=== PATIENT | male | born 1950 | race Caucasian/White ===

== ENCOUNTER → 2018-02-03 16:06 | Outpatient (CLI) | payer MEDICARE, SELFPAY ==
[2018-02-03 16:31] LABS: Absolute Lymphocyte Count 2.25 X10^3/ul (0.83-4.51); Absolute Neutrophil Count 4.2 X10^3/uL (2.0-7.7); Basophil# 0.03 X10^3/uL; Basophil% 0.4 % (0-1); Eosinophils% 2.8 % (0-5); Hematocrit 43.6 % (40-54); Hemoglobin 15.3 g/dl (13.0-16.5); Lymphocyte # 2.25 X10^3/ul (4.0); Lymphocyte % 31.6 % (19-41); Mean Corp Hgb Conc 35.1 g/gl (32-36); Mean Corpuscular Hgb 31.2 pg (27.0-32.0); Mean Platelet Vol. 9.8 fl (6.2-12.0); Monocyte# 0.41 X10^3/uL; Monocyte% 5.8 % (0-10); Neutrophil % 59.1 % (47-70); Platelet Count 221 K/mm3 (150-450); RBC Distribution Width CV 12.5 % (11.6-14.6); RBC Distribution Width SD 40.7 fl (35.1-43.9); White Blood Count 7.1 K/mm3 (4.4-11.0)
[2018-02-03 16:34] LABS: POSITIVE COUNT NO; POSITIVE DIFFERENTIAL NO; POSITIVE MORPHOLOGY NO
[2018-02-03 17:09] LABS: ALB/GLOB Ratio 1.2 RATIO (0.9-2.4); AST(SGOT) 19 U/L (15-37); Alanine Aminotransfer ALT/SGPT 27 U/L (16-61); Albumin, Serum 3.8 g/dL (3.2-5.0); Alkaline Phosphatase 71 U/L (45-117); Anion Gap 9 (5-15); BUN 15 mg/dL (7-18); Calcium,Total 8.9 mg/dL (8.5-10.1); Chloride 104 mmol/L (98-107); Creatinine, Serum 0.94 mg/dL (0.70-1.30); EST Glomerular Filtration Rate 86 mL/min (>60); Est Glom Filt Rate - Afr Amer 104 mL/min (>60); Globulin 3.2 g/dL (2.2-4.2); Glucose 84 mg/dL (74-106); Potassium 4.2 mmol/L (3.5-5.1); Sodium Level 140 mmol/L (136-145); Thyroid Stim Hormone (TSH) 1.78 uIU/mL (0.358-3.74)
[2018-02-04 08:28] LABS: Vitamin D,25 Hydroxy 22.4 ng/mL (29.95-100.01)
[2018-02-05 08:52] LABS: Hep C Antibodies <0.1 s/co ratio (0.0-0.9)
== END ==
PROVIDERS: Visit Provider Family Medicine Geriatric Medicine
DX: Z00.00 Encounter for general adult medical examination without abnormal findings (principal); Z12.5 Encounter for screening for malignant neoplasm of prostate; Z13.89 Encounter for screening for other disorder
CPT/HCPCS: 36415; 80053; 82306; 84153; 84443; 85025; 86803; G0103

== ENCOUNTER → 2018-03-20 07:30 | Outpatient (CLI) | payer MEDICARE, SELFPAY ==
--- NOTE | 2018-03-20 07:33 | US_ITS ---
STUDY: RENAL ULTRASOUND - COMPLETE REASON FOR EXAM: Male, 68 years old. History of renal mass. TECHNIQUE: Ultrasound evaluation of the kidneys was performed with real-time and static duncan-scale imaging. COMPARISON: None. FINDINGS: RIGHT KIDNEY: Normal location of the right kidney, which is normal in size. The right kidney measures 12.5 cm x 7.0 cm x 6.9 cm. There is a normal cortex of the right kidney. The renal cortex measures 1.3 cm. There is no right renal mass or cyst. There are no right renal calculi. There is a moderate to severe degree of hydronephrosis. DISTAL RIGHT URETER: There is mild hydroureter of the distal right ureter. There is no demonstrated right ureterovesical junction calculus. There is a visualized right ureteral jet. LEFT KIDNEY: Normal location of the left kidney, which is normal in size. The left kidney measures 13.8 cm x 5.7 cm x 7.7 cm. There is a normal cortex of the left kidney. The renal cortex measures 1.3 cm. There is no left renal mass or cyst. There are no left renal calculi. There is moderate hydronephrosis of the left kidney. DISTAL LEFT URETER: There is mild hydroureter of the distal left ureter. There is no demonstrated left ureterovesical junction calculus. There is a visualized left ureteral jet. BLADDER: The distended urinary bladder has a volume of 318 ml. Diffuse bladder wall thickening measuring 5 mm. There is no demonstrated mass within the urinary bladder. There are no demonstrated bladder calculi. US/Kidney and Bladder IMPRESSION: Bilateral hydronephrosis right greater than left. Bladder wall thickening. Electronically Signed: Shon Guerrero MD at 14:09 EDT Tel [phone], Service support ,
== END ==
PROVIDERS: Family Provider Family Medicine Geriatric Medicine; PCP Family Medicine Geriatric Medicine; Visit Provider Nurse Practitioner Adult Health
DX: Z87.448 Personal history of other diseases of urinary system (principal)
CPT/HCPCS: 76770

== ENCOUNTER → 2018-04-09 08:49 | Outpatient (CLI) | payer MEDICARE, SELFPAY ==
--- NOTE | 2018-04-09 | PROSBIL_PTH ---
PATIENT: CAROL REED LOC: [facility] U#:[id number] AGE/SX: 75/M ROOM: RE04/09/[address]: Dr. Michael Poe MD : 1950 BED: DIS: SPEC #: [id number] RECD: 04/10/18 09:15 STATUS: SURI JUDI #: [id number] HANNY: 04/09/18 00:[address]: Michael Poe DEPT: SURGICAL PATHOLOGY RECD BY: Carol Caraballo ENTERED: 04/10/18 09:15 SP TYPE: PROST BX JIMMIE DR: Dr. Jorge Roca MD Tissues: A - PROSTATE RIGHT B - PROSTATE RIGHT C - PROSTATE RIGHT D - PROSTATE LEFT E - PROSTATE LEFT F - PROSTATE LEFT Procedures: PROSTATE BX HEADER OPERATION: Prostate biopsy PRE-OP DIAGNOSIS: Elevated PSA TISSUE SUBMITTED: A - Right apex, B - Right mid, C - Right base, D - Left apex, E - Left mid, F - Left base MICROSCOPIC DIAGNOSIS A. Right prostate, apex, core biopsy: Prostatic adenocarcinoma: Link grade: 3+3=6 Number of cores involved: 2 out of 2 Proportion of tissue involved: ~30% Perineural invasion: Not identified. Greatest tumor length: 0.4 cm B. Right prostate, mid, core biopsy: High-grade prostatic intraepithelial neoplasia (HGPIN). Focal acute and chronic inflammation. C. Right prostate, base, core biopsy: Prostatic adenocarcinoma: Carmi grade: 3+3=6 Number of cores involved: 1 out of 2 Proportion of tissue involved: ~5% Perineural invasion: Not identified. Greatest tumor length: 0.6 cm. See comment. Focal high-grade prostatic intraepithelial neoplasia (HGPIN). Focal chronic inflammation. D. Left prostate, apex, core biopsy: Prostatic adenocarcinoma: Carmi grade: 3+4=7 Number of cores involved: 2 out of 2 Proportion of tissue involved: ~90% Perineural invasion: Not identified. Greatest tumor length: 0.9 cm Chronic inflammation. E. Left prostate, mid, core biopsy: Prostatic adenocarcinoma: Link grade: 3+4=7 Number of cores involved: 2 out of 2 Proportion of tissue involved: 30% Perineural invasion: Not identified. Greatest tumor length: ~0.4 cm Chronic inflammation. See comment. F. Left prostate, base, core biopsy: Prostatic adenocarcinoma: Carmi grade: 3+4=7 Number of cores involved: 3 out of 6 Proportion of tissue involved: ~20% Perineural invasion: Not identified. Greatest tumor length: ~0.3 cm Focal high-grade prostatic intraepithelial neoplasia (HGPIN). Chronic inflammation. SJ:slava 04/13/18 COMMENT C & E. The tumor is present in a discontinuous manner. Immunohistochemistry ([id number]) supports the above diagnosis. Case has been reviewed in consultation with Dr. Claudio who concurs with the above diagnosis. IDC:AM MICROSCOPIC DESCRIPTION Slides are reviewed. GROSS DESCRIPTION A - Received is one container designated prostate, right apex. The specimen consists of two elongated fragments of light orr-white soft tissue each measuring 1.2 cm in length and 0.1 cm in diameter. The specimen is totally submitted in one cassette. B - Received is one container designated prostate, right mid. The specimen consists of two elongated fragments of light orr-white soft tissue each measuring 1 cm in length and 0.1 cm in diameter. The specimen is totally submitted in one cassette. C - Received is one container designated prostate, right base. The specimen consists of two elongated fragments of light orr-white soft tissue measuring 0.7 and 1 cm in length and 0.1 cm in diameter. The specimen is totally submitted in one cassette. D - Received is one container designated prostate, left apex. The specimen consists of two elongated fragments of light orr-white soft tissue each measuring 1 cm in length and 0.1 cm in diameter. The specimen is totally submitted in one cassette. E - Received is one container designated prostate, left mid. The specimen consists of two elongated fragments of light orr-white soft tissue measuring 0.7 and 1 cm in length and 0.1 cm in diameter. The specimen is totally submitted in one cassette. F - Received is one container designated prostate, left base. The specimen consists of six elongated fragments of light orr-white soft tissue measuring 0.3 to 0.5 cm in length and 0.1 cm in diameter. The specimen is totally submitted in one cassette. / SJ:slava 04/10/18 TC:0 CPT: G0146
--- NOTE | 2018-04-09 | IMM_PTH ---
PATIENT: CAROL REED LOC: [facility] U#:[id number] AGE/SX: 75/M ROOM: RE04/09/[address]: Dr. Michael Poe MD : 1950 BED: DIS: SPEC #: [id number] RECD: 04/13/18 13:25 STATUS: SURI RETiff #: [id number] HANNY: 04/09/18 00:[address]: Michael Poe DEPT: IMMUNOHISTOCHEMISTRY RECD BY: Alida Vanessa ENTERED: 04/13/18 13:26 SP TYPE: IMMUNO OTHR DR: Dr. Jorge Roca MD Tissues: C - PROSTATE RIGHT E - PROSTATE LEFT Procedures: 34BE12 (add) P40 (add) 34BE12 (initial) PHYSICIAN & INSTITUTION [place] [id number] SPECIMEN INFORMATION: Tissue Source: C - Right prostate, base, core biopsy, E - Left prostate, mid, core biopsy Clinical Info: Elevated PSA Specimen Number: [id number] C & E CPT code: 26453, 87300 x3 METHODOLOGY: Deparaffinized sections of prefer/formalin-fixed tissue or PAP/DQ stained slides are incubated with monoclonal/polyclonal antibodies/oligonucleotide probes. Localization is made via biotin free immunoperoxidase method. Appropriate controls are performed and reacted as expected. Results on target cell population are indicated in the following table: RESULTS: ANTIBODY / CLONE RESULT Block C P40 (BC28) negative 34BE12 (34BE12) negative Block E P40 (BC28) negative 34BE12 (34BE12) negative These tests were developed and their performance characteristics determined by [facility]. They may not have been cleared or approved by the U.S. Food and Drug Administration. The FDA has determined that such clearance or approval is not necessary. INTERPRETATION: C. Right prostate, base, core biopsy: Adenocarcinoma E. Left prostate, mid, core biopsy: Adenocarcinoma SJ:suleman 04/14/18
== END ==
PROVIDERS: Family Provider Family Medicine Geriatric Medicine; PCP Family Medicine Geriatric Medicine; Visit Provider Urology
DX: R97.20 Elevated prostate specific antigen [PSA] (principal)
CPT/HCPCS: 88305; 88341; 88342; G0416

== ENCOUNTER → 2018-04-13 13:03 | Outpatient (CLI) | payer MEDICARE, SELFPAY ==
--- NOTE | 2018-04-13 13:09 | CT_ITS ---
STUDY: CT ABDOMEN AND PELVIS WITH AND WITHOUT CONTRAST REASON FOR EXAM: Male, 68 years old. Bilateral hydronephrosis. History of left renal cancer RADIATION DOSAGE (If Supplied By Facility): CTDIvol = ( 26.93 ) mGy, DLP = ( 3964.67 ) mGycm TECHNIQUE: Transaxial images were obtained from the dome of the diaphragm to the symphysis pubis without oral contrast. 75mL ml of Isovue 300 contrast was administered. Sagittal and coronal images were reconstructed. Individualized dose optimization techniques were used for this CT. COMPARISON: Ultrasound dated 04/08/2018 FINDINGS: There is atelectasis noted at the lung bases. The visualized portions of the heart and pericardium are within normal limits. There are gallstones noted in the gallbladder. There is a 5 mm density in the distal common bile duct (image 41 series 3) which likely represents choledocholithiasis. The common bile duct is dilated, measuring up to 8 mm. There is mild intrahepatic biliary duct dilatation. There are no focal hepatic lesions. The spleen, pancreas and adrenal glands are within normal limits. There is a 6 mm nonobstructing stone in the collecting system of the right kidney. There are no additional urinary calculi. There is severe bilateral hydroureteronephrosis with no cause identified on this study. Please note that the distal ureters and urinary bladder are not well evaluated due to streak artifact due to the patient's bilateral hip replacements. The urinary bladder wall appears trabeculated. This may be due to bladder outlet obstruction. There is symmetric enhancement and excretion noted in the kidneys following contrast administration. There are no focal renal lesions. There is no bowel obstruction or inflammation. The appendix is normal. The aorta is normal in caliber. There is no abdominal or pelvic free air, free fluid or lymphadenopathy. There are no destructive osseous lesions. CT/CT Abd/Pelvis W/WO Contrast IMPRESSION: Severe bilateral hydroureteronephrosis with no cause identified on this study. However, please note that the distal ureters and urinary bladder are not well evaluated due to streak artifact from the patient's bilateral hip replacements. If indicated, further evaluation with cystoscopy can be performed. Trabeculated appearance of the urinary bladder which may be due to bladder outlet obstruction. 6 mm nonobstructing right renal stone. No additional urinary calculi. No focal renal lesions. Cholelithiasis with probable 5 mm choledocholithiasis in the distal common bile duct. Mild intrahepatic and extrahepatic biliary duct dilatation. If indicated, further evaluation with MRCP can be performed. Electronically Signed: Christopher Richmond, at 17:24 EDT Tel , Service support ,
[2018-04-13 13:30] LABS: CREATININE FINGERSTICK 0.8 mg/dL (0.70-1.30); EGFR FINGERSTICK > 60.0000 mL/min (>60)
== END ==
PROVIDERS: Family Provider Family Medicine Geriatric Medicine; PCP Family Medicine Geriatric Medicine; Visit Provider Nurse Practitioner Adult Health
DX: N13.30 Unspecified hydronephrosis (principal)
CPT/HCPCS: 74178; Q9967

== ENCOUNTER 2018-04-24 12:35 | Day surgery (SDC) | payer MEDICARE, SELFPAY ==
[2018-04-21 08:10] VITALS: BP 111/65; PULSE 70; RESP 16; TEMP 36.4; O2SAT 97; BMI 30.7
--- NOTE | 2018-04-21 08:24 | SDCEKG_ITS ---
Test Reason : Blood Pressure : / mmHG Vent. Rate : 063 BPM Atrial Rate : 064 BPM P-R Int : 000 ms QRS Dur : 100 ms QT Int : 402 ms P-R-T Axes : 000 039 032 degrees QTc Int : 411 ms Normal sinus rhythm Normal ECG Confirmed by SIMÓN MORENO, RIGO ([id number]), rewrite editor CARYN REED ([id number]) on 04/23/2018 2:36:01 PM Referred By: Michael Poe Confirmed By:RIGO GR MD
[2018-04-24] VITALS (9 sets, daily range): BP systolic 136–155; BP diastolic 77–98; PULSE 48–75; RESP 14–16; TEMP 36.4–36.7; O2SAT 98–100; BMI 30.7
[2018-04-24] MEDS: Cefazolin 2 GM in 0.9% Normal Saline 100 ML IV (14:48)
[2018-04-24] MEDS: Lubricating Jelly 60 GM Tube 30 GM TOPICAL (15:00)
--- NOTE | 2018-04-24 15:41 | PCM.OPRPT ---
Report of Operation Date of Procedure: 04/24/18 Pre-Operative Diagnosis: Prostate cancer BPH with obstruction dilated atonic bladder bilateral hydronephrosis Post-Operative Diagnosis: Same Surgery/Procedure Performed:: Transurethral resection of the prostate and placement of 3 gold fiducial markers into the prostate Description of Surgical Findings:: 68-year-old male with an elevated PSA was found to have prostate cancer [place] 7 disease and he had developed urinary retention with bilateral hydronephrosis. Presents today for transurethral resection of the prostate to hopefully restore normal voiding but I spoke extensively with the patient possibility may have the learn self intermittent catheterization. His bladder does appear very distended and atonic and weak with lots trabeculation and saccules and diverticuli he had bilateral hydronephrosis on CAT scan. Plan to do a resection of the prostate today and also will place cold markers in anticipation for radiation therapy. 68-year-old male taken back to the operating room after smooth induction of general anesthesia he was placed supine on the table in the dorsolithotomy position the penis testicles are prepped and draped in usual sterile fashion, I then went into the urethra with a 26 Guyanese continuous flow Olympus resectoscope, found a very high riding bladder neck very short length prostate with obstruction inside the bladder had very dilated bladder with trabeculation saccules and diverticuli throughout left and right ureteral orifice were identified and were fairly patulous. I then switched the resectoscope in and use the loop and resected the bladder neck making sure not to undermine the bladder neck and then resected the right lobe of the prostate resect the left of the prostate and resection of apical tissue the prostate, resection did not take very long to open up a channel between the verumontanum and the bladder neck and then very carefully resected the apical tissue, I elected out all the chips out of the bladder and then placed a 22 Guyanese catheter into the bladder, and then had fairly clear urine with a catheter running continuous bladder irrigation, I then did a prostate exam and a fairly firm prostate bilaterally and using digital guidance I introduced to gold markers in the right side of the prostate and then a green chain marker in the left side of the prostate once the gold markers were placed in the prostate then the patient's anesthetic was worse taken back to the PACU in good condition. Type of Anesthesia:: General Drains: fr [address] - Admit VTE Documentation VTE Present on Admission: No VTE Mechan Device Prophylaxis: SCD's VTE Pharm Prophylaxis ordered?: No Reason prophylaxis not ordered:: Treatment Not Indicated
[2018-04-24] MEDS: Docusate Sodium 100 MG Capsule PO (22:20)
[2018-04-24] MEDS: Pravastatin 40 MG Tablet PO (22:20)
[2018-04-24] MEDS: Ciprofloxacin 500 MG Tablet PO (22:20)
[2018-04-24] MEDS: 0.9% Normal Saline 1,000 ML 75 ML IV (22:24)
[2018-04-25 02:31] VITALS: BP 116/65; PULSE 62; RESP 14; TEMP 36.8; O2SAT 96
[2018-04-25 08:30] VITALS: BP 131/83; PULSE 70; RESP 18; TEMP 36.6; O2SAT 98
[2018-04-25] MEDS: Lisinopril 10 MG Tablet PO (08:46)
[2018-04-25] MEDS: Pantoprazole Sodium 40 MG Tablet PO (08:46)
[2018-04-25] MEDS: Docusate Sodium 100 MG Capsule PO (08:46)
[2018-04-25] MEDS: Ciprofloxacin 500 MG Tablet PO (08:46)
[2018-04-25] MEDS: HYDROCHLOROTHIAZIDE 12.5 MG CAPSULE PO (08:46)
--- NOTE | 2018-04-25 10:11 | PCM.DC.URO ---
Discharge Diet: Light diet - advance as tolerated Discharge Activity: May Shower Call your doctor if your incision/area has: Sudden Increased Bleeding Call your doctor if you observe: Fever of 101 or Higher Instructions: Transurethral Resection of the Prostate (TURP): Home Recovery Allergies/Adverse Reactions: Allergies No Known Allergies Allergy (Verified 04/21/18 08:09) Medications to take at Discharge Lisinopril/Hydrochlorothiazide [Zestoretic 10/12.5 Tablet] 1 tablet PO DAILY 04/21/18 Pravastatin [Pravachol] 40 mg PO QHS 04/21/18 Ciprofloxacin [Cipro] 500 mg PO BID #14 tab 04/25/18 Primary Care Physician: Jorge Roca Chi, MD [Primary Care Provider] - Test Results: Test results from this visit will be discussed in further detail at your follow-up appointment, if applicable. Please Follow Up With: Michael Poe MD When: , please call to make an appointment.
--- NOTE | 2018-04-27 | PROS_PTH ---
PATIENT: CAROL REED [place] [facility] [place][id number] AGE/SX: 68/M ROOM: RE04/24/[address]: Dr. Michael Poe MD : 1950 BED: DIS: 04/25/2018 SPEC #: [id number] RECD: 04/27/18 14:43 STATUS: SURI RETiff #: [id number] HANNY: 04/27/18 00:[address]: Michael Poe DEPT: SURGICAL PATHOLOGY RECD BY: Denton Mehta ENTERED: 04/27/18 14:43 SP TYPE: TURP OTHR DR: Dr. Jorge Roca MD Tissues: Prostate, NOS Procedures: Surgery Specimen Level IV HEADER OPERATION: Cysto, TUR prostate, Olympus PRE-OP DIAGNOSIS: Prostate cancer, BPH with obstruction, chronic bladder obstruction TISSUE SUBMITTED: Prostate chips MICROSCOPIC DIAGNOSIS Prostate chips, TUR: Prostatic adenocarcinoma. See cancer summary below. PROSTATE CANCER (TUR) SUMMARY: Procedure ? transurethral prostatic resection Specimen weight ? 10.4 gm Histologic type ? adenocarcinoma (acinar, not otherwise specified) Histologic grade (Aston Pattern) - Primary (predominant) pattern - 3 Secondary (worst remaining) pattern - 3 Total Link score - 6 Tumor quantification (TUR specimen): Proportion (%) of prostatic tissue involved by tumor - <1% Number of positive chips - 1 Total number of chips - ~100 Periprostatic fat invasion ? not identified Seminal vesicle invasion ? not applicable Lymph-Vascular invasion ? not identified Perineural invasion ? not identified Additional pathologic findings ? benign prostatic hyperplasia, glandular and stromal type. - Mild acute inflammation and moderate chronic inflammation with focal granuloma formation. The above summary is in compliance with [employer] (CAP) Cancer Protocols Checklist and [place] Joint Committee on Cancer (AJCC), Staging Manual, 8th Ed. SJ:slava 04/28/18 COMMENT Please make reference to previous specimen ([id number]) right prostate, apex and base and left prostate, apex, mid and base, core biopsies with diagnosis of prostatic adenocarcinoma. Immunohistochemistry ([id number]) supports the above diagnosis. Case has been reviewed in consultation with Dr. Claudio who concurs with the above diagnosis. IDC:AM MICROSCOPIC DESCRIPTION Slides are reviewed. GROSS DESCRIPTION Received is one container labeled with the patient's name and designated prostate tissue. The specimen consists of multiple irregular fragments of pink-orr, rubbery, soft tissue that in aggregate weigh 10.4 gm and measure in aggregate 4 x 4 x 2 cm. The entire specimen is submitted in ten cassettes. / CHALO:slava 04/27/18 TC:0 CPT: 97020
--- NOTE | 2018-04-27 | IMM_PTH ---
PATIENT: CAROL REED [place] [facility] [place][id number] AGE/SX: 68/M ROOM: RE04/24/[address]: Dr. Michael Poe MD : 1950 BED: DIS: 04/25/2018 SPEC #: [id number] RECD: 04/28/18 13:54 STATUS: SURI REQ #: [id number] HANNY: 04/27/18 00:[address]: Michael Poe DEPT: IMMUNOHISTOCHEMISTRY RECD BY: Alida Vanessa ENTERED: 04/28/18 13:55 SP TYPE: IMMUNO OTHR DR: Dr. Jorge Roca MD Tissues: Prostate, NOS Procedures: P40 (add) 34BE12 (initial) PHYSICIAN & INSTITUTION [place] [address] SPECIMEN INFORMATION: Tissue Source: Prostate chips Clinical Info: Prostate cancer, BPH with obstruction Specimen Number: [id number] #1 CPT code: 74894, 35513 METHODOLOGY: Deparaffinized sections of prefer/formalin-fixed tissue or PAP/DQ stained slides are incubated with monoclonal/polyclonal antibodies/oligonucleotide probes. Localization is made via biotin free immunoperoxidase method. Appropriate controls are performed and reacted as expected. Results on target cell population are indicated in the following table: RESULTS: ANTIBODY / CLONE RESULT Block 1 P40 (BC28) negative 34BE12 (34BE12) negative These tests were developed and their performance characteristics determined by [facility]. They may not have been cleared or approved by the U.S. Food and Drug Administration. The FDA has determined that such clearance or approval is not necessary. INTERPRETATION: Prostate chips, TUR: Adenocarcinoma. CHALO:slava 04/29/18
== END 2018-04-25 13:16 | disposition home or self-care (01) ==
LOC: SDC 12:36 → AC 12:36 → MS3 04-27 10:23
PROVIDERS: Family Provider Family Medicine Geriatric Medicine; PCP Family Medicine Geriatric Medicine; Visit Provider Urology
PROC: (CPT 52601; principal; 2018-04-24 15:40)
DX: C61 Malignant neoplasm of prostate (principal); N40.1 Benign prostatic hyperplasia with lower urinary tract symptoms; N13.8 Other obstructive and reflux uropathy; R33.8 Other retention of urine; R35.1 Nocturia; R39.12 Poor urinary stream; R97.21 Rising PSA following treatment for malignant neoplasm of prostate; N31.2 Flaccid neuropathic bladder, not elsewhere classified; N13.30 Unspecified hydronephrosis; I10 Essential (primary) hypertension; E78.00 Pure hypercholesterolemia, unspecified; G83.9 Paralytic syndrome, unspecified; Z79.899 Other long term (current) drug therapy
CPT/HCPCS: 52601; 55876; 88305; 88341; 88342; 93005; J7030; J7120; J2405

== ENCOUNTER → 2018-05-07 10:52 | Outpatient (CLI) | payer MEDICARE, SELFPAY ==
[2018-05-07 12:12] LABS: Anion Gap 9 (5-15); BUN 15 mg/dL (7-18); BUN/Creat Ratio 16.7 RATIO (10-20); Calcium,Total 9.2 mg/dL (8.5-10.1); Chloride 102 mmol/L (98-107); EST Glomerular Filtration Rate 90 mL/min (>60); Est Glom Filt Rate - Afr Amer 109 mL/min (>60); Glucose 96 mg/dL (74-106); Potassium 4.2 mmol/L (3.5-5.1); Sodium Level 140 mmol/L (136-145)
== END ==
PROVIDERS: Family Provider Family Medicine Geriatric Medicine; PCP Family Medicine Geriatric Medicine; Visit Provider Urology
DX: C61 Malignant neoplasm of prostate (principal); N40.1 Benign prostatic hyperplasia with lower urinary tract symptoms; N13.8 Other obstructive and reflux uropathy
CPT/HCPCS: 36415; 80048

== ENCOUNTER → 2018-05-12 07:40 | Outpatient (CLI) | payer MEDICARE, SELFPAY ==
--- NOTE | 2018-05-12 07:50 | US_ITS ---
STUDY: RENAL ULTRASOUND - COMPLETE REASON FOR EXAM: Male, 68 years old. Follow-up history of bilateral hydronephrosis. History of prostate cancer and prostate surgery. TECHNIQUE: Ultrasound evaluation of the kidneys was performed with real-time and static duncan-scale imaging. COMPARISON: CT abdomen and pelvis 04/13/2018 FINDINGS: RIGHT KIDNEY: 11.9 x 5.4 x 7.0 cm. Cortical thickness 1.3 cm, normal. Cortical echotexture normal. Grade 3 hydronephrosis with ectasia and blunting of the calyces. Similar features seen on recent prior CT imaging. LEFT KIDNEY: 13.5 x 7.1 x 7.0 cm. Normal cortical thickness 1.1 cm. Normal cortical echotexture.. 2 hydronephrosis ectasia of the renal pelvis, ectasia of the calyces, without significant calyceal blunting, appears to be improved compared to prior CT imaging. BLADDER: Thickened bladder wall up to 5 mm, trabeculations, bladder diverticula, concordant with prior CT imaging features. The prostate measures 4.5 x 5.1 x 3.3 cm, enlarged. US/Kidney and Bladder IMPRESSION: Persistent bilateral hydronephrosis, greater on the right, grade 2 on the left. Stable chronic trabeculation, wall thickening and diverticula of the urinary bladder. Electronically Signed: Ruben Baptiste, at 11:26 EDT Tel , Service support ,
== END ==
PROVIDERS: Family Provider Family Medicine Geriatric Medicine; PCP Family Medicine Geriatric Medicine; Visit Provider Urology
DX: C61 Malignant neoplasm of prostate (principal); N40.0 Benign prostatic hyperplasia without lower urinary tract symptoms; N13.39 Other hydronephrosis; N32.89 Other specified disorders of bladder; N32.3 Diverticulum of bladder
CPT/HCPCS: 76770

== ENCOUNTER → 2018-06-16 12:08 | Outpatient (CLI) | payer MEDICARE, SELFPAY ==
[2018-06-16 13:54] LABS: Absolute Neutrophil Count 3.4 X10^3/uL (2.0-7.7); Basophil# 0.03 X10^3/uL; Basophil% 0.5 % (0-1); Eosinophil# 0.26 X10^3/uL; Hematocrit 41.9 % (40-54); Hemoglobin 14.5 g/dl (13.0-16.5); Lymphocyte % 35.7 % (19-41); Mean Corp Hgb Conc 34.6 g/gl (32-36); Mean Corpuscular Hgb 30.9 pg (27.0-32.0); Mean Corpuscular Volume 89.3 fL (80-94); Mean Platelet Vol. 10.1 fl (6.2-12.0); Monocyte# 0.46 X10^3/uL; Monocyte% 7.1 % (0-10); Neutrophil # 3.38 X10^3/uL (2.7-7.7); Neutrophil % 52.5 % (47-70); Platelet Count 212 K/mm3 (150-450); RBC Distribution Width CV 12.7 % (11.6-14.6); RBC Distribution Width SD 40.6 fl (35.1-43.9); Red Blood Count 4.69 M/mm3 (4.6-6.2); White Blood Count 6.4 K/mm3 (4.4-11.0)
[2018-06-16 13:55] LABS: POSITIVE COUNT NO; POSITIVE DIFFERENTIAL NO; POSITIVE MORPHOLOGY NO
[2018-06-16 14:06] LABS: Creatinine, Serum 0.94 mg/dL (0.70-1.30); EST Glomerular Filtration Rate 85 mL/min (>60); Est Glom Filt Rate - Afr Amer 103 mL/min (>60)
== END ==
PROVIDERS: Family Provider Family Medicine Geriatric Medicine; PCP Family Medicine Geriatric Medicine; Visit Provider Radiology Radiation Oncology
DX: C61 Malignant neoplasm of prostate (principal); Z01.818 Encounter for other preprocedural examination
CPT/HCPCS: 36415; 82565; 85025

== ENCOUNTER → 2018-06-17 12:32 | Outpatient (CLI) | payer MEDICARE, SELFPAY | PROVIDERS: Family Provider Family Medicine Geriatric Medicine; PCP Family Medicine Geriatric Medicine; Visit Provider Radiology Radiation Oncology | DX: C61 Malignant neoplasm of prostate (principal) | CPT/HCPCS: 51600; 72193; Q9965; Q9967 ==

== ENCOUNTER → 2018-06-25 06:49 | Outpatient (CLI) | payer MEDICARE, SELFPAY | PROVIDERS: Family Provider Family Medicine Geriatric Medicine; PCP Family Medicine Geriatric Medicine; Visit Provider Radiology Radiation Oncology | DX: C61 Malignant neoplasm of prostate (principal); Z96.643 Presence of artificial hip joint, bilateral | CPT/HCPCS: 72197; A9585 ==

== ENCOUNTER → 2018-07-22 16:04 | Outpatient (CLI) | payer MEDICARE, SELFPAY ==
[2018-07-22 17:17] LABS: Absolute Neutrophil Count 3.6 X10^3/uL (2.0-7.7); Basophil# 0.02 X10^3/uL; Basophil% 0.4 % (0-1); Eosinophil# 0.23 X10^3/uL; Eosinophils% 4.2 % (0-5); Hematocrit 39.8 % (40-54); Hemoglobin 13.9 g/dl (13.0-16.5); Lymphocyte % 23.9 % (19-41); Mean Corp Hgb Conc 34.9 g/gl (32-36); Mean Corpuscular Hgb 30.7 pg (27.0-32.0); Mean Corpuscular Volume 87.9 fL (80-94); Mean Platelet Vol. 9.7 fl (6.2-12.0); Monocyte# 0.28 X10^3/uL; Monocyte% 5.1 % (0-10); Neutrophil # 3.61 X10^3/uL (2.7-7.7); Neutrophil % 66.4 % (47-70); Platelet Count 150 K/mm3 (150-450); RBC Distribution Width CV 12.6 % (11.6-14.6); RBC Distribution Width SD 40.5 fl (35.1-43.9); Red Blood Count 4.53 M/mm3 (4.6-6.2); White Blood Count 5.4 K/mm3 (4.4-11.0)
[2018-07-22 17:25] LABS: POSITIVE COUNT NO; POSITIVE DIFFERENTIAL NO; POSITIVE MORPHOLOGY NO
== END ==
PROVIDERS: Family Provider Family Medicine Geriatric Medicine; PCP Family Medicine Geriatric Medicine; Referring Provider Radiology Radiation Oncology; Visit Provider Radiology Radiation Oncology
DX: C61 Malignant neoplasm of prostate (principal)
CPT/HCPCS: 36415; 85025

== ENCOUNTER → 2018-08-13 12:58 | Outpatient (CLI) | payer MEDICARE, SELFPAY ==
[2018-08-13 13:40] LABS: Absolute Lymphocyte Count 0.96 X10^3/ul (0.83-4.51); Absolute Neutrophil Count 3.8 X10^3/uL (2.0-7.7); Basophil# 0.03 X10^3/uL; Basophil% 0.5 % (0-1); Eosinophil# 0.37 X10^3/uL; Eosinophils% 6.6 % (0-5); Hematocrit 37.8 % (40-54); Hemoglobin 13.1 g/dl (13.0-16.5); Lymphocyte # 0.96 X10^3/ul (4.0); Lymphocyte % 17.1 % (19-41); Mean Corp Hgb Conc 34.7 g/gl (32-36); Mean Corpuscular Hgb 30.5 pg (27.0-32.0); Mean Corpuscular Volume 88.1 fL (80-94); Mean Platelet Vol. 9.1 fl (6.2-12.0); Monocyte# 0.41 X10^3/uL; Monocyte% 7.3 % (0-10); Neutrophil # 3.83 X10^3/uL (2.7-7.7); Neutrophil % 68.3 % (47-70); Platelet Count 173 K/mm3 (150-450); RBC Distribution Width CV 13.3 % (11.6-14.6); Red Blood Count 4.29 M/mm3 (4.6-6.2); White Blood Count 5.6 K/mm3 (4.4-11.0)
[2018-08-13 13:42] LABS: POSITIVE COUNT NO; POSITIVE DIFFERENTIAL NO; POSITIVE MORPHOLOGY NO
== END ==
PROVIDERS: Family Provider Family Medicine Geriatric Medicine; PCP Family Medicine Geriatric Medicine; Referring Provider Radiology Radiation Oncology; Visit Provider Radiology Radiation Oncology
DX: C61 Malignant neoplasm of prostate (principal)
CPT/HCPCS: 36415; 85025

== ENCOUNTER → 2019-02-09 12:08 | Outpatient (CLI) | payer MEDICARE, SELFPAY ==
[2019-02-09 12:43] LABS: Absolute Lymphocyte Count 1.28 X10^3/ul (0.83-4.51); Absolute Neutrophil Count 2.5 X10^3/uL (2.0-7.7); Basophil# 0.02 X10^3/uL; Basophil% 0.5 % (0-1); Eosinophil# 0.19 X10^3/uL; Eosinophils% 4.5 % (0-5); Hematocrit 38.5 % (40-54); Hemoglobin 13.5 g/dl (13.0-16.5); Lymphocyte # 1.28 X10^3/ul (4.0); Mean Corp Hgb Conc 35.1 g/gl (32-36); Mean Corpuscular Hgb 30.7 pg (27.0-32.0); Mean Corpuscular Volume 87.5 fL (80-94); Mean Platelet Vol. 9.6 fl (6.2-12.0); Monocyte# 0.23 X10^3/uL; Monocyte% 5.4 % (0-10); Neutrophil # 2.53 X10^3/uL (2.7-7.7); Neutrophil % 59.4 % (47-70); Platelet Count 188 K/mm3 (150-450); RBC Distribution Width CV 13.1 % (11.6-14.6); RBC Distribution Width SD 41.8 fl (35.1-43.9); White Blood Count 4.3 K/mm3 (4.4-11.0)
[2019-02-09 12:50] LABS: POSITIVE COUNT NO; POSITIVE DIFFERENTIAL NO; POSITIVE MORPHOLOGY NO
[2019-02-09 13:05] LABS: ALB/GLOB Ratio 1.4 RATIO (0.9-2.4); AST(SGOT) 19 U/L (15-37); Alanine Aminotransfer ALT/SGPT 30 U/L (16-61); Albumin, Serum 4.1 g/dL (3.2-5.0); Alkaline Phosphatase 60 U/L (45-117); Anion Gap 4 (5-15); BUN 20 mg/dL (7-18); Calcium,Total 9.5 mg/dL (8.5-10.1); Chloride 104 mmol/L (98-107); Creatinine, Serum 0.95 mg/dL (0.70-1.30); EST Glomerular Filtration Rate 83 mL/min (>60); Est Glom Filt Rate - Afr Amer 101 mL/min (>60); Glucose 119 mg/dL (74-106); Protein, Total 7.1 g/dL (6.4-8.2); Sodium Level 137 mmol/L (136-145); Thyroid Stim Hormone (TSH) 1.48 uIU/mL (0.358-3.74)
== END ==
PROVIDERS: Family Provider Family Medicine Geriatric Medicine; PCP Family Medicine Geriatric Medicine; Visit Provider Family Medicine Geriatric Medicine
DX: E55.9 Vitamin D deficiency, unspecified (principal); R53.83 Other fatigue
CPT/HCPCS: 36415; 80053; 82306; 84443; 85025

== ENCOUNTER → 2019-02-25 09:13 | Outpatient (CLI) | payer MEDICARE, SELFPAY ==
[2019-02-25 10:45] LABS: PSA,Total- Diagnostic < 0.01 ng/mL (0.0-4.0)
== END ==
PROVIDERS: Family Provider Family Medicine Geriatric Medicine; PCP Family Medicine Geriatric Medicine; Referring Provider Urology; Visit Provider Urology
DX: C61 Malignant neoplasm of prostate (principal)
CPT/HCPCS: 36415; 84153

== ENCOUNTER → 2019-08-12 09:55 | Outpatient (CLI) | payer MEDICARE, SELFPAY ==
[2019-08-12 12:53] LABS: Absolute Lymphocyte Count 1.51 X10^3/uL (0.83-4.51); Absolute Neutrophil Count 3.2 X10^3/uL (2.0-7.7); Basophil# 0.04 X10^3/uL; Basophil% 0.7 % (0-1); Eosinophil# 0.23 X10^3/uL; Eosinophils% 4.2 % (0-5); Hematocrit 42.4 % (40-54); Hemoglobin 14.6 g/dL (13.0-16.5); Lymphocyte # 1.51 X10^3/ul (4.0); Lymphocyte % 27.7 % (19-41); Mean Corp Hgb Conc 34.4 g/dL (32-36); Mean Corpuscular Hgb 30.4 pg (27.0-32.0); Mean Corpuscular Volume 88.3 fL (80-94); Mean Platelet Vol. 9.6 fl (6.2-12.0); Monocyte# 0.49 X10^3/uL; NRBC Flagged by Analyzer 0 % (0-5); Neutrophil # 3.18 X10^3/uL (2.7-7.7); Neutrophil % 58.2 % (47-70); Platelet Count 215 K/mm3 (150-450); RBC Distribution Width CV 12.6 % (11.6-14.6); White Blood Count 5.5 K/mm3 (4.4-11.0)
[2019-08-12 13:42] LABS: ALB/GLOB Ratio 1.2 RATIO (0.9-2.4); AST(SGOT) 21 U/L (15-37); Alanine Aminotransfer ALT/SGPT 32 U/L (16-61); Alkaline Phosphatase 58 U/L (45-117); Anion Gap 7 (5-15); BUN 27 mg/dL (7-18); BUN/Creat Ratio 25.2 RATIO (10-20); Calcium,Total 9.8 mg/dL (8.5-10.1); Chloride 101 mmol/L (98-107); Creatinine, Serum 1.07 mg/dL (0.70-1.30); EST Glomerular Filtration Rate 73 mL/min (>60); Est Glom Filt Rate - Afr Amer 88 mL/min (>60); Globulin 3.3 g/dL (2.2-4.2); Glucose 68 mg/dL (74-106); Protein, Total 7.3 g/dL (6.4-8.2); Sodium Level 136 mmol/L (136-145); Thyroid Stim Hormone (TSH) 1.34 uIU/mL (0.358-3.74)
== END ==
PROVIDERS: Family Provider Family Medicine Geriatric Medicine; PCP Family Medicine Geriatric Medicine; Visit Provider Family Medicine Geriatric Medicine
DX: E55.9 Vitamin D deficiency, unspecified (principal); I10 Essential (primary) hypertension
CPT/HCPCS: 36415; 80053; 82306; 84443; 85025

== ENCOUNTER → 2019-08-23 10:55 | Outpatient (CLI) | payer MEDICARE, SELFPAY ==
[2019-08-23 12:35] LABS: PSA,Total- Diagnostic 0.04 ng/mL (0.0-4.0)
== END ==
PROVIDERS: Family Provider Family Medicine Geriatric Medicine; PCP Family Medicine Geriatric Medicine; Referring Provider Urology; Visit Provider Urology
DX: C61 Malignant neoplasm of prostate (principal)
CPT/HCPCS: 36415; 84153

== ENCOUNTER → 2020-02-11 10:10 | Outpatient (CLI) | payer MEDICARE, SELFPAY ==
[2020-02-11 10:33] LABS: Absolute Lymphocyte Count 1.48 X10^3/uL (0.83-4.51); Absolute Neutrophil Count 3.6 X10^3/uL (2.0-7.7); Basophil# 0.03 X10^3/uL; Basophil% 0.5 % (0-1); Eosinophil# 0.21 X10^3/uL; Eosinophils% 3.7 % (0-5); Hematocrit 43.9 % (40-54); Hemoglobin 14.9 g/dL (13.0-16.5); Lymphocyte # 1.48 X10^3/ul (4.0); Mean Corp Hgb Conc 33.9 g/dL (32-36); Mean Corpuscular Hgb 30.3 pg (27.0-32.0); Mean Corpuscular Volume 89.4 fL (80-94); Mean Platelet Vol. 9.6 fl (6.2-12.0); Monocyte# 0.33 X10^3/uL; Monocyte% 5.8 % (0-10); NRBC Flagged by Analyzer 0 % (0-5); Neutrophil # 3.62 X10^3/uL (2.7-7.7); Neutrophil % 63.6 % (47-70); Platelet Count 198 K/mm3 (150-450); RBC Distribution Width CV 12.3 % (11.6-14.6); RBC Distribution Width SD 40.6 fl (35.1-43.9); Red Blood Count 4.91 M/mm3 (4.6-6.2); White Blood Count 5.7 K/mm3 (4.4-11.0)
[2020-02-11 10:58] LABS: Vitamin D,25 Hydroxy 33.9 ng/mL
[2020-02-11 11:03] LABS: ALB/GLOB Ratio 1.2 RATIO (0.9-2.4); AST(SGOT) 15 U/L (15-37); Alanine Aminotransfer ALT/SGPT 30 U/L (16-61); Albumin, Serum 3.9 g/dL (3.2-5.0); Alkaline Phosphatase 61 U/L (45-117); Anion Gap 3 (5-15); BUN 24 mg/dL (7-18); BUN/Creat Ratio 25.7 RATIO (10-20); Calcium,Total 9.3 mg/dL (8.5-10.1); Chloride 105 mmol/L (98-107); Creatinine, Serum 0.93 mg/dL (0.70-1.30); EST Glomerular Filtration Rate 85 mL/min (>60); Est Glom Filt Rate - Afr Amer 103 mL/min (>60); Globulin 3.2 g/dL (2.2-4.2); Glucose 85 mg/dL (74-106); Potassium 4.6 mmol/L (3.5-5.1); Protein, Total 7.1 g/dL (6.4-8.2); Sodium Level 137 mmol/L (136-145); Thyroid Stim Hormone (TSH) 1.21 uIU/mL (0.358-3.74)
== END ==
PROVIDERS: PCP Family Medicine Geriatric Medicine; Referring Provider Family Medicine Geriatric Medicine; Visit Provider Family Medicine Geriatric Medicine
DX: E55.9 Vitamin D deficiency, unspecified (principal); I10 Essential (primary) hypertension
CPT/HCPCS: 36415; 80053; 82306; 84443; 85025

== ENCOUNTER → 2020-03-07 09:03 | Outpatient (CLI) | payer MEDICARE, SELFPAY ==
[2020-03-07 10:03] LABS: PSA,Total- Diagnostic 0.07 ng/mL (0.0-4.0)
== END ==
PROVIDERS: Family Provider Family Medicine Geriatric Medicine; PCP Family Medicine Geriatric Medicine; Referring Provider Urology; Visit Provider Urology
DX: C61 Malignant neoplasm of prostate (principal)
CPT/HCPCS: 36415; 84153

== ENCOUNTER → 2020-06-27 15:28 | Outpatient (CLI) | payer MEDICARE, SELFPAY ==
--- NOTE | 2020-06-27 | TISS_PTH ---
PATIENT: CAROL REED [facility] U#:[id number] AGE/SX: 75/M ROOM: RE06/27/[address]: Dr. Jorge Roca MD : 1950 BED: DIS: SPEC #: [id number] RECD: 06/27/20 16:22 STATUS: SURI JUDI #: [id number] HANNY: 06/27/20 00:[address]: Jorge Roca Chi DEPT: SURGICAL PATHOLOGY RECD BY: Sophia Weber Tissues: Skin of back, NOS Procedures: Surgery Specimen Level IV HEADER OPERATION: Biopsy PRE-OP DIAGNOSIS: Back L98.9 TISSUE SUBMITTED: Back MICROSCOPIC DIAGNOSIS Back lesion, biopsy: Intradermal blue nevus, completely excised in the planes of sections examined. SJ:slava 06/29/20 COMMENT Case has been reviewed in consultation with Dr. Claudio who concurs with the above diagnosis. IDC:AM MICROSCOPIC DESCRIPTION Slides are reviewed. GROSS DESCRIPTION Received in fixative is one container labeled with the patient's name and designated back. The specimen consists of a discoid fragment of light to dark orr shave skin measuring 0.6 x 0.6 x 0.2 cm. The cutaneous surface contains a hyperpigmented lesion measuring 5 mm in greatest dimension. The specimen is inked, sectioned and totally submitted in one cassette. / AM:slava 06/28/20 TC:1 CPT: 28250
== END ==
PROVIDERS: PCP Family Medicine Geriatric Medicine; Visit Provider Family Medicine Geriatric Medicine
DX: L98.9 Disorder of the skin and subcutaneous tissue, unspecified (principal)
CPT/HCPCS: 88305

== ENCOUNTER → 2020-08-15 10:03 | Outpatient (CLI) | payer MEDICARE, SELFPAY ==
--- NOTE | 2020-08-15 11:15 | RAD_ITS ---
STUDY: X-RAY - RIGHT KNEE REASON FOR EXAM: Male, 70 years old. right knee pain, chronic -- no specific injury TECHNIQUE: 4 view(s) of the knee. COMPARISON: None. FINDINGS: Normal visualized distal femur. Normal visualized proximal tibia and fibula. Normal proximal tibiofibular articulation. There is no demonstrated fracture. There is mild degenerative arthrosis of the medial femorotibial compartment. Normal lateral femorotibial compartment. Normal patellofemoral articulation. There is no demonstrated joint effusion. Several small loose bodies are seen in the posterior aspect of the joint space. The soft tissue structures are unremarkable. RAD/Knee 4 or More Views IMPRESSION: Degenerative arthrosis. Electronically Signed: Virgil Oliver MD at 22:31 EDT , Service support ,
[2020-08-15 12:47] LABS: Absolute Lymphocyte Count 1.47 X10^3/uL (0.83-4.51); Absolute Neutrophil Count 3.5 X10^3/uL (2.0-7.7); Basophil# 0.03 X10^3/uL; Basophil% 0.5 % (0-1); Eosinophil# 0.15 X10^3/uL; Eosinophils% 2.7 % (0-5); Hematocrit 45.7 % (40-54); Hemoglobin 15.7 g/dL (13.0-16.5); Lymphocyte # 1.47 X10^3/ul (4.0); Lymphocyte % 26.3 % (19-41); Mean Corp Hgb Conc 34.4 g/dL (32-36); Mean Corpuscular Hgb 30.4 pg (27.0-32.0); Mean Corpuscular Volume 88.6 fL (80-94); Mean Platelet Vol. 10.1 fl (6.2-12.0); Monocyte# 0.39 X10^3/uL; NRBC Flagged by Analyzer 0 % (0-5); Neutrophil # 3.54 X10^3/uL (2.7-7.7); Neutrophil % 63.3 % (47-70); Platelet Count 215 K/mm3 (150-450); RBC Distribution Width CV 12.3 % (11.6-14.6); RBC Distribution Width SD 40.1 fl (35.1-43.9); Red Blood Count 5.16 M/mm3 (4.6-6.2); White Blood Count 5.6 K/mm3 (4.4-11.0)
[2020-08-15 12:56] LABS: Vitamin D,25 Hydroxy 22.9 ng/mL
[2020-08-15 13:34] LABS: ALB/GLOB Ratio 1.2 RATIO (0.9-2.4); AST(SGOT) 17 U/L (15-37); Alanine Aminotransfer ALT/SGPT 30 U/L (16-61); Alkaline Phosphatase 56 U/L (45-117); Anion Gap 7 (5-15); BUN 15 mg/dL (7-18); BUN/Creat Ratio 15.2 RATIO (10-20); Calcium,Total 9.6 mg/dL (8.5-10.1); Chloride 104 mmol/L (98-107); Creatinine, Serum 0.98 mg/dL (0.70-1.30); EST Glomerular Filtration Rate 80 mL/min (>60); Est Glom Filt Rate - Afr Amer 97 mL/min (>60); Globulin 3.4 g/dL (2.2-4.2); Glucose 69 mg/dL (74-106); Protein, Total 7.4 g/dL (6.4-8.2); Sodium Level 137 mmol/L (136-145)
== END ==
PROVIDERS: PCP Family Medicine Geriatric Medicine; Referring Provider Family Medicine Geriatric Medicine; Visit Provider Family Medicine Geriatric Medicine
DX: E55.9 Vitamin D deficiency, unspecified (principal); I10 Essential (primary) hypertension; M25.569 Pain in unspecified knee
CPT/HCPCS: 36415; 73564; 80053; 82306; 84443; 85025

== ENCOUNTER → 2020-08-29 08:21 | Outpatient (CLI) | payer MEDICARE, SELFPAY ==
[2020-08-29 09:43] LABS: PSA,Total- Diagnostic 0.11 ng/mL (0.0-4.0)
== END ==
PROVIDERS: PCP Family Medicine Geriatric Medicine; Referring Provider Urology; Visit Provider Urology
DX: C61 Malignant neoplasm of prostate (principal)
CPT/HCPCS: 36415; 84153

== ENCOUNTER 2020-12-18 12:10 | Outpatient (RCR) | payer MEDICARE, SELFPAY | END 2020-12-18 23:59 | LOC: IMMUN 12:10 | PROVIDERS: PCP Family Medicine Geriatric Medicine; Visit Provider Family Medicine | DX: Z23 Encounter for immunization (principal) | CPT/HCPCS: 0011A; 0012A ==

== ENCOUNTER → 2021-01-01 15:51 | Outpatient (CLI) | payer MEDICARE, SELFPAY ==
--- NOTE | 2021-01-01 15:54 | RAD_ITS ---
STUDY: X-RAY - LUMBAR SPINE REASON FOR EXAM: Male, 70 years old. Low back pain. TECHNIQUE: 3 view(s) of the lumbar spine were obtained. COMPARISON: None FINDINGS: Generalized osteopenia. Normal lumbar lordosis. There is no substantial scoliosis. There is a normal alignment of the vertebrae. Normal vertebral bodies and endplates. Diffuse facet sclerosis. Intervertebral disc space narrowing at multiple levels including T10-T11, T11-T12, L4-L5 and L5-S1 with osteophyte formation most marked at T10-11 and L4-5 and L5-S1. Vascular calcification. RAD/Lumbar Spine 2 or 3 Views IMPRESSION: Osteopenia with moderate thoracolumbar spondylosis most marked in the lower thoracic and lower lumbar regions. Electronically Signed: Elan Seymour MD at 12:27 EDT , Service support ,
== END ==
PROVIDERS: PCP Family Medicine Geriatric Medicine; Referring Provider Family Medicine Geriatric Medicine; Visit Provider Family Medicine Geriatric Medicine
DX: M54.5 Low back pain (principal)
CPT/HCPCS: 72100

== ENCOUNTER → 2021-02-13 10:55 | Outpatient (CLI) | payer MEDICARE, SELFPAY ==
[2021-02-13 12:29] LABS: Absolute Lymphocyte Count 1.65 X10^3/uL (0.83-4.51); Absolute Neutrophil Count 4.3 X10^3/uL (2.0-7.7); Basophil# 0.03 X10^3/uL; Basophil% 0.5 % (0-1); Eosinophil# 0.06 X10^3/uL; Eosinophils% 0.9 % (0-5); Hematocrit 45.6 % (40-54); Hemoglobin 15.4 g/dL (13.0-16.5); Lymphocyte # 1.65 X10^3/ul (0.83-4.51); Lymphocyte % 25.1 % (19-41); Mean Corp Hgb Conc 33.8 g/dL (32-36); Mean Corpuscular Hgb 30.3 pg (27.0-32.0); Mean Corpuscular Volume 89.8 fL (80-94); Mean Platelet Vol. 9.7 fl (6.2-12.0); Monocyte# 0.49 X10^3/uL; Monocyte% 7.5 % (0-10); NRBC Flagged by Analyzer 0 % (0-5); Neutrophil # 4.32 X10^3/uL (2.7-7.7); Neutrophil % 65.7 % (47-70); Platelet Count 233 K/mm3 (150-450); RBC Distribution Width CV 12.7 % (11.6-14.6); RBC Distribution Width SD 41.8 fl (35.1-43.9); Red Blood Count 5.08 M/mm3 (4.6-6.2); White Blood Count 6.6 K/mm3 (4.4-11.0)
[2021-02-13 12:51] LABS: ALB/GLOB Ratio 1.2 RATIO (0.9-2.4); AST(SGOT) 17 U/L (15-37); Alanine Aminotransfer ALT/SGPT 29 U/L (16-61); Albumin, Serum 3.9 g/dL (3.2-5.0); Alkaline Phosphatase 66 U/L (45-117); Anion Gap 4 (5-15); BUN 21 mg/dL (7-18); BUN/Creat Ratio 24.9 RATIO (10-20); Calcium,Total 9.5 mg/dL (8.5-10.1); Chloride 101 mmol/L (98-107); Creatinine, Serum 0.84 mg/dL (0.70-1.30); EST Glomerular Filtration Rate 95 mL/min (>60); Est Glom Filt Rate - Afr Amer 115 mL/min (>60); Globulin 3.2 g/dL (2.2-4.2); Glucose 93 mg/dL (74-106); Potassium 4.4 mmol/L (3.5-5.1); Protein, Total 7.1 g/dL (6.4-8.2); Sodium Level 136 mmol/L (136-145); Thyroid Stim Hormone (TSH) 1.47 uIU/mL (0.358-3.74)
== END ==
PROVIDERS: PCP Family Medicine Geriatric Medicine; Visit Provider Family Medicine Geriatric Medicine
DX: E55.9 Vitamin D deficiency, unspecified (principal); I10 Essential (primary) hypertension
CPT/HCPCS: 36415; 80053; 82306; 84403; 84443; 85025

== ENCOUNTER → 2021-02-27 10:31 | Outpatient (CLI) | payer MEDICARE, SELFPAY ==
[2021-02-27 11:35] LABS: PSA,Total- Diagnostic 0.14 ng/mL (0.0-4.0)
== END ==
PROVIDERS: PCP Family Medicine Geriatric Medicine; Referring Provider Urology; Visit Provider Urology
DX: C61 Malignant neoplasm of prostate (principal)
CPT/HCPCS: 36415; 84153

== ENCOUNTER → 2021-07-02 16:39 | Outpatient (CLI) | payer MEDICARE, SELFPAY ==
--- NOTE | 2021-07-02 16:56 | RAD_ITS ---
STUDY: X-RAY - PELVIS AND LEFT HIP REASON FOR EXAM: Male, 71 years old. HIP PAIN TECHNIQUE: 4 views of the pelvis and hip. COMPARISON: None. FINDINGS: There is a non-specific bowel gas pattern. Normal visualized soft tissue structures. There is diffuse demineralization of the osseous structures. There is narrowing with cortical sclerosis and osteophyte formation of the sacroiliac joint consistent with degenerative osteoarthritic changes. Normal bilateral superior and inferior pubic rami. Normal pubic symphysis. Normal bilateral ischial tuberosities. Replaced left hip joint demonstrates anatomic alignment, no plain film evidence of hardware complication. Replaced right hip joint also demonstrates anatomic alignment and is free of complication RAD/HIP, UNI W/ Pelvis 2-3 Views IMPRESSION: Degenerative changes, no acute findings Bilateral hip replacements demonstrate anatomic alignment. Electronically Signed: Sergio Stern MD at 12:51 EDT , Service support ,
== END ==
PROVIDERS: PCP Family Medicine Geriatric Medicine; Referring Provider Family Medicine Geriatric Medicine; Visit Provider Family Medicine Geriatric Medicine
DX: M25.559 Pain in unspecified hip (principal)
CPT/HCPCS: 73502

== ENCOUNTER → 2021-08-14 10:33 | Outpatient (CLI) | payer MEDICARE, SELFPAY ==
[2021-08-14 12:40] LABS: Absolute Lymphocyte Count 1.56 X10^3/uL (0.83-4.51); Absolute Neutrophil Count 4.2 X10^3/uL (2.0-7.7); Basophil# 0.03 X10^3/uL; Basophil% 0.5 % (0-1); Eosinophil# 0.11 X10^3/uL; Eosinophils% 1.8 % (0-5); Hematocrit 43.2 % (40-54); Lymphocyte # 1.56 X10^3/ul (0.83-4.51); Lymphocyte % 24.9 % (19-41); Mean Corp Hgb Conc 34.7 g/dL (32-36); Mean Corpuscular Hgb 30.6 pg (27.0-32.0); Mean Corpuscular Volume 88.2 fL (80-94); Mean Platelet Vol. 9.8 fl (6.2-12.0); Monocyte% 6.4 % (0-10); NRBC Flagged by Analyzer 0 % (0-5); Neutrophil # 4.15 X10^3/uL (2.7-7.7); Neutrophil % 66.1 % (47-70); Platelet Count 219 K/mm3 (150-450); RBC Distribution Width CV 12.8 % (11.6-14.6); RBC Distribution Width SD 41.5 fl (35.1-43.9); White Blood Count 6.3 K/mm3 (4.4-11.0)
[2021-08-14 12:52] LABS: Vitamin D,25 Hydroxy 23.1 ng/mL
[2021-08-14 13:07] LABS: AST(SGOT) 18 U/L (15-37); Alanine Aminotransfer ALT/SGPT 23 U/L (16-61); Albumin, Serum 3.6 g/dL (3.2-5.0); Alkaline Phosphatase 62 U/L (45-117); Anion Gap 9 (5-15); BUN 11 mg/dL (7-18); BUN/Creat Ratio 11.7 RATIO (10-20); Calcium,Total 9.2 mg/dL (8.5-10.1); Chloride 101 mmol/L (98-107); Creatinine, Serum 0.94 mg/dL (0.70-1.30); EST Glomerular Filtration Rate 84 mL/min (>60); Est Glom Filt Rate - Afr Amer 102 mL/min (>60); Globulin 3.5 g/dL (2.2-4.2); Glucose 94 mg/dL (74-106); Potassium 4.1 mmol/L (3.5-5.1); Protein, Total 7.1 g/dL (6.4-8.2); Sodium Level 136 mmol/L (136-145); Thyroid Stim Hormone (TSH) 1.29 uIU/mL (0.358-3.74)
== END ==
PROVIDERS: PCP Family Medicine Geriatric Medicine; Visit Provider Family Medicine Geriatric Medicine
DX: E55.9 Vitamin D deficiency, unspecified (principal); F52.8 Other sexual dysfunction not due to a substance or known physiological condition; I10 Essential (primary) hypertension
CPT/HCPCS: 36415; 80053; 82306; 84403; 84443; 85025

== ENCOUNTER 2021-12-28 12:41 | Outpatient (CLI) | payer MEDICARE, SELFPAY ==
--- NOTE | 2021-12-28 12:52 | RAD_ITS ---
STUDY: X-RAY - LUMBAR SPINE REASON FOR EXAM: Male, 71 years old SCIATIC NERVE PAIN ON/OFF PAST YEAR, RIGHT LEG PAIN LOW BACK PAIN TECHNIQUE: XR Spine Lumbar 2 or 3 Views COMPARISON: 3.15 FINDINGS: Normal lumbar lordosis. There is no substantial scoliosis. There is a Grade 1 anterolisthesis of L5 on S1. Distance measures 15 mm. Vacuum disc phenomenon at L4-5. There is multilevel endplate spondylosis of the lumbar vertebrae. There is multi-level degenerative disc disease with multi-level disc space narrowing. There are atherosclerotic vascular calcifications. The soft tissue structures are unremarkable. RAD/Lumbar Spine 2 or 3 Views IMPRESSION: Degenerative changes of the spine, as detailed above. Patient''s description of pain suggests a recommendation of MRI of the lumbar spine to better evaluate the cause of pain. Electronically Signed: Arian Castro MD at 16:35 EST ,
== END 2021-12-28 23:59 | disposition home or self-care (01) ==
LOC: RAD 12:42
PROVIDERS: PCP Family Medicine Geriatric Medicine; Referring Provider Family Medicine Geriatric Medicine; Visit Provider Family Medicine Geriatric Medicine
DX: M54.50 Low back pain, unspecified (principal)
CPT/HCPCS: 72100

== ENCOUNTER 2022-01-22 10:00 | Outpatient (RCR) | payer MEDICARE, SELFPAY ==
--- NOTE | 2022-01-08 13:47 | HP.PTEVAL ---
Patient's Visit Information CAROL REED is a 71 year old M referred to Physical Therapy by Dr. Jorge Roca MD with a diagnosis of Sciatica. Date of Evaluation: 01/08/22 Physical Therapist: Arian Acharya, PT, ATC - Visit Plan Frequency: 2x /Week Duration: 2 Weeks Plan: REIL, postural education, core strengthening, and HEP - Subjective Pt reports he has had a chronic Hx of LBP for several years. Pt reports he has had xrays which revealed moderate OA. Pt reports he gets R LE tingling and numbness on occasion that extends down the anterior thigh to his knee region. Pt reports he has been doing stretches he was issued in the past, but they don't seem to help any more with the exception of L side glides. Pt reports Occasional sleep difficulty at this time secondary to pain. Pt reports his pain is intermittent in nature, but notes there is not one trigger that specifically causes him pain. Pt notes he has had injections and pain meds before which were all temporary fixes. 4/10 pain at rest, 8/10 pain at its worst. - Pain LBP Pain Intensity (Out of 10): 4 Pain Intensity Range: 8 - Objective Neuro: B LE sensation is WNL to light touch. b patellar reflex= 2/3. MMT: B LE's are grossly rated at 4/5 throughout. ROM: Pt is moderately limited with L/S extension. all other motions are WFL. Repeated movements: RFIL 10x peripheralized sx's into R LE. REIL 10x2 elimanated sx's into R LE - Balance/Special Test Scores Lower Extremity Functional Score: 62 - Goals Goal 1:: I with HEP Goal Time Frame: 2-4 Weeks Goal 2:: Decrease LBP x 50% to aid with sleep Goal Time Frame: 2-4 Weeks Goal 3:: Decrease the frequency and intensity of R LE radiculopathy x 50% to aid with ambulation Goal Time Frame: 2-4 Weeks - Rehabilitation Potential Physical Therapy Diagnosis: Pt has R LE radiculopathy, LE stregnth, and decreased L/SROM secondary to L/S disc derrangement Rehabilitation Potential: Good - Anticipated Interventions Patient/Client Instruction: Educate patient on: Condition, Plan of Care For the Purpose of:: To improve self management Therapeutic Exercise to Include: Strength training, Postural training, Flexibilty training, Active ROM, Dynamic Lumbar Stabilization For the Purpose of:: To decrease pain, To increase ROM, To improve muscle performance and motor function Thermo therapy (hot pack): Yes For the Purpose of:: To decrease pain Thank you for the opportunity to evaluate your patient. For Medicare and Medicare HMO plans, please review the plan of care and approve it. It will need to be FAXED BACK to us at [phone] for Medicare purposes. For Medicare only, by signing this I certify the plan of care. Please let me know if there are questions or concerns regarding this plan of care. Physician Signature: Date:
--- NOTE | 2022-04-03 12:57 | HP.PT.NRP ---
CAROL REED was seen in my office for initial evaluation on 01/08/22. The following Plan of Care was established for this patient: Initial Frequency: 2x /Week Initial Duration: 2 Weeks Patient/Client Instruction: Educate patient on: Condition, Plan of Care For the Purpose of:: To improve self management Therapeutic Exercise to Include: Strength training, Postural training, Flexibilty training, Active ROM, Dynamic Lumbar Stabilization For the Purpose of:: To decrease pain, To increase ROM, To improve muscle performance and motor function Thermo therapy (hot pack): Yes For the Purpose of:: To decrease pain This patient was last seen in our office . Pertinent comments regarding their Physical therapy will appear below: Pt was treated for 5 PT visits for low back pain through the date of 01/22/22. Pt has not returned through this date and is discontinued at this time. At this point I will be discontinuing this patient from physical therapy. I would be happy to see this patient again in the future if found appropriate by the physician. Thank you! Arian Acharya, PT, ATC Balance/Gait/Functional tests - Balance/Special Test Scores Lower Extremity Functional Score: 62
== END 2022-01-22 19:00 | disposition home or self-care (01) ==
LOC: PT 10:00
PROVIDERS: PCP Family Medicine Geriatric Medicine; Referring Provider Family Medicine Geriatric Medicine; Visit Provider Family Medicine Geriatric Medicine
DX: M54.31 Sciatica, right side (principal)
CPT/HCPCS: 97110; 97161

== ENCOUNTER → 2022-02-08 | Outpatient (CLI) | payer MEDICARE, SELFPAY ==
--- NOTE | 2022-02-08 14:35 | NEURO ---
NCS and/or EMG Patient Report Ordering Doctor: Jorge Roca Chi DATE OF SERVICE: 02/08/22 Indication: Intermittent right lower extremity radicular pain. Discomfort starts in the low right back and radiates to the buttock and thigh. No fixed weakness or sensory disturbance in the affected limb. History of prior spinal cord injury as well as bilateral hip replacements. Evaluate for lumbar radiculopathy. Findings: Nerve conduction studies were performed in the right and left lower extremities. The right peroneal motor study recording the extensor digitorum brevis showed a normal amplitude, normal distal latency and normal conduction velocity. No conduction block or focal slowing was present across the fibular neck. The right tibial motor study recording the abductor hallucis brevis showed a normal amplitude, normal distal latency and normal conduction velocity. Right sural sensory response was absent. Right superficial peroneal sensory response showed a normal amplitude and conduction velocity. Right medial plantar sensory response showed a normal amplitude and conduction velocity. The left peroneal motor study recording the extensor digitorum brevis showed a normal amplitude, normal distal latency and normal conduction velocity. Focal slowing was present across the fibular neck. The left tibial motor study recording the abductor hallucis brevis showed a normal amplitude, normal distal latency and normal conduction velocity. Left sural sensory response showed a normal amplitude and mildly slowed conduction velocity. Left superficial peroneal sensory response showed a normal amplitude and mildly slowed conduction velocity. Left medial plantar sensory response showed a normal amplitude and conduction velocity. Needle EMG of the right lower extremity and lumbar paraspinal muscles was performed. No denervation was present in any muscle. All motor unit morphology, activation and recruitment patterns were normal. Needle EMG of the left lower extremity was not performed given the paucity of findings in the symptomatic limb. Impression: There is no electrophysiologic evidence of lumbosacral radiculopathy in the right lower extremity. Please note: the electrodiagnosis of radiculopathy is made on the basis of excluding peripheral nerve lesions on nerve conduction studies and the needle EMG demonstrating denervation and/or reinnervation in the distribution of one or more nerve roots (i.e., acute and/or chronic axonal loss). Thus, electrodiagnostic studies are insensitive in detecting radiculopathy in the absence of axonal loss (e.g., in the setting of compression resulting in intermittent ischemia or mechanical deformation; or demyelination without axonal loss). Thus, clinical and/or radiographic correlation is required in the interpretation of this negative electrodiagnostic study for radiculopathy. Several incidental findings were noted during the examination. There is mild focal slowing of the left peroneal nerve across the fibular neck. The absent right sural sensory response was likely technical in nature as there is no subjective sensory loss on examination. Rodolfo Reinoso D.O. Multi Select Codes Neurology Neurology Interp Codes: 07375-96 Musc test done w/n test comp (interp) and 08725-81 Nr cndj test 9-10 studies (interp)
== END | disposition home or self-care (01) ==
PROVIDERS: PCP Family Medicine Geriatric Medicine; Referring Provider Family Medicine Geriatric Medicine; Visit Provider Family Medicine Geriatric Medicine
DX: M54.30 Sciatica, unspecified side (principal); R20.0 Anesthesia of skin
CPT/HCPCS: 95886; 95911

== ENCOUNTER → 2022-02-19 | Outpatient (CLI) | payer MEDICARE, SELFPAY ==
[2022-02-19 12:24] LABS: Absolute Lymphocyte Count 1.56 X10^3/uL (0.83-4.51); Absolute Neutrophil Count 3.2 X10^3/uL (2.0-7.7); Basophil# 0.03 X10^3/uL; Basophil% 0.6 % (0-1); Eosinophil# 0.18 X10^3/uL; Eosinophils% 3.4 % (0-5); Hematocrit 43.5 % (40-54); Hemoglobin 15.1 g/dL (13.0-16.5); Lymphocyte # 1.56 X10^3/ul (0.83-4.51); Lymphocyte % 29.3 % (19-41); Mean Corp Hgb Conc 34.7 g/dL (32-36); Mean Corpuscular Hgb 30.8 pg (27.0-32.0); Mean Corpuscular Volume 88.8 fL (80-94); Mean Platelet Vol. 10.1 fl (6.2-12.0); Monocyte# 0.31 X10^3/uL; Monocyte% 5.8 % (0-10); NRBC Flagged by Analyzer 0 % (0-5); Neutrophil # 3.24 X10^3/uL (2.7-7.7); Neutrophil % 60.7 % (47-70); Platelet Count 208 K/mm3 (150-450); RBC Distribution Width CV 12.5 % (11.6-14.6); RBC Distribution Width SD 40.8 fl (35.1-43.9); White Blood Count 5.3 K/mm3 (4.4-11.0)
[2022-02-19 12:48] LABS: Vitamin D,25 Hydroxy 19.2 ng/mL
[2022-02-19 12:49] LABS: ALB/GLOB Ratio 1.2 RATIO (0.9-2.4); AST(SGOT) 17 U/L (15-37); Alanine Aminotransfer ALT/SGPT 31 U/L (16-61); Albumin, Serum 3.8 g/dL (3.2-5.0); Alkaline Phosphatase 57 U/L (45-117); Anion Gap 6 (5-15); BUN 14 mg/dL (7-18); BUN/Creat Ratio 16.1 RATIO (10-20); Calcium,Total 9.3 mg/dL (8.5-10.1); Chloride 102 mmol/L (98-107); Creatinine, Serum 0.87 mg/dL (0.70-1.30); EST Glomerular Filtration Rate 92 mL/min (>60); Est Glom Filt Rate - Afr Amer 112 mL/min (>60); Globulin 3.3 g/dL (2.2-4.2); Glucose 96 mg/dL (74-106); PSA,Total - Annual Screen 0.12 ng/mL (0.00-4.00); Potassium 4.1 mmol/L (3.5-5.1); Protein, Total 7.1 g/dL (6.4-8.2); Sodium Level 137 mmol/L (136-145)
== END | disposition home or self-care (01) ==
LOC: POLAB3 11:25
PROVIDERS: PCP Family Medicine Geriatric Medicine; Visit Provider Family Medicine Geriatric Medicine
DX: E55.9 Vitamin D deficiency, unspecified (principal); F52.8 Other sexual dysfunction not due to a substance or known physiological condition; I10 Essential (primary) hypertension; Z12.5 Encounter for screening for malignant neoplasm of prostate
CPT/HCPCS: 36415; 80053; 82306; 84153; 84403; 84443; 85025; G0103

== ENCOUNTER 2022-08-22 09:45 | Outpatient (CLI) | payer MEDICARE, SELFPAY ==
[2022-08-22 12:33] LABS: Absolute Lymphocyte Count 1.69 X10^3/uL (0.83-4.51); Absolute Neutrophil Count 3.4 X10^3/uL (2.0-7.7); Basophil# 0.03 X10^3/uL; Basophil% 0.5 % (0-1); Eosinophil# 0.15 X10^3/uL; Eosinophils% 2.7 % (0-5); Hematocrit 46.3 % (40-54); Hemoglobin 16.5 g/dL (13.0-16.5); Lymphocyte # 1.69 X10^3/ul (0.83-4.51); Lymphocyte % 30.4 % (19-41); Mean Corp Hgb Conc 35.6 g/dL (32-36); Mean Corpuscular Hgb 31.9 pg (27.0-32.0); Mean Corpuscular Volume 89.6 fL (80-94); Mean Platelet Vol. 9.8 fl (6.2-12.0); Monocyte# 0.29 X10^3/uL; Monocyte% 5.2 % (0-10); NRBC Flagged by Analyzer 0 % (0-5); Neutrophil # 3.39 X10^3/uL (2.7-7.7); Platelet Count 214 K/mm3 (150-450); RBC Distribution Width CV 12.6 % (11.6-14.6); RBC Distribution Width SD 41.2 fl (35.1-43.9); Red Blood Count 5.17 M/mm3 (4.6-6.2); White Blood Count 5.6 K/mm3 (4.4-11.0)
[2022-08-22 12:56] LABS: ALB/GLOB Ratio 1.2 RATIO (0.9-2.4); AST(SGOT) 18 U/L (15-37); Alanine Aminotransfer ALT/SGPT 35 U/L (16-61); Albumin, Serum 4.2 g/dL (3.2-5.0); Alkaline Phosphatase 62 U/L (45-117); Anion Gap 8 (5-15); BUN 13 mg/dL (7-18); BUN/Creat Ratio 13.5 RATIO (10-20); Calcium,Total 9.8 mg/dL (8.5-10.1); Chloride 102 mmol/L (98-107); Creatinine, Serum 0.96 mg/dL (0.70-1.30); EST Glomerular Filtration Rate 82 mL/min (>60); Est Glom Filt Rate - Afr Amer 99 mL/min (>60); Globulin 3.4 g/dL (2.2-4.2); Glucose 127 mg/dL (74-106); Potassium 4.1 mmol/L (3.5-5.1); Protein, Total 7.6 g/dL (6.4-8.2); Sodium Level 138 mmol/L (136-145); Thyroid Stim Hormone (TSH) 1.49 uIU/mL (0.358-3.74)
== END 2022-08-22 23:59 | disposition home or self-care (01) ==
LOC: POLAB3 09:45
PROVIDERS: PCP Family Medicine Geriatric Medicine; Visit Provider Family Medicine Geriatric Medicine
DX: I10 Essential (primary) hypertension (principal); E55.9 Vitamin D deficiency, unspecified; F52.8 Other sexual dysfunction not due to a substance or known physiological condition
CPT/HCPCS: 36415; 80053; 82306; 84403; 84443; 85025

== ENCOUNTER → 2022-09-18 | Outpatient (CLI) | payer MEDICARE, SELFPAY | END | disposition home or self-care (01) | LOC: PSN 11:55 | PROVIDERS: PCP Family Medicine Geriatric Medicine; Visit Provider Family Medicine Geriatric Medicine | DX: R68.83 Chills (without fever) (principal) | CPT/HCPCS: 87635; 87804; 87807; C9803; U0003; U0005 ==

== ENCOUNTER → 2022-12-02 | Outpatient (CLI) | payer MEDICARE, SELFPAY ==
--- NOTE | 2022-12-02 16:36 | RAD_ITS ---
STUDY: X-RAY - LUMBAR SPINE REASON FOR EXAM: Male, 72 years old. SACROILITIS TECHNIQUE: XR Spine Lumbar 2 or 3 Views COMPARISON: None FINDINGS: Normal lumbar lordosis. There is no substantial scoliosis. There is a normal alignment of the vertebrae. There is multilevel endplate spondylosis of the lumbar vertebrae. There is multi-level degenerative disc disease with multi-level disc space narrowing. There are atherosclerotic vascular calcifications. The soft tissue structures are unremarkable. RAD/Lumbar Spine 2 or 3 Views IMPRESSION: Degenerative changes of the spine, as detailed above. Electronically Signed: Arian Castro MD at 20:24 EST ,
--- NOTE | 2022-12-02 16:36 | RAD_ITS ---
EXAM: XR SACRUM AND COCCYX, 2 OR MORE VIEWS CLINICAL INDICATION: SACROLITIS TECHNIQUE: Frontal and lateral views of the sacrum and coccyx. This report was created using [employer] report generation technology. COMPARISON: None. FINDINGS: SACRUM/COCCYX: Unremarkable. No displaced fracture. No destructive or sclerotic lesions. Note that overlapping bowel shadows may however obscure fine detail in the frontal view. Sacroiliac joints are unremarkable. SOFT TISSUES: Unremarkable. No soft tissue swelling or gas. OTHER FINDINGS: Total bilateral hip arthroplasty. RAD/Sacrum-Coccyx min 2 Views IMPRESSION: No acute findings in the sacrum or coccyx. Electronically Signed: Arian Castro MD at 20:29 EST ,
--- NOTE | 2022-12-02 16:40 | RAD_ITS ---
STUDY: XR Pelvis 1 or 2 Views 12/02/2022 4:48 PM REASON FOR EXAM: Male, 72 years old. SACROILITIS Pain TECHNIQUE: XR Pelvis 1 or 2 Views COMPARISON: None FINDINGS: There is a non-specific bowel gas pattern. There are atherosclerotic vascular calcifications of the pelvic arteries.There are degenerative changes of the lumbar spine. Normal bilateral iliac wings, sacroiliac joints and visualized sacrum. Normal visualized bilateral superior and inferior pubic rami. Normal pubic symphysis. Normal ischial tuberosities. Total right and left hip arthroplasty. Normal right acetabulum. Normal right hip joint. Normal left acetabulum. Normal left hip joint. RAD/Pelvis 1 or 2 Views IMPRESSION: No acute findings. Electronically Signed: Arian Castro MD at 18:31 EST ,
== END | disposition home or self-care (01) ==
LOC: RAD 16:33
PROVIDERS: PCP Family Medicine Geriatric Medicine; Referring Provider Anesthesiology Pain Medicine; Visit Provider Anesthesiology Pain Medicine
DX: M51.36 Other intervertebral disc degeneration, lumbar region (principal); M46.1 Sacroiliitis, not elsewhere classified
CPT/HCPCS: 72100; 72170; 72220

== ENCOUNTER → 2023-02-06 | Outpatient (CLI) | payer MEDICARE, SELFPAY ==
--- NOTE | 2023-02-06 16:08 | MRI_ITS ---
INDICATION: RADICULOPATHY, lbp , rt hip pain EXAMINATION: MRI - MR Spine Lumbar W/O Contrast TECHNIQUE: Multiplanar and multisequence MR images of the lumbar spine. IV Contrast Dosage and Agent: None. COMPARISON: 12/02/2022 x-rays. No prior MRI or CT for comparison. FINDINGS: Spondylosis, degenerative disc disease and facet arthrosis, worse at L4-L5 and L5-S1. No acute abnormal bone marrow or soft tissue signal. No fracture or subluxation. L1-L2: Unremarkable. L2-L3: Unremarkable. L3-L4: Circumferential disc bulge, most prominent posteriorly centrally and on the left. Moderate central canal stenosis secondary to the disc protrusion and facet arthrosis with ligamentum flavum hypertrophy. Mild right and moderate left neural foraminal narrowing. L4-L5: Circumferential disc bulge. Mild central canal stenosis. Moderate to severe right and [id number] left neural foraminal narrowing. L5-S1: Circumferential disc bulge. No significant central canal stenosis. Severe right and moderate left neural foraminal narrowing. CONUS MEDULLARIS/CAUDA EQUINA: Unremarkable. SOFT TISSUES: Unremarkable. MRI/Spine Lumbar (Routine) IMPRESSION: Degenerative changes with varying degrees of central canal stenosis and significant neural foraminal narrowing as detailed above. Electronically Signed: Carlos Wallace DO at 3:50 EDT ,
== END | disposition home or self-care (01) ==
LOC: MRI 15:57
PROVIDERS: PCP Family Medicine Geriatric Medicine; Referring Provider Anesthesiology Pain Medicine; Visit Provider Anesthesiology Pain Medicine
DX: M54.16 Radiculopathy, lumbar region (principal)
CPT/HCPCS: 72148

== ENCOUNTER → 2023-02-20 | Outpatient (CLI) | payer MEDICARE, SELFPAY ==
[2023-02-20 11:23] LABS: Absolute Lymphocyte Count 1.77 X10^3/uL (0.83-4.51); Absolute Neutrophil Count 3.6 X10^3/uL (2.0-7.7); Basophil# 0.03 X10^3/uL; Basophil% 0.5 % (0-1); Eosinophil# 0.13 X10^3/uL; Eosinophils% 2.2 % (0-5); Hematocrit 47.4 % (40-54); Hemoglobin 16.3 g/dL (13.0-16.5); Lymphocyte # 1.77 X10^3/ul (0.83-4.51); Lymphocyte % 30.4 % (19-41); Mean Corp Hgb Conc 34.4 g/dL (32-36); Mean Corpuscular Hgb 31.3 pg (27.0-32.0); Mean Corpuscular Volume 91.2 fL (80-94); Mean Platelet Vol. 10.7 fl (6.2-12.0); Monocyte% 5.2 % (0-10); NRBC Flagged by Analyzer 0 % (0-5); Neutrophil # 3.58 X10^3/uL (2.7-7.7); Neutrophil % 61.5 % (47-70); Platelet Count 196 K/mm3 (150-450); RBC Distribution Width CV 12.8 % (11.6-14.6); RBC Distribution Width SD 42.7 fl (35.1-43.9); White Blood Count 5.8 K/mm3 (4.4-11.0)
[2023-02-20 11:40] LABS: Vitamin D,25 Hydroxy 31.9 ng/mL
[2023-02-20 11:47] LABS: ALB/GLOB Ratio 1.3 RATIO (0.9-2.4); AST(SGOT) 21 U/L (15-37); Alanine Aminotransfer ALT/SGPT 32 U/L (16-61); Albumin, Serum 4.2 g/dL (3.2-5.0); Alkaline Phosphatase 60 U/L (45-117); Anion Gap 9 (5-15); BUN 12 mg/dL (7-18); Calcium,Total 9.6 mg/dL (8.5-10.1); Chloride 103 mmol/L (98-107); Creatinine, Serum 0.86 mg/dL (0.70-1.30); EST Glomerular Filtration Rate 93 mL/min (>60); Est Glom Filt Rate - Afr Amer 113 mL/min (>60); Globulin 3.2 g/dL (2.2-4.2); Glucose 90 mg/dL (74-106); PSA,Total - Annual Screen 0.15 ng/mL (0.00-4.00); Potassium 4.2 mmol/L (3.5-5.1); Protein, Total 7.4 g/dL (6.4-8.2); Sodium Level 140 mmol/L (136-145); Thyroid Stim Hormone (TSH) 1.51 uIU/mL (0.358-3.74)
== END | disposition home or self-care (01) ==
LOC: LAB 10:17
PROVIDERS: PCP Family Medicine Geriatric Medicine; Referring Provider Family Medicine Geriatric Medicine; Visit Provider Family Medicine Geriatric Medicine
DX: I10 Essential (primary) hypertension (principal); E55.9 Vitamin D deficiency, unspecified; Z12.5 Encounter for screening for malignant neoplasm of prostate
CPT/HCPCS: 36415; 80053; 82306; 84153; 84443; 85025; G0103

== ENCOUNTER → 2023-08-19 | Outpatient (CLI) | payer MEDICARE, SELFPAY ==
[2023-08-19 11:18] LABS: Absolute Neutrophil Count 2.8 X10^3/uL (2.0-7.7); Basophil# 0.03 X10^3/uL; Basophil% 0.6 % (0-1); Eosinophil# 0.14 X10^3/uL; Eosinophils% 2.7 % (0-5); Hematocrit 44.7 % (40-54); Hemoglobin 15.6 g/dL (13.0-16.5); Mean Corp Hgb Conc 34.9 g/dL (32-36); Mean Corpuscular Hgb 31.3 pg (27.0-32.0); Mean Corpuscular Volume 89.6 fL (80-94); Mean Platelet Vol. 9.6 fl (6.2-12.0); Monocyte# 0.33 X10^3/uL; Monocyte% 6.4 % (0-10); NRBC Flagged by Analyzer 0 % (0-5); Neutrophil # 2.83 X10^3/uL (2.7-7.7); Neutrophil % 55.1 % (47-70); Platelet Count 191 K/mm3 (150-450); RBC Distribution Width CV 12.9 % (11.6-14.6); RBC Distribution Width SD 42.2 fl (35.1-43.9); Red Blood Count 4.99 M/mm3 (4.6-6.2); White Blood Count 5.1 K/mm3 (4.4-11.0)
--- NOTE | 2023-08-19 12:25 | RAD_ITS ---
STUDY: X-RAY - LEFT SHOULDER REASON FOR EXAM: Male, 73 years old. Pain. TECHNIQUE: 4 view(s) of the shoulder. COMPARISON: None. FINDINGS: Osteopenia. Severe arthrosis of the glenohumeral joint with marked osteophyte formation. Mild arthrosis of the AC joint. Normal acromion. Sclerosis and cystic changes of the humeral head. Normal soft tissues. Normal visualized pulmonary apex. RAD/Shoulder min 2 Views IMPRESSION: Osteopenia with severe arthrosis of the glenohumeral joint and mild arthrosis of the AC joint. No acute abnormality or erosive changes. Electronically Signed: Elan Seymour MD at 12:39 EDT ,
[2023-08-19 12:57] LABS: Vitamin D,25 Hydroxy 28.8 ng/mL
[2023-08-19 13:05] LABS: ALB/GLOB Ratio 1.2 RATIO (0.9-2.4); AST(SGOT) 17 U/L (15-37); Alanine Aminotransfer ALT/SGPT 27 U/L (16-61); Albumin, Serum 3.7 g/dL (3.2-5.0); Alkaline Phosphatase 62 U/L (45-117); Anion Gap 3 (5-15); BUN 15 mg/dL (7-18); Calcium,Total 9.1 mg/dL (8.5-10.1); Chloride 106 mmol/L (98-107); Creatinine, Serum 0.83 mg/dL (0.70-1.30); EST Glomerular Filtration Rate 96 mL/min (>60); Est Glom Filt Rate - Afr Amer 117 mL/min (>60); Globulin 3.2 g/dL (2.2-4.2); Glucose 80 mg/dL (74-106); Potassium 3.8 mmol/L (3.5-5.1); Protein, Total 6.9 g/dL (6.4-8.2); Sodium Level 137 mmol/L (136-145); Thyroid Stim Hormone (TSH) 1.15 uIU/mL (0.358-3.74)
== END | disposition home or self-care (01) ==
PROVIDERS: PCP Family Medicine Geriatric Medicine; Visit Provider Family Medicine Geriatric Medicine
DX: I10 Essential (primary) hypertension (principal); E55.9 Vitamin D deficiency, unspecified
CPT/HCPCS: 36415; 73030; 80053; 82306; 84443; 85025

== ENCOUNTER → 2024-02-06 | Outpatient (CLI) | payer MEDICARE, SELFPAY ==
--- NOTE | 2024-02-06 | MASS_PTH ---
PATIENT: CAROL REED [facility] U[facility][id number] AGE/SX: 73/M ROOM: RE02/06/[address]: Dr. Clint Thomas MD : 1950 BED: DIS: 02/06/2024 SPEC #: [id number] RECD: 02/06/24 13:24 STATUS: SURI CORTEZTiff #: [id number] HANNY: 02/06/24 00:[address]: Clint Thomas DEPT: SURGICAL PATHOLOGY RECD BY: Denton Mehta ENTERED: 02/06/24 13:24 SP TYPE: Mass OTHR DR: Dr. Jorge Roca MD Tissues: Back, NOS Procedures: Surgery Specimen Level IV HEADER OPERATION: Excision of back mass PRE-OP DIAGNOSIS: Sebaceous cyst TISSUE SUBMITTED: Back mass MICROSCOPIC DIAGNOSIS Back mass, excision: Chronic inflammation and foreign body giant cell reaction. See comment. SJ/ 02/09/2024 COMMENT Findings may represent ruptured and inflamed epidermal inclusion cyst. Clinical correlation and appropriate follow up are necessary. MICROSCOPIC DESCRIPTION Slides are reviewed. GROSS DESCRIPTION Received in fixative is one container labeled with the patient's name and designated Back mass. The specimen consists of two pieces of yellow congested adipose tissue measuring in aggregate 1.5 x 1.2 x 0.5cm. The both pieces are bisected. The entire specimen is submitted in one cassette. CHALO/ 02/06/24 TC:5 CPT:19331
== END | disposition home or self-care (01) ==
LOC: LABSPEC 12:43
PROVIDERS: PCP Family Medicine Geriatric Medicine; Referring Provider Surgery; Visit Provider Surgery
DX: L72.3 Sebaceous cyst (principal)
CPT/HCPCS: 88305

== ENCOUNTER → 2024-02-18 | Outpatient (CLI) | payer MEDICARE, SELFPAY ==
--- NOTE | 2024-02-18 14:00 | RAD_ITS ---
STUDY: X-RAY - CERVICAL SPINE REASON FOR EXAM: Male, 73 years old. Cervical radiculopathy. TECHNIQUE: 3 view(s) of the cervical spine were obtained on 4 images. COMPARISON: None FINDINGS: Osteopenia. Normal anterior atlantoaxial articulation. Normal odontoid process. Normal cervical lordosis. Diffuse moderate uncovertebral and facet sclerosis. Normal vertebral alignment. Intervertebral disc space narrowing from C3-4 to C7-T1 with osteophytes. Normal soft tissues. RAD/Cerv Spine 2 or 3 Views IMPRESSION: Osteopenia with moderate diffuse cervical spondylosis as described. Electronically Signed: Elan Seymour MD at 15:01 EDT ,
== END | disposition home or self-care (01) ==
LOC: RAD 13:58
PROVIDERS: PCP Family Medicine Geriatric Medicine; Referring Provider Anesthesiology Pain Medicine; Visit Provider Anesthesiology Pain Medicine
DX: M54.12 Radiculopathy, cervical region (principal)
CPT/HCPCS: 72040

== ENCOUNTER → 2024-02-26 | Outpatient (CLI) | payer MEDICARE, SELFPAY ==
[2024-02-26 10:56] LABS: Absolute Lymphocyte Count 2.53 X10^3/uL (0.83-4.51); Absolute Neutrophil Count 4.2 X10^3/uL (2.0-7.7); Basophil# 0.04 X10^3/uL; Basophil% 0.5 % (0-1); Eosinophil# 0.15 X10^3/uL; Hematocrit 48.6 % (40-54); Hemoglobin 16.7 g/dL (13.0-16.5); Lymphocyte # 2.53 X10^3/ul (0.83-4.51); Lymphocyte % 34.1 % (19-41); Mean Corp Hgb Conc 34.4 g/dL (32-36); Mean Corpuscular Hgb 30.9 pg (27.0-32.0); Mean Corpuscular Volume 89.8 fL (80-94); Mean Platelet Vol. 9.5 fl (6.2-12.0); Monocyte% 6.7 % (0-10); NRBC Flagged by Analyzer 0 % (0-5); Neutrophil # 4.16 X10^3/uL (2.7-7.7); Neutrophil % 56.3 % (47-70); Platelet Count 217 K/mm3 (150-450); RBC Distribution Width CV 12.4 % (11.6-14.6); RBC Distribution Width SD 40.7 fl (35.1-43.9); Red Blood Count 5.41 M/mm3 (4.6-6.2); White Blood Count 7.4 K/mm3 (4.4-11.0)
[2024-02-26 11:29] LABS: Vitamin D,25 Hydroxy 28.1 ng/mL
[2024-02-26 11:42] LABS: ALB/GLOB Ratio 1.3 RATIO (0.9-2.4); AST(SGOT) 17 U/L (15-37); Alanine Aminotransfer ALT/SGPT 29 U/L (16-61); Albumin, Serum 4.1 g/dL (3.2-5.0); Alkaline Phosphatase 61 U/L (45-117); Anion Gap 3 (5-15); BUN 18 mg/dL (7-18); BUN/Creat Ratio 20.8 RATIO (10-20); Chloride 101 mmol/L (98-107); Cholesterol 277 mg/dL (200); Creatinine, Serum 0.87 mg/dL (0.70-1.30); EST Glomerular Filtration Rate 92 mL/min (>60); Est Glom Filt Rate - Afr Amer 111 mL/min (>60); Globulin 3.1 g/dL (2.2-4.2); Glucose 97 mg/dL (74-106); High Density Lipoprotein 65 mg/dL; Potassium 4.4 mmol/L (3.5-5.1); Protein, Total 7.2 g/dL (6.4-8.2); Sodium Level 135 mmol/L (136-145); Thyroid Stim Hormone (TSH) 1.72 uIU/mL (0.358-3.74); Triglycerides 211 mg/dL; Very Low Density Lipoprotein 42 mg/dL (5-40)
== END | disposition home or self-care (01) ==
PROVIDERS: PCP Family Medicine Geriatric Medicine; Referring Provider Family Medicine Geriatric Medicine; Visit Provider Family Medicine Geriatric Medicine
DX: I10 Essential (primary) hypertension (principal); E78.5 Hyperlipidemia, unspecified; E55.9 Vitamin D deficiency, unspecified
CPT/HCPCS: 36415; 80053; 80061; 82306; 84443; 85025

== ENCOUNTER → 2024-05-06 | Outpatient (CLI) | payer MEDICARE, SELFPAY ==
--- NOTE | 2024-05-06 15:27 | RAD_ITS ---
STUDY: X-RAY - LUMBAR SPINE REASON FOR EXAM: Male, 74 years old. LOW BACK PAIN TECHNIQUE: 5 view(s) of the lumbar spine were obtained. COMPARISON: 12/02/2022 FINDINGS: Normal lumbar lordosis. Mild dextroscoliosis centered at L2. There is a normal alignment of the vertebrae. There is multilevel endplate spondylosis of the lumbar vertebrae. There is multi-level degenerative disc disease with multi-level disc space narrowing. There is multilevel facet hypertrophy. The soft tissue structures are unremarkable. RAD/L/S Spine Min 4 Views IMPRESSION: Mild dextroscoliosis with diffuse degenerative disc disease. MRI may be useful. Electronically Signed: Ruben Echols MD at 9:18 EDT ,
--- NOTE | 2024-05-06 15:27 | RAD_ITS ---
STUDY: X-RAY - LEFT HAND REASON FOR EXAM: Male, 74 years old. BILATERAL HAND PAIN TECHNIQUE: 3 view(s) of the hand. COMPARISON: None. FINDINGS: There is joint space narrowing of the radiocarpal articulation consistent with degenerative arthrosis. There is a negative ulnar variant of the distal radioulnar articulation. Normal visualized carpal bones. Normal carpal articulations Normal carpometacarpal articulation of the thumb. Normal second through fifth carpometacarpal joints. Normal metacarpi. Normal metacarpophalangeal joint of the thumb. Normal interphalangeal joint of the thumb. Normal proximal and distal phalanges of the thumb. Normal metacarpophalangeal joints of the second through fifth fingers. There is diffuse articular joint space narrowing of the proximal and distal interphalangeal joints of the second through fifth fingers, but without erosive changes or periarticular soft tissue swelling. Normal phalanges of the second through fifth fingers. The soft tissue structures are unremarkable. RAD/Hand Min 3 Views IMPRESSION: Degenerative joint disease of the hand and wrist, as described above. Electronically Signed: Ruben Echols MD at 9:24 EDT ,
--- NOTE | 2024-05-06 15:35 | RAD_ITS ---
STUDY: X-RAY - RIGHT SHOULDER REASON FOR EXAM: Male, 74 years old. RIGHT SHOULDER PAIN TECHNIQUE: 4 view(s) of the shoulder. COMPARISON: None. FINDINGS: There is moderate degenerative arthrosis of the glenohumeral articulation. There is degenerative arthrosis of the acromioclavicular joint without inferior osseous spur formation. Normal acromion. Normal humeral head and visualized proximal humerus. There is periarticular soft tissue calcification consistent with a calcific tendinitis. Normal visualized pulmonary apex. RAD/Shoulder min 2 Views IMPRESSION: 1. Moderate glenohumeral joint arthrosis. 2. Mild acromioclavicular joint arthrosis. 3. Hydroxyapatite deposition disease (calcific tendinitis). Electronically Signed: Ruben Echols MD at 9:25 EDT ,
--- NOTE | 2024-05-06 15:57 | RAD_ITS ---
STUDY: X-RAY - RIGHT HAND REASON FOR EXAM: Male, 74 years old. PAIN TECHNIQUE: 3 view(s) of the hand. COMPARISON: None. FINDINGS: There is joint space narrowing of the radiocarpal articulation consistent with degenerative arthrosis. Normal distal radioulnar joint. Normal visualized carpal bones. Widening of the scapholunate interval possibly consistent with scapholunate ligament tear. There is degenerative arthrosis of the carpometacarpal (CMC) articulation of the thumb. Normal second through fifth carpometacarpal joints. Normal metacarpi. Normal metacarpophalangeal joint of the thumb. Normal interphalangeal joint of the thumb. Normal proximal and distal phalanges of the thumb. Normal metacarpophalangeal joints of the second through fifth fingers. There is diffuse articular joint space narrowing of the proximal and distal interphalangeal joints of the second through fifth fingers, particularly the fifth distal interphalangeal joint., but without erosive changes or periarticular soft tissue swelling. Normal phalanges of the second through fifth fingers. The soft tissue structures are unremarkable. RAD/Hand Min 3 Views IMPRESSION: Degenerative joint disease of the hand and wrist, as described above. Electronically Signed: Ruben Echols MD at 9:20 EDT ,
== END | disposition home or self-care (01) ==
LOC: RAD 15:22
PROVIDERS: PCP Family Medicine Geriatric Medicine; Referring Provider Family Medicine Geriatric Medicine; Visit Provider Family Medicine Geriatric Medicine
DX: M79.641 Pain in right hand (principal); M25.511 Pain in right shoulder; M54.50 Low back pain, unspecified
CPT/HCPCS: 72110; 73030; 73130

== ENCOUNTER → 2024-08-17 | Outpatient (CLI) | payer MEDICARE, SELFPAY ==
[2024-08-17 10:49] LABS: Absolute Lymphocyte Count 2.53 X10^3/uL (0.83-4.51); Absolute Neutrophil Count 3.5 X10^3/uL (2.0-7.7); Basophil# 0.04 X10^3/uL; Basophil% 0.6 % (0-1); Eosinophil# 0.15 X10^3/uL; Eosinophils% 2.3 % (0-5); Hematocrit 45.5 % (40-54); Hemoglobin 15.3 g/dL (13.0-16.5); Lymphocyte # 2.53 X10^3/ul (0.83-4.51); Lymphocyte % 38.1 % (19-41); Mean Corp Hgb Conc 33.6 g/dL (32-36); Mean Corpuscular Hgb 30.3 pg (27.0-32.0); Mean Corpuscular Volume 90.1 fL (80-94); Mean Platelet Vol. 9.6 fl (6.2-12.0); Monocyte# 0.39 X10^3/uL; Monocyte% 5.9 % (0-10); NRBC Flagged by Analyzer 0 % (0-5); Neutrophil % 52.6 % (47-70); Platelet Count 197 K/mm3 (150-450); RBC Distribution Width CV 12.7 % (11.6-14.6); RBC Distribution Width SD 42.1 fl (35.1-43.9); Red Blood Count 5.05 M/mm3 (4.6-6.2); White Blood Count 6.6 K/mm3 (4.4-11.0)
[2024-08-17 11:14] LABS: Vitamin D,25 Hydroxy 11.8 ng/mL
[2024-08-17 11:23] LABS: ALB/GLOB Ratio 1.4 RATIO (0.9-2.4); AST(SGOT) 19 U/L (15-37); Alanine Aminotransfer ALT/SGPT 25 U/L (16-61); Albumin, Serum 3.9 g/dL (3.2-5.0); Alkaline Phosphatase 61 U/L (45-117); Anion Gap 5 (5-15); BUN 12 mg/dL (7-18); BUN/Creat Ratio 14.8 RATIO (10-20); Calcium,Total 9.2 mg/dL (8.5-10.1); Chloride 105 mmol/L (98-107); Cholesterol 263 mg/dL (200); Creatinine, Serum 0.81 mg/dL (0.70-1.30); EST Glomerular Filtration Rate 99 mL/min (>60); Est Glom Filt Rate - Afr Amer 120 mL/min (>60); Globulin 2.7 g/dL (2.2-4.2); Glucose 99 mg/dL (74-106); High Density Lipoprotein 63 mg/dL; Potassium 4.1 mmol/L (3.5-5.1); Protein, Total 6.6 g/dL (6.4-8.2); Sodium Level 139 mmol/L (136-145); Triglycerides 233 mg/dL; Very Low Density Lipoprotein 47 mg/dL (5-40)
--- OUTSIDE RECORDS SUMMARY | 2024-08-17 11:41 | XMS RPT_ITS | CCD ---
Author Organization [facility] Care Team Providers Care Manager Competitive Intelligence Name Role Phone IKER CHERYLE Unavailable Unavailable MAMTA, LULI-CHI Unavailable Unavailable MAMTA LULI-CHI Referring Unavailable HOWARD HUNTER Attending Unavailable Ascencion Roca MD Primary Care Provider Howard Hunter MD Unavailable Medications Current Medications Medication Drug Class(es) Dates Sig (Normalized) Sig (Original) alprostadil 0.02 mg injection (2 sources) Prostaglandin Analog, Prostaglandin E1 Agonist Start: 05-03-2024 Alprostadil, Vasodilator, 20 MCG reconstituted solution Indications: Erectile Dysfunction Intracavernosal injection of Trimix as directed for erectile dysfunction. Inject 0.05mL or 5 units. Okay to increase by 0.02 or 2 units as needed for desired response up to 0.5 mL or 50 units. 1 each 5 05/03/2024 Active gabapentin 300 mg oral capsule (2 sources) Anti-epileptic Agent gabapentin (Neurontin) 300 MG capsule Take 300 mg by mouth in the morning and 300 mg at noon and 300 mg before bedtime. Active Problems Problem Classification Problem Date Documented Da te Episodic/Chronic Hyperplasia of prostate (4 sources) Benign prostatic hyperplasia with lower urinary tract symptoms; Translations: [Benign prostatic hypertrophy with outflow obstruction] Onset: 09-06-2022 Chronic Other diseases of kidney and ureters (2 sources) Other obstructive and reflux uropathy; Translations: [Other obstructive and reflux uropathy] Onset: 09-06-2022 Episodic Other male genital disorders (2 sources) Erectile dysfunction due to arterial insufficiency; Translations: [Erectile dysfunction due to arterial insufficiency] Onset: 09-06-2022 Chronic Other male genital disorders (4 sources) Erectile dysfunction co-occurrent and due to arterial insufficiency; Translations: [Erectile dysfunction due to arterial insufficiency] Onset: 09-06-2022 05-03-2024 Chronic Results Test Name Value Interpretation Reference Range Facility 3605-04-2024 36 Spoke with patient. Made patient aware refill was sent to pharmacy. [address] 05-03-2024 36 Medication sent [place] [address] Name of caller: Elier lin Contact phone number: [phone] Relationship to Patient: patient Provider: Dr. Hunter Practice: Urology Chief Complaint/Reason for Call: Patient Ruben calling in and wanted to know if Dr. Hunter could call in Trimix for the patient. Patients last office visit was 08/2022. Please advise Best time of day caller can be reached: Any Patient advised that office/PCP has 24-48 business hours to return their call: N/A [address] 09-26-2022 36 Returned call to [facility]. Per pharmacy they got the papaverine back in stock and RX was filled as ordered. States patient picked it up yesterday. [facility] 36 Ok to use bimix [address] 09-25-2022 36 Received call from fabrice grady regarding pt's Trimix order. The pharmacy is out of Papaverine. They would like to know if they can change the order to use a supplement. Please advise, thank you [place] [address]on 09-24-2022 36 Pharmacy called to h saimae trimix order faxed. Faxed at this time. [address] 09-20-2022 36 Trimix prescription created and will place at the front [facility] Closing encounter [place] [address] Received VM from pt stating medication script has not been received from pharmacy. Noted prescription not found in media. [place] [address] 09-10-2022 36 Patient called in. Sydnie chan had a Trimix teaching on 09/06/[address] Hunter was to sent script for trimix to [facility]. Patient has not received rx. No script in media at this time. Please write script and fax to [facility]. Let patient know we will update him once rx is sent. [facility] Procedure Noteon [facility] Procedure Note Normal [facility] ([place]) Final Surgical Pathology Rep chilango 03-31-2018 Final Surgical Pathology Report . Pathology ReportsAccession: Collected Date/Time: Received Date/Time: Pathologist:[id number] 03/27/2018 10:45 EDT 03/30/2018 07:34 EDT DO CHRISTIAN DAVIS Final Surgical Pathology ReportDIAGNOSIS:A) TUBULAR ADENOMA, TRANSVERSE COLON.B) TUBULAR ADENOMA, CECUM.C) HYPERPLASTIC POLYPS, DISTAL SIGMOID COLON.CLINICAL INFORMATION:Procedure: COLONOSCOPY WITH HOT SNARE POLYPECTOMY AND POLYP BIOPSYPreoperative diagnosis: SCREENING COLONOSCOPYPostoperative diagnosis: SCREENING COLONOSCOPYSPECIMEN:A POLYP, COLORECT - TRANSVERSE COLONB POLYP, COLORECT - CECUMC POLYP, COLORECT - POLYP DISTAL SIGMOIDGROSS DESCRIPTION:A. Received in formalin labeled transverse colon polyp is a 0.5 cm orr glistening soft tissue. TS -1B. Received in formalin labeled cecal polyp are 2 orr glistening soft tissues averaging 0.3 cm. TS -1C. Received in formalin labeled distal sigmoid polyp is a 0.4 cm orr glistening soft tissue. TS -1Dictated by TIBURCIO PRASAD ([facility])MICROSCOPIC DESCRIPTION:A,B&C) Slides reviewed.Electronically Signed byPathology Report verified by [facility]ron[facility] signed by CHRISTIAN DAVIS DOSign out Date: 03/31/2018 12:04Performing Lab: [facility], [address] [place] [address] Normal [facility] ([place]) Comment on above: Performed By: #### SPFR ####[facility] [id number] [place] [address] ENDO Procedure Recordon 03-27-2018 [facility] ENDO Procedure Record Normal [facility] ([place]) Depart Summaryon 03-27-2018 Depart Summary Normal Counts include 234 beds at the [facility] ([place]) History and Physicalon 03-27 History and Physical Normal [facility] ([place]) [facility] Patient Summaryon 03-27-2018 [facility] Patient Summary Normal [facility] ([place]) Encounters Encounter Date Encounter Type Care Provider Facility Start: 05-03-2024 End: 05-03-2024 Telephone encounter Howard Hunter MD Work Phone: [facility] Urology Comment on above: Med Refill Start: 09-06-2022 End: 09-06-2022 ambulatory LULI-CHI MAMTA [facility] Start: 03-27-2018 End: 03-27-2018 Ambulatory CHERYLE DONG Facility:B Plan of Treatment Date Care Activity Detail Author Start: 06-14-2025 DTaP/Tdap/Td Vaccine s (2 - Td or Tdap) DTaP/Tdap/Td Vaccines (2 - Td or Tdap) [facility] Start: 06-20-2024 Influenza vaccination Influenza Vacc ine (#1) [facility] Start: 10-20-2023 Medicare Advantage A nnual Wellness Visit Medicare Advantage Annual Wellness Visit [facility] Start: 06-20-2023 COVID-19 Vaccine ( season) COVID-19 Vaccine ( season) [facility] Start: 04-07-2020 Zoster Vaccines (2 of 2) Zoster Vacc dayana (2 of 2) [facility] Start: 02-10-2020 Pneumococcal Vaccine : 65+ Years (2 of 2 - PCV) Pneumococcal Vaccine: 65+ Years (2 of 2 - PCV) [facility] Start: 2011 RSV Immunization age d 60 or older (1 - 1-dose 60+ series) RSV Immunization aged 60 or older (1 - 1-dose 60+ series) [facility] Start: 1969 Diabetes mellitus screening Diabetes Screening [facility] Start: 1969 Hepatitis C screening Hepatitis C Sc reening [facility] Start: 1963 Depression Screening Depression Scre ening [facility] Start: 1950 Lipid panel Lipid Panel [facility] Start: 1950 Screening for malign ant neoplasm of colon [facility] Immunizations Immunization Date Immunization Notes Care Provider Fa cility 07-02-2021 influenza virus vacc ine, unspecified formulation Howard Hunter MD Work Phone: [facility] Payers Date Payer Category Payer Medicare [employer] [id number] 2021-Present [address] [place] [id number] Medicare HMO [id number] 2018 Medicare [id number] Social History Date Type Detail Facility Start: 09-06-2022 Tobacco smoking status NHIS Never sm oked tobacco [facility] Start: 09-06-2022 Tobacco use and exposure Smokeless t obacco non-user [facility] Start: 09-06-2022 Alcoholic beverage intake Curr ent drinker of alcohol (finding) [facility] Start: 09-06-2022 History of Social function [facility] Start: 09-06-2022 Tobacco use panel [facility] Start: 1950 Sex assigned at Not on file [facility] Telephone encounter Note 05-04-2024 Telephone Encounter - Suzy Hammond RN - 05/04/2024 11:38 AM EDT Note Date & Type Note Facility 05-04-2024 Telephone encounter Note Form atting of this note might be different from the original. Spoke with patient. Made patient aware refill was sent to pharmacy. [facility] Note 05-04-2024 Telephone Encounter - Suzy Hammond RN - 05/04/2024 11:38 AM EDTAddendum Note - ANNETTE Jenkins CNP - 05/03/2024 2:20 PM EDT Note Date & Type Note Facility 05-04-2024 Miscellaneous Notes Formattin g of this note might be different from the original. Spoke with patient. Made patient aware refill was sent to pharmacy. Addended by: EFRAIN MONAE on: 05/03/2024 02:20 PM Modules accepted: Orders Medication sent Name of caller: Ruben Contact phone number: [phone] Relationship to Patient: patient Provider: Dr. Hunter Practice: Urology Chief Complaint/Reason for Call: Patient Ruben calling in and wanted to know if Dr. Hunter could call in Trimix for the patient. Patients last office visit was 08/2022. Please advise Best time of day caller can be reached: Any Patient advised that office/PCP has 24-48 business hours to return their call: N/A documented in this encounter [facility] Note 05-03-2024 Addendum Note - ANNETTE Jenkins CNP - 05/03/2024 2:20 PM EDT Note Date & Type Note Facility 05-03-2024 Note Addended by: Briana MONAE on: 05/03/2024 02:20 PM Modules accepted: Orders [facility] Clinical Note 05-03-2024 Addendum Note - ANNETTE Jenkins CNP - 05/03/2024 2:20 PM EDT Note Date & Type Note Facility 05-03-2024 Note Addended by: Briana MONAE on: 05/03/2024 02:20 PM Modules accepted: Orders [facility] Progress note 05-03-2024 Note Date & Type Note Facility 05-03-2024 Note Addended by: Briana MONAE on: 05/03/2024 02:20 PM Modules accepted: Orders [facility] Telephone encounter Note 05-03-2024 Telephone Encounter - ANNETTE Jenkins CNP - 05/03/2024 2:20 PM EDT Note Date & Type Note Facility 05-03-2024 Telephone encounter Note Form atting of this note might be different from the original. Medication sent [facility] Note 05-03-2024 Addendum Note - ANNETTE Jenkins CNP - 05/03/2024 2:20 PM EDTTelephone Encounter - ANNETTE Jenkins CNP - 05/03/2024 2:20 PM EDT Note Date & Type Note Facility 05-03-2024 Miscellaneous Notes Addended by: EFRAIN MONAE on: 05/03/2024 02:20 PM Modules accepted: Orders Medication sent Name of caller: Ruben Contact phone number: [phone] Relationship to Patient: patient Provider: Dr. Hunter Practice: Urology Chief Complaint/Reason for Call: Patient Ruben calling in and wanted to know if Dr. Hunter could call in Trimix for the patient. Patients last office visit was 08/2022. Please advise Best time of day caller can be reached: Any Patient advised that office/PCP has 24-48 business hours to return their call: N/A documented in this encounter [facility] Telephone encounter Note 05-03-2024 Telephone Encounter - Nabil Akers - 05/03/2024 12:46 PM EDT Note Date & Type Note Facility 05-03-2024 Telephone encounter Note Form atting of this note might be different from the original. Name of caller: Ruben Contact phone number: [phone] Relationship to Patient: patient Provider: Dr. Hunter Practice: Urology Chief Complaint/Reason for Call: Patient Ruben calling in and wanted to know if Dr. Hunter could call in Trimix for the patient. Patients last office visit was 08/2022. Please advise Best time of day caller can be reached: Any Patient advised that office/PCP has 24-48 business hours to return their call: N/A [facility] Evaluation note Note Date & Type Note Facility Evaluation note Diagnosis Erectile dysfunction due to arterial insufficiency- Primary documented in this encounter [facility] Evaluation note Note Date & Type Note Facility Evaluation note Diagnosis Erectile dysfunction due to arterial insufficiency- Primary documented in this encounter [facility] Summary Purpose Family History No Family History Records FoundNo Family History Records FoundNo Family History Records Found Advance Directives No Advanced Directives Records FoundNo Advanced Directives Records FoundNo Advanced Directives Records Found Additional Source Comments (unrecognized sect ion and content) No Status Records FoundNo Status Records FoundNo Status Records Found INFORMATION SOURCE (unrecogn ized section and content) DATE CREATED AUTHOR 04/07/[address] [facility] ([place]) DATE CREATED AUTHOR AUTHOR'S ORGANIZ ATION 09/27/2022 [facility] DATE CREATED AUTHOR AUTHOR'S ORGANIZ ATION 05/07/2024 [facility] Reason for Visit (unrecogniz ed section and content) Reason Onset Date Comments Med Refill 05/03/2024 Care Teams (unrecognized sec tion and content) Manager Competitive Intelligence Relationship Specialty Start Date End Date Ascencion Roca MD [address] [place] [address] PCP - General 05/09/22 Howard Hunter MD [address] [place] [address] Surgeon Urology 09/06/22 Manager Competitive Intelligence Relationship Specialty Start Date End Date Ascencion Roca MD [address] [place] [address] PCP - General 05/09/22 Howard Hunter MD [address] [place] [address] Surgeon Urology 09/06/22 FOR RECORDS PERTAINING TO PATIENTS WHO ARE OR HAVE BEEN ENROLLED IN A CHEMICAL DEPENDENCY/SUBSTANCEABUSE PROGRAM, SOME INFORMATION MAY BE OMITTED. This clinical summary was aggregated from multiple sources. Caution should be exercised in using it in the provision of clinical care. This summary normalizes information from multiple sources, and as a consequence, information in this document may materially change the coding, format and clinical context of patient data. In addition, data may be omitted in some cases. CLINICAL DECISIONS SHOULD BE BASED ON THE PRIMARY CLINICAL RECORDS. [facility]. provides no warranty or guarantee of the accuracy or completeness of information in this document.
== END | disposition home or self-care (01) ==
PROVIDERS: PCP Family Medicine Geriatric Medicine; Referring Provider Family Medicine Geriatric Medicine; Visit Provider Family Medicine Geriatric Medicine
DX: I10 Essential (primary) hypertension (principal); E55.9 Vitamin D deficiency, unspecified; E78.5 Hyperlipidemia, unspecified
CPT/HCPCS: 36415; 80053; 80061; 82306; 84443; 85025

== ENCOUNTER → 2024-12-03 | Outpatient (CLI) | payer MEDICARE, SELFPAY ==
[2024-12-03 12:51] LABS: Absolute Lymphocyte Count 2.38 X10^3/uL (0.83-4.51); Absolute Neutrophil Count 3.5 X10^3/uL (2.0-7.7); Basophil# 0.03 X10^3/uL; Basophil% 0.5 % (0-1); Eosinophil# 0.18 X10^3/uL; Eosinophils% 2.8 % (0-5); Hematocrit 45.6 % (40-54); Hemoglobin 15.6 g/dL (13.0-16.5); Lymphocyte # 2.38 X10^3/ul (0.83-4.51); Lymphocyte % 36.7 % (19-41); Mean Corp Hgb Conc 34.2 g/dL (32-36); Mean Corpuscular Volume 87.7 fL (80-94); Mean Platelet Vol. 9.8 fl (6.2-12.0); Monocyte# 0.43 X10^3/uL; Monocyte% 6.6 % (0-10); NRBC Flagged by Analyzer 0 % (0-5); Neutrophil # 3.45 X10^3/uL (2.7-7.7); Neutrophil % 53.1 % (47-70); Platelet Count 212 K/mm3 (150-450); RBC Distribution Width CV 12.5 % (11.6-14.6); RBC Distribution Width SD 40.2 fl (35.1-43.9); White Blood Count 6.5 K/mm3 (4.4-11.0)
[2024-12-03 13:16] LABS: ALB/GLOB Ratio 1.1 RATIO (0.9-2.4); AST(SGOT) 27 U/L (15-37); Alanine Aminotransfer ALT/SGPT 31 U/L (16-61); Albumin, Serum 3.6 g/dL (3.2-5.0); Alkaline Phosphatase 68 U/L (45-117); Anion Gap 7 (5-15); BUN 11 mg/dL (7-18); BUN/Creat Ratio 12.4 RATIO (10-20); Calcium,Total 9.3 mg/dL (8.5-10.1); Chloride 105 mmol/L (98-107); Creatinine, Serum 0.88 mg/dL (0.70-1.30); EST Glomerular Filtration Rate 90 mL/min (>60); Est Glom Filt Rate - Afr Amer 108 mL/min (>60); Globulin 3.4 g/dL (2.2-4.2); Glucose 129 mg/dL (74-106); Sodium Level 137 mmol/L (136-145)
== END | disposition home or self-care (01) ==
LOC: LAB 11:38
PROVIDERS: PCP Family Medicine Geriatric Medicine; Referring Provider Family Medicine Geriatric Medicine; Visit Provider Family Medicine Geriatric Medicine
DX: I10 Essential (primary) hypertension (principal)
CPT/HCPCS: 36415; 80053; 85025

== ENCOUNTER → 2025-02-24 | Outpatient (CLI) | payer MEDICARE, SELFPAY ==
[2025-02-24 14:57] LABS: Absolute Lymphocyte Count 2.23 X10^3/uL (0.83-4.51); Absolute Neutrophil Count 3.4 X10^3/uL (2.0-7.7); Basophil# 0.03 X10^3/uL; Basophil% 0.5 % (0-1); Eosinophil# 0.19 X10^3/uL; Hematocrit 43.3 % (40-54); Hemoglobin 15.3 g/dL (13.0-16.5); Lymphocyte # 2.23 X10^3/ul (0.83-4.51); Lymphocyte % 35.3 % (19-41); Mean Corp Hgb Conc 35.3 g/dL (32-36); Mean Corpuscular Hgb 30.9 pg (27.0-32.0); Mean Corpuscular Volume 87.5 fL (80-94); Mean Platelet Vol. 9.8 fl (6.2-12.0); Monocyte# 0.47 X10^3/uL; Monocyte% 7.4 % (0-10); NRBC Flagged by Analyzer 0 % (0-5); Neutrophil # 3.38 X10^3/uL (2.7-7.7); Neutrophil % 53.5 % (47-70); Platelet Count 197 K/mm3 (150-450); RBC Distribution Width CV 12.8 % (11.6-14.6); RBC Distribution Width SD 40.7 fl (35.1-43.9); Red Blood Count 4.95 M/mm3 (4.6-6.2); White Blood Count 6.3 K/mm3 (4.4-11.0)
[2025-02-24 15:46] LABS: Cholesterol 275 mg/dL (<=200); High Density Lipoprotein 57 mg/dL; Low Density Lipoprotein Calc. 167 mg/dL; Triglycerides 255 mg/dL; Very Low Density Lipoprotein 51 mg/dL (5-40); Vitamin D,25 Hydroxy 15.8 ng/mL (30-100); cholesterol:hdl ratio screen 4.79
[2025-02-24 15:57] LABS: ALB/GLOB Ratio 1.9 RATIO (0.9-2.4); AST(SGOT) 23 U/L (<=37); Alanine Aminotransfer ALT/SGPT 22 U/L (<=46); Albumin, Serum 4.2 g/dL (3.4-4.8); Alkaline Phosphatase 65 U/L (40-129); Anion Gap 12 (5-15); BUN 12 mg/dL (4-19); BUN/Creat Ratio 13.9 RATIO (10-20); Calcium,Total 9.5 mg/dL (7.6-11.0); Chloride 102 mmol/L (98-108); Creatinine, Serum 0.88 mg/dL (0.70-1.20); EST Glomerular Filtration Rate 91 (>60); Globulin 2.2 g/dL (2.2-4.2); Glucose 97 mg/dL (70-99); Potassium 4.3 mmol/L (3.3-5.1); Protein, Total 6.4 g/dL (5.9-8.4); Sodium Level 138 mmol/L (133-145); Total Bilirubin 0.54 mg/dL (0.00-1.30)
== END | disposition home or self-care (01) ==
LOC: LAB 13:40
PROVIDERS: PCP Family Medicine Geriatric Medicine; Referring Provider Family Medicine Geriatric Medicine; Visit Provider Family Medicine Geriatric Medicine
DX: I10 Essential (primary) hypertension (principal); E55.9 Vitamin D deficiency, unspecified; E78.5 Hyperlipidemia, unspecified
CPT/HCPCS: 36415; 80053; 80061; 82306; 84443; 85025

== ENCOUNTER → 2025-04-11 | Outpatient (CLI) | payer MEDICARE, SELFPAY ==
[2025-04-11 16:12] LABS: Cholesterol 229 mg/dL (<=200); High Density Lipoprotein 60 mg/dL; Low Density Lipoprotein Calc. 122 mg/dL; Triglycerides 233 mg/dL; Very Low Density Lipoprotein 47 mg/dL (5-40)
== END | disposition home or self-care (01) ==
LOC: LAB 14:56
PROVIDERS: PCP Family Medicine Geriatric Medicine; Referring Provider Family Medicine Geriatric Medicine; Visit Provider Family Medicine Geriatric Medicine
DX: E78.5 Hyperlipidemia, unspecified (principal)
CPT/HCPCS: 36415; 80061

== ENCOUNTER → 2025-05-23 | Outpatient (CLI) | payer MEDICARE, SELFPAY ==
--- NOTE | 2025-05-23 16:24 | CT_ITS ---
PROCEDURE: ABDOMEN/PELVIS WITHOUT CONT 05/23/2025 REASON FOR EXAM: CALCULUS OF KIDNEY TECHNIQUE: ABDOMEN/PELVIS WITHOUT CONT Noncontrast technique limits evaluation of the abdominal and pelvic viscera. Coronal and Sagittal reconstruction series were provided. One or more dose reduction techniques were used (e.g., Automated exposure control, adjustment of the mA and/or kV according to patient size, use of iterative reconstruction technique). RADIATION DOSE SUMMARY: CTDlvol: 16.04 mGy DLP: 822.07 mGycm COMPARISON: None. FINDINGS: Lung bases: Clear. Atherosclerotic calcifications of the coronary arteries. Liver: Unremarkable. Gallbladder: Cholelithiasis with no evidence of acute cholecystitis. Spleen: Unremarkable. Pancreas: Unremarkable. Adrenals: Unremarkable. Kidneys: A 1 cm stone at the lower pole of the right kidney. An 8 mm stone at the right ureteral-bladder junction causing moderate right hydroureteronephrosis. Limited evaluation due to streak artifact from bilateral hip replacement. Left extrarenal pelvis versus narrowing of the left ureteropelvic junction.. Bladder: Lobulated contour of the bladder indicating chronic outlet obstruction. Reproductive Organs: Unremarkable. Bowel: No bowel wall thickening. No bowel obstruction. Appendix: Unremarkable. Lymph nodes: No lymphadenopathy. Vasculature: Atherosclerotic calcifications of the aorta and iliac arteries. No aneurysm. Peritoneum / Retroperitoneum: No free air or free fluid. Bones: No acute bony abnormalities. Multilevel degenerate changes of the lumbar spine. Status post total bilateral hip replacement. CT/Abdomen/Pelvis without Cont IMPRESSION: A 1 cm stone at the lower pole of the right kidney. An 8 mm stone at the right ureteral-bladder junction causing moderate right hyd roureteronephrosis. Limited evaluation due to streak artifact from bilateral hip replacement. Left extrarenal pelvis versus narrowing of the left ureteropelvic junction. Lobulated contour of the bladder indicating chronic outlet obstruction. Reading Location: [id number]
[2025-05-23 16:51] LABS: Hematocrit 43.2 % (40-54); Hemoglobin 14.9 g/dL (13.0-16.5); Immature Granulocytes Count 0.010 X10^3/uL (0.0-0.0); Mean Corp Hgb Conc 34.5 g/dL (32-36); Mean Corpuscular Volume 88.3 fL (80-94); Mean Platelet Vol. 9.8 fl (6.2-12.0); NRBC Flagged by Analyzer 0 % (0-5); Platelet Count 200 K/mm3 (150-450); RBC Distribution Width CV 12.7 % (11.6-14.6); RBC Distribution Width SD 41.1 fl (35.1-43.9); Red Blood Count 4.89 M/mm3 (4.6-6.2); White Blood Count 5.9 K/mm3 (4.4-11.0)
[2025-05-23 17:59] LABS: PSA,Total- Diagnostic 0.09 ng/mL (0.00-4.00)
[2025-05-23 18:04] LABS: Anion Gap 14 (5-15); BUN 16 mg/dL (4-19); BUN/Creat Ratio 20.3 RATIO (10-20); Calcium,Total 9.7 mg/dL (7.6-11.0); Carbon Dioxide 21.1 mmol/L (21.0-32.0); Chloride 102 mmol/L (98-108); Glucose 97 mg/dL (70-99); Potassium 4.4 mmol/L (3.3-5.1)
[2025-05-24 00:14] LABS: Xtra Tube Kwok EXTRA TUBE
== END | disposition home or self-care (01) ==
PROVIDERS: PCP Family Medicine Geriatric Medicine; Referring Provider Family Medicine Geriatric Medicine; Visit Provider Family Medicine Geriatric Medicine
DX: N20.0 Calculus of kidney (principal); I10 Essential (primary) hypertension; N40.0 Benign prostatic hyperplasia without lower urinary tract symptoms; N39.0 Urinary tract infection, site not specified
CPT/HCPCS: 36415; 74176; 80048; 84153; 85025; 87086

== ENCOUNTER 2025-06-03 09:02 | Day surgery (SDC) | payer MEDICARE, SELFPAY ==
[2025-06-03] VITALS (9 sets, daily range): BP systolic 127–141; BP diastolic 63–72; PULSE 54–64; RESP 12–16; TEMP 36.2–36.8; O2SAT 97–100; BMI 28.8
--- NOTE | 2025-06-03 09:30 | RAD_ITS ---
PROCEDURE: ABDOMEN SINGLE VIEW 06/03/2025 REASON FOR EXAM: KIDNEY STONE TECHNIQUE: ABDOMEN SINGLE VIEW COMPARISON: Prior CT scan of the abdomen dated May 23, 2025. FINDINGS: Bowel gas: Fecal material is seen throughout the colon. Calcifications: 7 mm calcification overlying the lower pole calyx of the right kidney. Bones: There are degenerative changes of the spine. Status post bilateral hip replacement. Other: RAD/Abdomen Single View IMPRESSION: 7 mm calcification overlying the lower pole calyx of the right kidney. Reading Location: [place] [address]
[2025-06-03] MEDS: Lactated Ringers 1,000 ML 15 ML IV ×2 (10:00→13:50)
--- NOTE | 2025-06-03 10:05 | PCM.PRE.AN2 ---
ASA Classification* ASA Classification ASA Classification: 2 Assessment & Plan Anesthesia* Anesthesia Assessment Anesthesia Assessment: Discussed sedation and/or anesthesia options, risks, benefits, and alternatives with patient/parents/legal guardian/POA. Questions invited. The patient/parents/legal guardian/POA seems to understand and agrees to proceed with anesthesia plan. Reviewed the physical assessment, medical history, allergy history and patient home medications list prior to surgery/procedure/anesthetic and documented any changes. Performed airway and anesthesia risk assessments. Anesthesia Type Anesthesia Type: General History Source History Obtained from:: Patient and Chart Anesthesia Focused Assessment* Temperature: 98.3 F Pulse Rate: 64 Blood Pressure: 127/68 Respiratory Rate: 16 Pulse Ox: 98 Oxygen Delivery Method: Room Air Airway Assessment Mouth opens: >3 cm Mallampati Score: II Teeth Condition: Intact Neck Range of motion (ROM): Full ROM Labs Anesthesia Preop lab: CBC WBC 5.9 K/mm3 (4.4-11.0) 05/23/25 16:14 05/23/25 RBC 4.89 M/mm3 (4.6-6.2) 05/23/25 16:14 05/23/25 Hgb 14.9 g/dL (13.0-16.5) 05/23/25 16:14 05/23/25 Hct 43.2 % (40-54) 05/23/25 16:14 05/23/25 Plt Count 200 K/mm3 (150-450) 05/23/25 16:14 05/23/25 CHEMISTRY Potassium 4.4 mmol/L (3.3-5.1) 05/23/25 16:14 05/23/25 Sodium 137 mmol/L (133-145) 05/23/25 16:14 05/23/25 BUN 16 mg/dL (4-19) 05/23/25 16:14 05/23/25 Creatinine 0.80 mg/dL (0.70-1.20) 05/23/25 16:14 05/23/25 Glucose 97 mg/dL (70-99) 05/23/25 16:14 05/23/25 TSH 2.310 uIU/mL (0.300-4.200) 02/24/25 13:50 02/24/25 COAG Pre-Assessment Diagnosis/Proposed Procedure Planned Operative Procedure(s): (R) ESWL,Cystocopy Insertion Stent Anesthesia History 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 When Was Last Pacemaker Check QUESTION #4 FULL TEXT: You/Your Family Experience fever (hyperthermia) with Anesthesia Last Oral Intake Last Oral intake: Last Oral Intake NPO since 18:30 06/03/25 09:54 Meds taken in AM with sips of No 06/03/25 09:54 water? Meds patient instructed to take am of surgery PONV PONV - cut out machine operator: PONV - cut out machine operator Female No 05/27/25 12:51 HX of Motion Sickness No 05/27/25 12:51 HX of N/V After Surgery No 05/27/25 12:51 Non-Smoker Yes 05/27/25 12:51 Duration of Surgery greater No 05/27/25 12:51 than 60 minutes Number of Risk Factors 1 05/27/25 12:51 PONV Score Low Risk 05/27/25 12:51 Height & Weight Height & Weight: Anesthesia: Height & Weight Height 5 ft 8 in 06/03/25 09:54 Weight: 86.2 kg 06/03/25 09:54 Body Mass Index (BMI) 28.8 06/03/25 09:54 Respiratory Assessment Respiratory Assessment - cut out machine operator: Respiratory Tract Infection Hx - cut out machine operator Hx Respiratory Tract Infection No 05/27/25 12:51 STOP Sleep Apnea STOP Sleep Apnea - cut out machine operator: STOP Sleep Apnea - cut out machine operator Hx Hypertension Yes 05/27/25 12:51 Hx Sleep Apnea No 05/27/25 12:51 CPAP BIPAP Do you snore loudly (louder No 05/27/25 12:51 than talking or can be heard Do you often feel tired/ No 05/27/25 12:51 fatigued/ sleepy during daytime? Has anyone observed you stop No 05/27/25 12:51 breathing during sleep? STOP Results Negative 05/27/25 12:51 QUESTION #5 FULL TEXT : Do you snore loudly (louder than talking or can be heard through closed doors)? 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 Specify any problems Hx of Preganancy in last 3 No 05/27/25 12:51 Months Nurse Filling Out Transfusion JZOLLINGE 05/27/25 12:51 & Questions: Date: 05/27/25 05/27/25 12:51 Time: 12:51 05/27/25 12:51 Patient unable to answer at this time (ie. confused, unrespo /Reproduction History /Reproductive History - cut out machine operator: /Reproductive Hx- cut out machine operator Hx Now No 05/27/25 12:51 Gestational Age (in weeks): EDC: Hx Hx Para Hx Section SAB No 05/27/25 12:51 Active Medications Active Medications: Current Medications Generic Name Dose Route Start Last Admin Trade Name Freq PRN Reason Stop Dose Admin Cefazolin Sodium 2 gm/ Sodium 110 mls @ 200 mls/hr 06/03/25 11:25 Chloride IV 06/03/25 11:57 INTRAOP ONE Lactated Ringer's 1,000 mls @ 15 mls/hr 06/03/25 09:30 06/03/25 10:00 IV 15 mls/hr .Q48H KOBE Administration PFSH Medical History (Updated 05/27/25 @ 12:50 by Jahaira Roa) Wears glasses Cancer Bladder disease Injury of back Non-smoker Hypertension Home Medications ?Medication ?Instructions ?Recorded ?Last Taken ?Type tamsulosin 0.4 mg capsule 0.4 mg PO DAILY 04/04/23 Unknown History losartan 50 mg tablet 50 mg PO DAILY 05/27/25 Unknown History pravastatin 10 mg tablet 10 mg PO QHS 05/27/25 Unknown History Allergy/AdvReac Type Severity Reaction Status Date / Time No Known Allergies Allergy Verified 06/03/25 09:53 Family History (Updated 01/20/24 @ 08:44 by Isha Martinez) Brother Diabetes Mother Thyroid disorder Sister Heart disease Surgical History (Updated 05/27/25 @ 12:50 by Jahaira Roa) Hx of colonoscopy History of back surgery History of left hip replacement History of right hip replacement Social History (Updated 01/20/24 @ 08:44 by Isha Martinez) Smoking Status: Never smoker alcohol intake: current alcohol intake frequency: a few times a month Review of Systems (Anesthesia) ROS Narrative System reviewed and no additional complaints, except as documented.
[2025-06-03] MEDS: Midazolam 2 MG/2 ML Syringe IV (12:04)
[2025-06-03] MEDS: Lidocaine 1% (5 ml sdv) 5 ML Vial IV (12:10)
[2025-06-03] MEDS: Cefazolin 1 GM/5 ML Vial 2 GM IV (12:12)
[2025-06-03] MEDS: fentaNYL 100 MCG/2 ML Ampul IV (12:15)
--- NOTE | 2025-06-03 12:27 | OP.PCM_ITS ---
Operative Report (Standard) Operative Information Date of Procedure: 06/03/25 Pre-Operative Diagnosis: Right kidney stone Post-Operative Diagnosis: The same Surgery/Procedure Performed: Cystoscopy right stent placement and right extracorporeal shockwave lithotripsy assistant commissioner: No Type of Anesthesia: General RN Documented Start/Stop Times: Operation Date: 06/03/25 11:25 Case Time Into Pre-Op 06/03/25 09:17 Out of Pre-Op 06/03/25 11:59 Anesthesia Start 06/03/25 12:02 Into Room 06/03/25 12:02 Procedure Start 06/03/25 12:20 Procedure Start Time: 12:02 Procedure Stop Time: 13:01 Select all DRAINS/GRAFTS/IMPLANTS that apply: Drains Drain details: 6 x 26 cm stent right Estimated Blood Loss: 0 Specimen collected: No Description of surgery: Patient presents to the hospital for treatment of a kidney stone with shockwave lithotripsy. In the preoperative area and x-ray was done to confirm the location of the stone. The x-ray was reviewed and the stone location was reviewed. In the preoperative setting I spoke with the patient regarding the treatment of the stone how the treatment would be conducted and the expectations after surgery. The patient understands there is a risk of bleeding and infection. Also discussed the very rare risk of hematoma or damage to the kidney. We also discussed the risk that the shockwave machine will fail to break the stone adequately and that the patient may need other surgical procedures. I also discussed the possibility that the patient may need a stent after the procedure. After reviewing the procedure with the patient, the patient is signed the consent form all the patient's questions were addressed and was taken back to the operating room for treatment of a kidney stone. Patient was taken back to the operating room, the patient was identified by the nursing staff, I identified the side of the treatment and the patient side of treatment had been marked by my initials. The patient underwent general anesthetic and was placed supine on the lithotripter table. I then used fluoroscopy to identify the stone on the right side. The urethra and genitals were prepped and draped in usual sterile fashion. Using a 21 Gabonese rigid cystourethroscope the entire length of the urethra was normal then went into the bladder. Identified the trigone the left and right ureteral orifice. I then cannulated the right ureteral orifice and advanced a wire up into the kidney. I then backloaded a 5 Gabonese open ended catheter over the wire and injected contrast to delineate the anatomy. After the retrograde was performed I then used fluoroscopic images and guidance to advanced a wire up into the kidney and over the 0.038 glidewire I advanced a 6 Gabonese by 26 cm double pigtail stent. I then pulled the 0.038 Glidewire off and the stent coiled in the kidney bladder good position. The bladder was then drained. We confirmed the position of the stent by fluoroscopy. I then positioned the patient under the lithotripter and I used triangulation technique to identify the location of the stone and then I made sure that the stone was engaged in the F2 focal point of F2 Donier lithoprior machine. Once the patient was positioned appropriately and the stone was identified and placed in the F2 focal point of the lithotripter machine I then proceeded with shockwave lithotripsy. In the beginning the shockwave was delivered at a rate of 90 shocks per minute, anesthesia monitored the EKG for any ectopy. The power was slowly increased to 5 kV and subsequently at the 7 kV . I then proceeded with the treatment with shock wave therapy and around during the treatment to make sure the stone stayed in the F2 focal point during the entire treatment and after 3000 shockwaves were delivered to the stone under fluoroscopic guidance the treatment was completed. The patient was given instructions to call the office to make an a follow-up appointment with an x-ray to evaluate the success of the treatment, patient understands that its possible the stones may need another procedure. At this point the patient's anesthetic was reversed patient was extubated and taken back to the PACU in stable condition. Surgical Findings: No stone in distal ureter right stent in place and right kidney stone treated with shockwave lithotripsy Complications Complications: No Admit VTE Documentation VTE Present on Admission: No VTE Mechan Device Prophylaxis: SCD's VTE Pharm Prophylaxis ordered?: No
--- NOTE | 2025-06-03 12:27 | PCM.DC ---
Discharge Instructions DC O2, CPAP, BIPAP needs Home O2 Discharge instructions: No Dressing / Incision Discharge Activity: Return to Normal Activity and May Not Drive (while taking narcotic pain medications.) Dressing / Incision Call your doctor if you observe: Fever of 101 or Higher Follow Up Care Please Follow Up With: Michael Poe MD When: Call [phone] for an appointment Test Results: Test results from this visit will be discussed in further detail at your follow-up appointment, if applicable. Discharge Plan Admission Primary Reason for Your Visit: right kidney stone Attending Provider: Michael Poe Primary Care Provider: Jorge Roca Chi Instructions Print Language: Hungarian Discharge Orders/Prescriptions Prescriptions: New oxycodone 5 mg tablet 5 mg PO Q6H PRN (Reason: pain) 3 Days Qty: 14 0RF No Action tamsulosin 0.4 mg capsule 0.4 mg PO DAILY losartan 50 mg tablet 50 mg PO DAILY pravastatin 10 mg tablet 10 mg PO QHS Referrals / Follow Up: Jorge Roca Chi, MD [Primary Care Provider] - Disposition Disposition (needs filled in before D/C Order can be placed): Home, Self Care
--- NOTE | 2025-06-03 13:11 | PCM.POST.ANE ---
Anesthesia: Postop Eval I Current Vital Signs Temperature: 97.1 F Pulse Rate: 56 Blood Pressure: 141/70 Respiratory Rate: 12 Pulse Ox: 98 Assessment Airway patent: Yes Spontaneous unlabored respirations: Yes nausea: No Vomiting: No Anesthesia Complication: No Fluid Hydration Crystalloid volume administer (ml): 800 Total IV fluid infused: 800 Progress Note Anesthesia document: Postop Eval 1 completed: Yes
--- NOTE | 2025-06-03 13:43 | POSTOPAN2_ITS ---
Anesthesia Postop Eval I Sum Postop Eval Completion status Anesthesia document: Postop Eval 1 completed: Yes Anesthesia Postop Eval I Summary Anesthesia Postop Eval I Summary: Anesthesia Postop Eval I: Assessment Summary Airway patent Yes 06/03/25 13:11 TAPER AND FLOATER.KCRO Spontaneous unlabored Yes 06/03/25 13:11 TAPER AND FLOATER.KCRO respirations Mental status nausea No 06/03/25 13:11 TAPER AND FLOATER.KCRO Vomiting No 06/03/25 13:11 TAPER AND FLOATER.KCRO Anesthesia Postop Eval I: Fluid Summary Crystalloid volume administer 800 06/03/25 13:11 TAPER AND FLOATER.KCRO (ml) Colloids volume administered ( ml) Blood Product volume administered (ml) Total IV fluid infused 800 06/03/25 13:11 TAPER AND FLOATER.KCRO Anesthesia Postop Eval I: Summary Notes Anesthesia Complication No 06/03/25 13:11 TAPER AND FLOATER.KCRO Anesthesia Complication Comment: Post-operative progress note Anesthesia: Postop Eval II Evaluation Mental status: Awake and Calm Pain Level: 1 nausea: No Vomiting: No Complications Anesthesia Complication: No
--- NOTE | 2025-06-03 13:43 | PCM.POSTANE2 ---
Anesthesia Postop Eval I Sum Postop Eval Completion status Anesthesia document: Postop Eval 1 completed: Yes Anesthesia Postop Eval I Summary Anesthesia Postop Eval I Summary: Anesthesia Postop Eval I: Assessment Summary Airway patent Yes 06/03/25 13:11 FLEET OPERATIONS MANAGER.KCRO Spontaneous unlabored Yes 06/03/25 13:11 FLEET OPERATIONS MANAGER.KCRO respirations Mental status nausea No 06/03/25 13:11 FLEET OPERATIONS MANAGER.KCRO Vomiting No 06/03/25 13:11 FLEET OPERATIONS MANAGER.KCRO Anesthesia Postop Eval I: Fluid Summary Crystalloid volume administer 800 06/03/25 13:11 FLEET OPERATIONS MANAGER.KCRO (ml) Colloids volume administered ( ml) Blood Product volume administered (ml) Total IV fluid infused 800 06/03/25 13:11 FLEET OPERATIONS MANAGER.KCRO Anesthesia Postop Eval I: Summary Notes Anesthesia Complication No 06/03/25 13:11 FLEET OPERATIONS MANAGER.KCRO Anesthesia Complication Comment: Post-operative progress note Anesthesia: Postop Eval II Evaluation Mental status: Awake and Calm Pain Level: 1 nausea: No Vomiting: No Complications Anesthesia Complication: No
== END 2025-06-03 14:19 | disposition home or self-care (01) ==
LOC: SDC 09:04 → AC 09:07
PROVIDERS: PCP Family Medicine Geriatric Medicine; Referring Provider Urology; Visit Provider Urology
PROC: (CPT 50590; principal; 2025-06-03 11:15)
DX: N20.0 Calculus of kidney (principal); N40.1 Benign prostatic hyperplasia with lower urinary tract symptoms; R33.8 Other retention of urine; I10 Essential (primary) hypertension; Z85.46 Personal history of malignant neoplasm of prostate; Z92.3 Personal history of irradiation; Z79.899 Other long term (current) drug therapy
CPT/HCPCS: 52332; 74018; C1769; C2617; J2405

== ENCOUNTER → 2025-06-08 | Outpatient (CLI) | payer MEDICARE, SELFPAY ==
--- NOTE | 2025-06-08 14:20 | RAD_ITS ---
PROCEDURE: ABDOMEN SINGLE VIEW 06/08/2025 REASON FOR EXAM: CALCULUS OF KIDNEY TECHNIQUE: ABDOMEN SINGLE VIEW COMPARISON: June 03, 2025 FINDINGS: There is a double-J stent on the right. Surgical clips are noted in the pelvis, unchanged. Hardware is partly visible in the right and left hip, unchanged. There is a 1 cm calcification in the right upper quadrant consistent with gallstone. There is a 0.6 cm calcification overlying the right renal shadow. There is a nonobstructive bowel gas pattern. There is no acute bony abnormality. RAD/Abdomen Single View IMPRESSION: Double-J stent in position on the right. Cholelithiasis. Right nephrolithiasis Reading Location: [facility]
--- OUTSIDE RECORDS SUMMARY | 2025-06-08 19:53 | XMS RPT_ITS | CCD ---
Author Organization [facility]ini[facility] Care Team Providers Care Electronics Specialist Name Role Phone TODD DONGLEE Unavailable Unavailable MAMTA, LULI-CHI Unavailable Unavailable Mamta, Dr. Luli Chavarria Primary Care Provider Mamta, Dr. Luli Chavarria Referring Provider Dr. Luli Roca Chi Other Provider Dr. Elijah Reinoso Attending Provider MAMTA, ZABRINACHI Referring Unavailable HOWARD ABDALLA Attending Unavailable Mamta, Dr. Luli Chavarria Primary Care Provider Mamta, Dr. Luli Chavarria Referring Provider Dr. Clint Thomas Attending Provider Mamta MORENO, [employer] Primary Care Provider Howard Abdalla MD Unavailable Mamta MORENO, Dr. Luli Chavarria Primary Care Provider [phone] Mamta MORENO, Dr. Luli Chavarria Attending Provider [phone] Mamta MORENO, Dr. Luli Chavarria Referring Provider [phone] Mamta MORENO, Dr. Luli Chavarria Primary Care Provider [phone] Mamta MORENO, Dr. Luli Chavarria Attending Provider [phone] Mamta MORENO, Dr. Luli Chavarria Referring Provider Lui MORENO, Dr. Michael Caceres Attending Provider Lui MORENO, Dr. Michael Caceres Referring Provider Mamta, Luli Chi Primary Care Unavailable Mamta, Luli Chi Attending Unavailable Mamta, Luli Chi Referring Unavailable Mamta, Luli Chi Attending Unavailable Mamta, Luli Chi Referring Unavailable Mamat, Luli Chi Primary Care Unavailable Mamta, Luli Chi Attending Unavailable Mamta, Luli Chi Referring Unavailable Mamta, Luli Chi Primary Care Unavailable Mamta, Luli Chi Attending Unavailable Mamta, Luli Chi Referring Unavailable Mamta, Luli Chi Primary Care Unavailable Mamta, Luli Chi Primary Care Unavailable Gabe Cowart Attending Unavailable Michael Poe Attending Unavailable Michael Poe Referring Unavailable Mamta, Luli Chi Primary Care Unavailable Mamta, Luli Chi Attending Unavailable Mamta, Luli Chi Referring Unavailable Mamta, Luli Chi Primary Care Unavailable Michael Poe Attending Unavailable LuiMichael mcfarlane Referring Unavailable Mamta, Luli Chi Primary Care Unavailable Medications Current Medications Medication Drug Class(es) [...] noon and 300 mg before bedtime. Active losartan potassium 50 mg oral tablet (1 source) Angiotensin 2 Receptor Gema Start: 05-27-2025 take 1 tablet by mouth once daily Losartan 50 mg tablet Active 50 mg PO DAILY May 27, 2025 12:00am oxyCODONE hydrochloride 5 mg oral tablet (1 source) Opioid Agonist Start: 06-03-2025 take 1 tablet by mouth every six hours as needed for pain Oxycodone 5 mg tablet Active 5 mg PO EVERY 6 HOURS as needed for pain 14 3 0 June 03, 2025 Calculus of kidney Calculus of kidney pravastatin sodium 10 mg oral tablet (15 sources) HMG-CoA Reductase Inhibitor Start: 05-27-2025 take 1 tablet by mouth at bedtime Pravastatin 10 mg tablet Active 10 mg PO AT BEDTIME May 27, 2025 12:00am Start: 04-21-2018 End: 04-04-2023 take 1 tablet by mouth at bedtime Pravastatin 40 MG tablet Discontinued 40 mg PO AT BEDTIME April 21, 2018 12:00am April 04, 2023 10:47am tamsulosin hydrochloride 0.4 mg oral capsule (7 sources) alpha-Adrenergic Gema Start: 04-04-2023 take 1 capsule by mouth once daily Tamsulosin 0.4 mg capsule Active 0.4 mg PO DAILY April 04, 2023 12:00am Completed/Discontinued Medications Medication Drug Class(es) Dates Sig (Normalized) Sig (Original) aspirin 325 mg oral tablet (6 sources) Platelet Aggregation Inhibitor, Nonsteroidal Anti-inflammatory Drug Start: 01-20-2024 End: 05-27-2025 take 1 tablet by mouth every six hours Aspirin 325 mg tablet Discontinued 325 mg PO EVERY 6 HOURS January 20, 2024 12:00am May 27, 2025 12:43pm cephalexin 500 mg oral capsule (6 sources) Cephalosporin Antibacterial Start: 01-20-2024 End: 01-27-2024 take 1 capsule by mouth every hour Cephalexin 500 mg capsule Discontinued 500 mg PO Q12H 14 7 0 January 20, 2024 12:00am January 26, 2024 12:00am January 27, 2024 12:05am Take one capsule by mouth every twelve hours ciprofloxacin 500 mg oral tablet (14 sources) Quinolone Antimicrobial Start: 04-25-2018 End: 04-04-2023 take 1 tablet by mouth twice daily Ciprofloxacin Hcl 500 MG tablet Discontinued 500 mg PO TWICE A DAY 14 0 April 25, 2018 12:00am April 04, 2023 10:47am hydroCHLOROthiazide 12.5 mg / lisinopril 10 mg oral tablet (14 sources) Thiazide Diuretic, Angiotensin Converting Enzyme Inhibitor Start: 04-21-2018 End: 04-04-2023 take 1 tablet by mouth once daily Lisinopril-Hydroc hlorothiazide (Zestoretic 10/12.5 Tablet) 1 TABLET tablet Discontinued 1 {tbl} PO DAILY April 21, 2018 12:00am April 04, 2023 10:47am pregabalin 75 mg oral capsule (6 sources) Start: 01-20-2024 End: 05-27-2025 take 1 capsule by mouth once daily Pregabalin 75 mg capsule Discontinued 75 mg PO DAILY January 20, 2024 12:00am May 27, 2025 12:43pm Problems Problem Classification Problem Date Documented Da te Episodic/Chronic Calculus of urinary tract (3 sources) Kidney stone; Translations: [Calculus of kidney] Onset: 06-03-2025 06-03-2025 Episodic Disorders of lipid metabolism (1 source) Hyperlipidemia, unspecified; Translations: [Hyperlipidemia, unspecified] Onset: 04-14-2025 Chronic Essential hypertension (1 source) Essential (primary) hypertension; Translations: [Essential (primary) hypertension] Onset: 03-01-2025 Chronic Hyperplasia of prostate (4 sources) Benign prostatic hyperplasia with lower urinary tract symptoms; Translations: [Benign prostatic hypertrophy with outflow obstruction] Onset: 09-06-2022 Chronic Osteoarthritis (1 source) Primary osteoarthritis, left shoulder; Translations: [Primary osteoarthritis, left shoulder] Onset: 06-08-2024 Chronic Other aftercare (1 source) Encounter for follow-up examination after completed treatment for conditions other than malignant neoplasm; Translations: [Follow-up examination, following other surgery] 02-19-2024 Episodic Other diseases of kidney and ureters (2 [...] to arterial insufficiency] Onset: 09-06-2022 05-03-2024 Chronic Other skin disorders (6 sources) Sebaceous cyst of skin; Translations: [Sebaceous cyst] 02-09-2024 Episodic Comment on above: Patient is a 73-year -old male with likely sebaceous cyst of the lower thoracic/upper lumbar spine region in the midline. He has had recurrent issues with inflammation/infection and wishes to have it excised. His PCP, Dr. Roca prescribed antibiotics which has resulted in significant improvement of the discomfort but he wishes to have it removed so that he can avoid issues in the future. Today patient underwent excision of the area in question with immediate linear repair. There was some mild bleeding during the case but otherwise it proceeded uneventfully. The area of excision included all soft tissue down to the muscular fascia directly deep to the area of patient's concern in an effort to try to fully extirpate any evidence of patient's epidermal inclusion cyst. Patient was advised to limit his activity over the next couple of days and will return for a wound check visit. Other skin disorders (4 sources) Sebaceous cyst; Translations: [Sebaceous cyst] 01-20-2024 Episodic Spondylosis; intervertebral disc disorders; other back problems (7 sources) Spinal stenosis of lumbar region; Translations: [Spinal stenosis, lumbar region without neurogenic claudication] 04-04-2023 Episodic Unclassified (6 sources) Cyst ; Translations: [Cyst] 01-20-2024 Results Test Name Value Interpretation Reference Range Facility Abdomen Single Viewon 2024 Abdomen Single View [facility] Imaging Services [address] [place] [address] Abdomen Single View MR#: [id number] Acct: [id number] Name: RUBEN REED Rep #: [id number] : 1950 M 75 From: Shon santana MD PCP: Dr. Luli Roca MD Status: [facility] Study: Abdomen Single View Date of Exam: 06/03/25 Exam# [id number] Ordering Dr: Michael Poe MD PROCEDURE: ABDOMEN SINGLE VIEW 06/03/2025 REASON FOR EXAM: KIDNEY STONE TECHNIQUE: ABDOMEN SINGLE VIEW COMPARISON: Prior CT scan of the abdomen dated May 23, 2025. FINDINGS: Bowel gas: Fecal material is seen throughout the colon. Calcifications: 7 mm calcification overlying the lower pole calyx of the right kidney. Bones: There are degenerative changes of the spine. Status post bilateral hip replacement. Other: RAD/Abdomen Single View IMPRESSION: 7 mm calcification overlying the lower pole calyx of the right kidney. Reading Location: [place] [address] CC: Dr. Michael Poe MD; Dr. Luli Roca MD Movie Extra: Signed Normal [facility] Discharge Instructionon 05-20 Discharge Instruction [facility] Medical Records Department [address] [place] [address] Instructions for Home/Discharge Instructions 06/03/25 1227 MR#: [id number] Acct: [id number] Name: RUBEN REED Rep #: [id number] : 1950 75 From: Michael Poe MD PCP: Dr. Luli Roca MD Status:REG SDC Discharge Instructions DC O2, CPAP, BIPAP needs Home O2 Discharge instructions: No Dressing / Incision Discharge Activity: Return to Normal Activity and May Not Drive (while taking narcotic pain medications.) Dressing / Incision Call your doctor if you observe: Fever of 101 or Higher Follow Up Care Please Follow Up With: Michael Poe MD When: Call [phone] for an appointment Test Results: Test results from this visit will be discussed in further detail at your follow-up appointment, if applicable. Discharge Plan Admission Primary Reason for Your Visit: right kidney stone Attending Provider: Michael Poe Primary Care Provider: Luli Roca Chi Instructions Print Language: [place] Discharge Orders/Prescriptions Prescriptions: New oxycodone 5 mg tablet 5 mg PO Q6H PRN (Reason: pain) 3 Days Qty: 14 0RF No Action tamsulosin 0.4 mg capsule 0.4 mg PO DAILY losartan 50 mg tablet 50 mg PO DAILY pravastatin 10 mg tablet 10 mg PO QHS Referrals / Follow Up: Luli Roca Chi, MD [Primary Care Provider] - Disposition Disposition (needs filled in before D/C Order can be placed): Home, Self Care 06/03/25 1227 Michael Poe MD CC: Dr. Luli Roca MD Signed [facility] MR/POSTOP.[facility] 06-03-2025 MR/POSTOP.[facility] Medical Records Department [address] [place] [address] Anesthesia Postop Eval I 06/03/25 1311 MR#: [id number] Acct: [id number] Name: RUBEN REED Rep #: [id number] : 1950 75 From: Latrice Gunn CRNA PCP: Dr. Luli Roca MD Status:REG SDC Y Race: C Location: [place] [address] Anesthesia: Postop Eval I Current Vital Signs Temperature: 97.1 F Pulse Rate: 56 Blood Pressure: 141/70 Respiratory Rate: 12 Pulse Ox: 98 Assessment Airway patent: Yes Spontaneous unlabored respirations: Yes nausea: No Vomiting: No Anesthesia Complication: No Fluid Hydration Crystalloid volume administer (ml): 800 Total IV fluid infused: 800 Progress Note Anesthesia document: Postop Eval 1 completed: Yes 06/03/25 1311 Date Latrice Gunn OUTPATIENT SCHEDULER Cosigner Signature: Date CC: Signed Normal [facility] MR/[id number] 06-03-2025 MR/POSTOPAN2 [facility] Medical Records Department [address] [place] [address] Anesthesia Postop Eval II 06/03/25 1343 MR#: [id number] Acct: [id number] Name: RUBEN REED Rep #: [id number] : 1950 75 From: Max Zelaya MD PCP: Dr. Luli Roca MD Status:REG [facility] Y Race: C Location: [place] [address] Anesthesia Postop Eval I Sum Postop Eval Completion status Anesthesia document: Postop Eval 1 completed: Yes Anesthesia Postop Eval I Summary Anesthesia Postop Eval I Summary: Anesthesia Postop Eval I: Assessment Summary Airway patent Yes 06/03/25 13:11 OUTPATIENT SCHEDULER.KCRO Spontaneous unlabored Yes 06/03/25 13:11 OUTPATIENT SCHEDULER.KCRO respirations Mental status nausea No 06/03/25 13:11 OUTPATIENT SCHEDULER.KCRO Vomiting No 06/03/25 13:11 OUTPATIENT SCHEDULER.KCRO Anesthesia Postop Eval I: Fluid Summary Crystalloid volume administer 800 06/03/25 13:11 OUTPATIENT SCHEDULER.KCRO (ml) Colloids volume administered ( ml) Blood Product volume administered (ml) Total IV fluid infused 800 06/03/25 13:11 OUTPATIENT SCHEDULER.KCRO Anesthesia Postop Eval I: Summary Notes Anesthesia Complication No 06/03/25 13:11 OUTPATIENT SCHEDULER.KCRO Anesthesia Complication Comment: Post-operative progress note Anesthesia: Postop Eval II Evaluation Mental status: Awake and Calm Pain Level: 1 nausea: No Vomiting: No Complications Anesthesia Complication: No 06/03/25 1343 Date Max Mason Signature: Date CC: Signed Normal [facility] Operative Reporton 5 Operative Report [facility] Medical Records Department [address] [place] [address] Operative Report 06/03/25 1227 MR#: [id number] Acct: [id number] Name: RUBEN REED Rep #: [id number] : 1950 75 From: Michael Poe MD PCP: Dr. Luli Roca MD Status:[facility] Location: [place] [address] Operative Report (Standard) Operative Information Date of Procedure: 06/03/25 Pre-Operative Diagnosis: Right kidney stone Post-Operative Diagnosis: The same Surgery/Procedure Performed: Cystoscopy right stent placement and right extracorporeal shockwave lithotripsy plastics supervisor: No Type of Anesthesia: General RN Documented Start/Stop Times: Operation Date: 06/03/25 11:25 Case Time Into Pre-Op 06/03/25 09:17 Out of Pre-Op 06/03/25 11:59 Anesthesia Start 06/03/25 12:02 Into Room 06/03/25 12:02 Procedure Start 06/03/25 12:20 Procedure Start Time: 12:02 Procedure Stop Time: 13:01 Select all DRAINS/GRAFTS/IMPLANTS that apply: Drains Drain details: 6 x 26 cm stent right Estimated Blood Loss: 0 Specimen collected: No Description of surgery: Patient presents to the hospital for treatment of a kidney stone with shockwave lithotripsy. In the preoperative area and x-ray was done to confirm the location of the stone. The x-ray was reviewed and the stone location was reviewed. In the preoperative setting I spoke with the patient regarding the treatment of the stone how the treatment would be conducted and the expectations after surgery. The patient understands there is a risk of bleeding and infection. Also discussed the very rare risk of hematoma or damage to the kidney. We also discussed the risk that the shockwave machine will fail to break the stone adequately and that the patient may need other surgical procedures. I also discussed the possibility that the patient may need a stent after the procedure. After reviewing the procedure with the patient, the patient is signed the consent form all the patient's questions were addressed and was taken back to the operating room for treatment of a kidney stone. Patient was taken back to the operating room, the patient was identified by the nursing staff, I identified the side of the treatment and the patient side of treatment had been marked by my initials. The patient underwent general anesthetic and was placed supine on the lithotripter table. I then used fluoroscopy to identify the stone on the right side. The urethra and genitals were prepped and draped in usual sterile fashion. Using a 21 [place]alan rigid cystourethroscope the entire length of the urethra was normal then went into the bladder. Identified the trigone the left and right ureteral orifice. I then cannulated the right ureteral orifice and advanced a wire up into the kidney. I then backloaded a 5 [place]alan open ended catheter over the wire and injected contrast to delineate the anatomy. After the retrograde was performed I then used fluoroscopic images and guidance to advanced a wire up into the kidney and over the 0.038 glidewire I advanced a 6 Guatemalan by 26 cm double pigtail stent. I then pulled the 0.038 Glidewire off and the stent coiled in the kidney bladder good position. The bladder was then drained. We confirmed the position of the stent by fluoroscopy. I then positioned the patient under the lithotripter and I used triangulation technique to identify the location of the stone and then I made sure that the stone was engaged in the F2 focal point of F2 Donier lithoprior machine. Once the patient was positioned appropriately and the stone was identified and placed in the F2 focal point of the lithotripter machine I then proceeded with shockwave lithotripsy. In the beginning the shockwave was delivered at a rate of 90 shocks per minute, anesthesia monitored the EKG for any ectopy. The power was slowly increased to 5 kV and subsequently at the 7 kV. I then proceeded with the treatment with shock wave therapy and around during the treatment to make sure the stone stayed in the F2 focal point during the entire treatment and after 3000 shockwaves were delivered to the stone under fluoroscopic guidance the treatment was completed. The patient was given instructions to call the office to make an a follow- up appointment with an x-ray to evaluate the success of the treatment, patient understands that its possible the stones may need another procedure. At this point the patient's anesthetic was reversed patient was extubated and taken back to the PACU in stable condition. Surgical Findings: No stone in distal ureter right stent in place and right kidney stone treated with shockwave lithotripsy Complications Complications: No Admit VTE Documentation VTE Present on Admission: No VTE Mechan Device Prophylaxis: SCD's VTE Pharm Prophylaxis ordered?: No 06/03/25 1301 Cosigner Signature (if applicabl (more content not included)... Normal [facility] Urine Cultureon 05-24-2025 URC Culture exhibits no growth. Normal [facility] Comment on above: Performed By: #### M 100.2200, L100.0100, L501.9940, L500.2500 ####[facility] [address] [facility] [place], [address] Abdomen/Pelvis without Conto n 05-23-2025 Abdomen/Pelvis without Cont [facility] Imaging Services [address] [place] [address] Abdomen/Pelvis without Cont MR#: [id number] Acct: [id number] Name: RUBEN REED Rep #: [id number] : 1950 M 75 From: Jacqueline Sanders MD PCP: Dr. Luli Roca MD Status: REG CLI Study: Abdomen/Pelvis without Cont Date of Exam: 02/11 Exam# [id number] Ordering Dr: Luli Roca MD PROCEDURE: ABDOMEN/PELVIS WITHOUT CONT 05/23/2025 REASON FOR EXAM: CALCULUS OF KIDNEY TECHNIQUE: ABDOMEN/PELVIS WITHOUT CONT Noncontrast technique limits evaluation of the abdominal and pelvic viscera. Coronal and Sagittal reconstruction series were provided. One or more dose reduction techniques were used (e.g., Automated exposure control, adjustment of the mA and/or kV according to patient size, use of iterative reconstruction technique). RADIATION DOSE SUMMARY: CTDlvol: 16.04 mGy DLP: 822.07 mGycm COMPARISON: None. FINDINGS: Lung bases: Clear. Atherosclerotic calcifications of the coronary arteries. Liver: Unremarkable. Gallbladder: Cholelithiasis with no evidence of acute cholecystitis. Spleen: Unremarkable. Pancreas: Unremarkable. Adrenals: Unremarkable. Kidneys: A 1 cm stone at the lower pole of the right kidney. An 8 mm stone at the right ureteral- bladder junction causing moderate right hydroureteronephrosis. Limited evaluation due to streak artifact from bilateral hip replacement. Left extrarenal pelvis versus narrowing of the left ureteropelvic junction.. Bladder: Lobulated contour of the bladder indicating chronic outlet obstruction. Reproductive Organs: Unremarkable. Bowel: No bowel wall thickening. No bowel obstruction. Appendix: Unremarkable. Lymph nodes: No lymphadenopathy. Vasculature: Atherosclerotic calcifications of the aorta and iliac arteries. No aneurysm. Peritoneum / Retroperitoneum: No free air or free fluid. Bones: No acute bony abnormalities. Multilevel degenerate changes of the lumbar spine. Status post total bilateral hip replacement. CT/Abdomen/Pelvis without Cont IMPRESSION: A 1 cm stone at the lower pole of the right kidney. An 8 mm stone at the right ureteral-bladder junction causing moderate right hydroureteronephrosis. Limited evaluation due to streak artifact from bilateral hip replacement. Left extrarenal pelvis versus narrowing of the left ureteropelvic junction. Lobulated contour of the bladder indicating chronic outlet obstruction. Reading Location: [facility] CC: Dr. Luli Roca MD Movie Extra: Signed Normal [facility] Absolute lymphocyte countOrd ered By: Luli Roca on 05-23-2025 Lymphocytes Auto (Unsp spec) [#/Vol] 1.96 10*3/uL 0.83-4.51 [facility] Absolute neutrophil countOrd ered By: Luli Roca on 05-23-2025 Neutrophils (Bld) [#/Vol] 3.2 10*3/uL 2.0-7.7 [facility] Anion gap in Serum or Plasma Ordered By: Luli Roca on 05-23-2025 Anion gap [Moles/Vol] 14 mmol/L 5-15 [facility] Automated lymphocyte count a s percentage of total leukocytesOrdered By: Luli oRca on 05-23-2025 Lymphocytes/100 WBC Auto (Unsp spec) 33.4 % 19-41 [facility] BUN/creatinine ratioOrdered By: Luli Roca on 05-23-2025 Urea nitrogen/Creatinine [Mass ratio] 20.3 mg/mg High 10-20 [facility] Basic Metabolic Profile (BMP )on 05-23-2025 BUN/CRE 20.3 RATIO High - [facility] Comment on above: Performed By: #### M 100.2200, L100.0100, L501.9940, L500.2500 ####[facility] [address] [place], [address] Calcium [Mass/Vol] 9.7 mg/dL Normal 7.6-11.0 [facility] Comment on above: Performed By: #### M 100.2200, L100.0100, L501.9940, L500.2500 ####[facility] [address] [place], [address] Chloride [Moles/Vol] 102 mmol/L Normal 98-108 [facility] Comment on above: Performed By: #### M 100.2200, L100.0100, L501.9940, L500.2500 ####[facility] [address] [place], [address] CO2 [Moles/Vol] 21.1 mmol/L Normal 21.0-32.0 [facility] Comment on above: Performed By: #### M 100.2200, L100.0100, L501.9940, L500.2500 ####[facility] [address] [place], [address] Creatinine [Mass/Vol] 0.80 mg/dL Normal 0.70-1.20 [facility] Comment on above: Performed By: #### M 100.2200, L100.0100, L501.9940, L500.2500 ####[facility] [address] [place], [address] GAP 14 Normal 5-15 [facility] Comment on above: Performed By: #### M 100.2200, L100.0100, L501.9940, L500.2500 ####[facility] [address] [place], [address] GFR/1.73 sq M.predicted among non-blacks MDRD (S/P/Bld) [Vol rate/Area] 93 mL/min/{1.73_m2} Normal >60 [facility] Comment on above: Result Comment: mL/m in/1.73m2 CKD-EPI Creatinine Equation (2020) Performed By: #### M 100.2200, L100.0100, L501.9940, L500.2500 ####[facility] [address] [place], [address] Glucose [Mass/Vol] 97 mg/dL Normal 70-99 [facility] Comment on above: Performed By: #### M 100.2200, L100.0100, L501.9940, L500.2500 ####[facility] [address] [place], [address] Potassium [Moles/Vol] 4.4 mmol/L Normal 3.3-5.1 [facility] Comment on above: Result Comment: Hemo lysis present, Results??could be affected. ?? Performed By: #### M 100.2200, L100.0100, L501.9940, L500.2500 ####[facility] [address] [place], [address] Sodium [Moles/Vol] 137 mmol/L Normal 133-145 [facility] Comment on above: Performed By: #### M 100.2200, L100.0100, L501.9940, L500.2500 ####[facility] [address] [place], [address] Urea nitrogen [Mass/Vol] 16 mg/dL Normal 4-19 [facility] Comment on above: Performed By: #### M 100.2200, L100.0100, L501.9940, L500.2500 ####[facility] [address] [place], [address] Basophil percentageOrdered B y: Luli Roca on 05-23-2024 Basophils/100 WBC (Bld) 0.7 % 0-1 [facility] CBC W/Diff, Automatedon Absolute Lymph 1.96 X10 3/uL Normal 0.83-4.51 [facility] Comment on above: Performed By: #### M 100.2200, L100.0100, L501.9940, L500.2500 ####[facility] [address] [place], [address] Absolute Neut 3.2 X10 3/uL Normal 2.0-7.7 [facility] Comment on above: Performed By: #### M 100.2200, L100.0100, L501.9940, L500.2500 ####[facility] [address] [place], [address] Basophils/100 WBC (Bld) 0.7 % Normal 0-1 [facility] Comment on above: Performed By: #### M 100.2200, L100.0100, L501.9940, L500.2500 ####[facility] [facility] [address] [place], [address] Eosinophils/100 WBC (Bld) 2.7 % Normal 0-5 [facility] Comment on above: Performed By: #### M 100.2200, L100.0100, L501.9940, L500.2500 ####[facility] [address] [place], [address] Erythrocyte distribution width (RBC) [Ratio] 12.7 % Normal 11.6-14.6 [facility] Comment on above: Performed By: #### M 100.2200, L100.0100, L501.9940, L500.2500 ####[facility] [address] [place], [address] Hematocrit (Bld) [Volume fraction] 43.2 % Normal 40-54 [facility] Comment on above: Performed By: #### M 100.2200, L100.0100, L501.9940, L500.2500 ####[facility] [address] [place], [address] Hemoglobin (Bld) [Mass/Vol] 14.9 g/dL Normal 13.0-16.5 [facility] Comment on above: Performed By: #### M 100.2200, L100.0100, L501.9940, L500.2500 ####[facility] [address] [place], [address] IG% 0.200 Normal 0.0-0.9 [facility] Comment on above: Result Comment: IG% - Immature Granulocytes (promyelocytes, myelocytes and metamyelocytes) > 1% indicates that a LEFT SHIFT is Present. Performed By: #### M 100.2200, L100.0100, L501.9940, L500.2500 ####[facility] [address] [place], [address] Lymphocytes/100 WBC (Bld) 33.4 % Normal 19-41 [facility] Comment on above: Performed By: #### M 100.2200, L100.0100, L501.9940, L500.2500 ####[facility] [address] [place], [address] MCH (RBC) [Entitic mass] 30.5 pg Normal 27.0-32.0 [facility] Comment on above: Performed By: #### M 100.2200, L100.0100, L501.9940, L500.2500 ####[facility] [address] [place], [address] MCHC (RBC) [Mass/Vol] 34.5 g/dL Normal 32-36 [facility] Comment on above: Performed By: #### M 100.2200, L100.0100, L501.9940, L500.2500 ####[facility] [address] [place], [address] MCV (RBC) [Entitic vol] 88.3 fL Normal 80-94 [facility] Comment on above: Performed By: #### M 100.2200, L100.0100, L501.9940, L500.2500 ####[facility] [address] [place], [address] Monocytes/100 WBC (Bld) 7.8 % Normal 0-10 [facility] Comment on above: Performed By: #### M 100.2200, L100.0100, L501.9940, L500.2500 ####[facility] [address] [place], [address] Neutrophils/100 WBC (Bld) 55.2 % Normal 47-70 [facility] Comment on above: Performed By: #### M 100.2200, L100.0100, L501.9940, L500.2500 ####[facility] [address] [place], [address] Nucleated RBC (Bld) [#/Vol] 0 10*3/uL Normal 0-5 [facility] Comment on above: Performed By: #### M 100.2200, L100.0100, L501.9940, L500.2500 ####[facility] [address] [place], [address] Platelet mean volume (Bld) [Entitic vol] 9.8 fL Normal 6.2-12.0 [facility] Comment on above: Performed By: #### M 100.2200, L100.0100, L501.9940, L500.2500 ####[facility] [address] [place], [address] Platelets (Bld) [#/Vol] 200 10*3/uL Normal 150-450 [facility] Comment on above: Performed By: #### M 100.2200, L100.0100, L501.9940, L500.2500 ####[facility] [address] [place], [address] RBC (Bld) [#/Vol] 4.89 10*6/uL Normal 4.6-6.2 [facility] Comment on above: Performed By: #### M 100.2200, L100.0100, L501.9940, L500.2500 ####[facility] [address] [place], [address] RDW SD 41.1 fl Normal 35.1-43.9 [facility] Comment on above: Performed By: #### M 100.2200, L100.0100, L501.9940, L500.2500 ####[facility] [address] [place], [address] WBC (Bld) [#/Vol] 5.9 10*3/uL Normal 4.4-11.0 [facility] Comment on above: Performed By: #### M 100.2200, L100.0100, L501.9940, L500.2500 ####[facility] [address] [place], [address] Carbon dioxide, total [Moles /volume] in Central venous bloodOrdered By: Luli Roca on 05-23-2025 CO2 [Moles/Vol] 21.1 mmol/L 21.0-32.0 [facility] Chloride assayOrdered By: Jake Roca on 05-23-2025 Chloride [Moles/Vol] 102 mmol/L 98-108 [facility] Eosinophil percentageOrdered By: Luli Roca 05-23-2025 Eosinophils/100 WBC (Bld) 2.7 % 0-5 [facility] Erythrocyte distribution wid th ratioOrdered By: Luli Roca 05-23-2025 Erythrocyte distribution width (RBC) [Ratio] 12.7 % 11.6-14.6 [facility] Erythrocyte distribution wid th standard deviationOrdered By: Luli Roca 05-23-2025 Erythrocyte distribution width (RBC) [Ratio] 41.1 fl 35.1-43.9 [facility] Glomerular filtration rate ( GFR) estimation/1.73 sq m using serum, plasma, or whole bOrdered By: Luli Roca 05-23-2025 GFR/1.73 sq M.predicted among non-blacks MDRD (S/P/Bld) [Vol rate/Area] 93 mL/min/{1.73_m2} >60 [facility] Comment on above: mL/min/1.73m2 CKD-EP I Creatinine Equation (2020) Hematocrit Auto (Bld) [Volum e fraction]Ordered By: Luli Roca 05-23-2025 Hematocrit (Bld) [Volume fraction] 43.2 % 40-54 [facility] Hemoglobin measurementOrdere d By: Luli Roca 05-23-2025 Hemoglobin (Bld) [Mass/Vol] 14.9 g/dL 13.0-16.5 [facility] Immature granulocytes/100 WB C Auto (Bld)Ordered By: Luli Roca 05-23-2025 Immature granulocytes/100 WBC (Bld) 0.200 % 0.0-0.9 [facility] Comment on above: IG% - Immature Granu locytes (promyelocytes, myelocytes and metamyelocytes) > 1% indicates that a LEFT SHIFT is Present. MCV (mean corpuscular volume ) determinationOrdered By: Luli Roca 05-23-2025 MCV (RBC) [Entitic vol] 88.3 fL 80-94 [facility] Mean corpuscular hemoglobin (MCH) determinationOrdered By: Luli Roca on 05-23-2025 MCH (RBC) [Entitic mass] 30.5 pg 27.0-32.0 [facility] Mean corpuscular hemoglobin concentration (MCHC) determinationOrdered By: Luli Roca on 05-23-2025 MCHC (RBC) [Mass/Vol] 34.5 g/dL 32-36 [facility] Mean platelet volume determi nationOrdered By: Luli Roca on 05-23-2025 Platelet mean volume (Bld) [Entitic vol] 9.8 fL 6.2-12.0 [facility] Monocyte percentageOrdered B y: Luli Roca on 05-23-2025 Monocytes/100 WBC (Bld) 7.8 % 0-10 [facility] Neutrophil percentageOrdered By: Luli Roca on 05-23-2025 Neutrophils/100 WBC (Bld) 55.2 % 47-70 [facility] Nucleated red blood cell per centageOrdered By: Luli Roca on 05-23-2025 Nucleated RBC/100 WBC (Bld) [Ratio] 0 % 0-5 [facility] PSA,Total- Diagnosticon 08-0 PSA, DIAGNOSTIC 0.09 ng/mL Normal 0.00-4.00 [facility] Comment on above: Result Comment: This test was performed using the [employer] tPSA method. Measured values of a patient??sample can vary depending on the testing procedure used. PSA values determined on patient samples by different testing procedures cannot be used interchangeably. If there is a change in PSA assays while monitoring therapy, sequential testing should be performed to confirm baseline values. Performed By: #### M 100.2200, L100.0100, L501.9940, L500.2500 ####[facility] [address] [place], [address] Platelet countOrdered By: Jake Roca on 05-23-2025 Platelets (Bld) [#/Vol] 200 10*3/uL 150-450 [facility] Potassium measurement (mass/ volume)Ordered By: Luli Roca on 05-23-2025 Potassium (Unsp spec) [Mass/Vol] 4.4 mmol/L 3.3-5.1 [facility] Comment on above: Hemolysis present, R esults could be affected. RBC Auto (Bld) [#/Vol]Ordere d By: Luli Roca on 05-23-2025 RBC (Bld) [#/Vol] 4.89 10*6/uL 4.6-6.2 [facility] Serum creatinine measurement (mass/volume)Ordered By: Luli Roca on 05-23-2025 Creatinine [Mass/Vol] 0.80 mg/dL 0.70-1.20 [facility] Serum glucose measurement (m ass/volume)Ordered By: Luli Roca on 05-23-2025 Glucose [Mass/Vol] 97 mg/dL 70-99 [facility] Serum or plasma calcium charmaine urement (mass/volume)Ordered By: Luli Roca on 05-23-2025 Calcium [Mass/Vol] 9.7 mg/dL 7.6-11.0 [facility] Serum or plasma urea nitroge n measurement (mass/volume)Ordered By: Luli Roca on 05-23-2025 Urea nitrogen [Mass/Vol] 16 mg/dL 4-19 [facility] Sodium levelOrdered By: Luli Roca on 05-23-2025 Sodium [Moles/Vol] 137 mmol/L 133-145 [facility] Urine cultureOrdered By: Luli Roca on 05-23-2025 Bacteria identified Cx Nom (U) Culture exhibits no growth. [facility] White blood cell (WBC) count Ordered By: Luli Roca on 05-23-2025 WBC (Bld) [#/Vol] 5.9 10*3/uL 4.4-11.0 [facility] Calculated very low density lipoprotein (VLDL) cholesterol measurementOrdered By: Luli Roca on 04-11-2025 Calculated very low density lipoprotein (VLDL) cholesterol measurement 47 mg/dL High 5-40 [facility] LDL calc ser/plasOrdered By: Luli Roca on 04-11-2025 Cholesterol in LDL [Mass/Vol] 122 mg/dL [facility] Comment on above: Dqytbfflzd=414-496 m g/dL & Higher Vujt=806 mg/dL or greater Lipid Profileon 04-11-2025 CHOL:HDL 3.80 Normal [facility] Comment on above: Performed By: #### L 500.4100 #### [facility] [address] [place], [address] Cholesterol [Mass/Vol] 229 mg/dL High <=200 [facility] Comment on above: Result Comment: Chol esterol level, Desirable <200 mg/dL Borderline high cholesterol 200-239 mg/dL High cholesterol >=240 mg/dL Recommendations of the NCEP Adult Treatment Panel for the following risk-cutoff thresholds for the [place] population. Performed By: #### L 500.4100 #### [facility] [address] [place], [address] Cholesterol in HDL [Mass/Vol] 60 mg/dL Normal [facility] Comment on above: Result Comment: Zena onal Cholesterol Education Program (NCEP) guidelines: <40 mg/dL: Low HDL-cholesterol (major risk factor for CHD) >= 60 mg/dL: High HDL-cholesterol (negative risk factor for CHD) HDL-cholesterol is affected by a number of factors, e.g. smoking, exercise, hormones, sex and age. Performed By: #### L 500.4100 #### [facility] [address] [place], [address] Cholesterol in LDL [Mass/Vol] 122 mg/dL Normal [facility] Comment on above: Result Comment: Bord mlvego=266-704 mg/dL Higher Pnss=985 mg/dL or greater Performed By: #### L 500.4100 #### [facility] [address] [place], [address] Cholesterol in VLDL [Mass/Vol] 47 mg/dL High 5-40 [facility] Comment on above: Performed By: #### L 500.4100 #### [facility] [address] [place], [address] Triglyceride [Mass/Vol] 233 mg/dL High [facility] Comment on above: Result Comment: The drugs N-Acetylcysteine and Metamizole may falsely depress this assay. Normal range: <150 mg/dL Borderline High: 150-199 mg/dL High: 200-499 mg/dL Very High: >500 mg/dL Performed By: #### L 500.4100 #### [facility] [address] [place], [address] Screening total cholesterol/ high density lipoprotein (HDL) cholesterol ratioOrdered By: Luli Roca on 04-11-2025 Cholesterol.total/Maria Dolores sterol in HDL [Mass ratio] 3.80 {ratio} [facility] Serum or plasma cholesterol in HDL measurement (mass/volume)Ordered By: Luli Roca on 04-11-2025 Cholesterol in HDL [Mass/Vol] 60 mg/dL >40 [facility] Comment on above: National Cholesterol Education Program (NCEP) guidelines:<40 mg/dL: Low HDL-cholesterol (major risk factor for CHD)>= 60 mg/dL: High HDL-cholesterol (negative risk factor for CHD)HDL-cholesterol is affected by a number of factors, e.g. smoking, exercise, hormones, sex and age. Serum or plasma cholesterol measurement (mass/volume)Ordered By: Luli Roca on 04-11-2025 Cholesterol [Mass/Vol] 229 mg/dL High <201 [facility] Comment on above: Cholesterol level, D esirable <200 mg/dLBorderline high cholesterol 200-239 mg/dLHigh cholesterol >=240 mg/dLRecommendations of the NCEP Adult Treatment Panel for the following risk-cutoff thresholds for the [place] population. Triglycerides measurementOrd ered By: Luli Roca on 04-11-2025 Triglyceride [Mass/Vol] 233 mg/dL High <199 [facility] Comment on above: The drugs N-Acetylcy steine and Metamizole may falsely depress this assay. Normal range: <150 mg/dLBorderline High: 150-199 mg/dLHigh: 200-499 mg/dLVery High: >500 mg/dL Absolute lymphocyte countOrd ered By: Luli Roca on 02-24-2025 Lymphocytes Auto (Unsp spec) [#/Vol] 2.23 10*3/uL 0.83-4.51 [facility] Absolute neutrophil countOrd ered By: Luli Roca on 05-08-2025 Neutrophils (Bld) [#/Vol] 3.4 10*3/uL 2.0-7.7 [facility] Anion gap in Serum or Plasma Ordered By: Luli Roca on 02-24-2025 Anion gap [Moles/Vol] 12 mmol/L 5- [facility] Automated lymphocyte count a s percentage of total leukocytesOrdered By: Luli Lockok on 02-24-2025 Lymphocytes/100 WBC Auto (Unsp spec) 35.3 % [facility] BUN/creatinine ratioOrdered By: Luli Mamta on 02-24-2025 Urea nitrogen/Creatinine [Mass ratio] 13.9 mg/mg 10- [facility] Basophil percentageOrdered B y: uLli Mamta on 02-24-2025 Basophils/100 WBC (Bld) 0.5 % 0-1 [facility] Bilirubin, totalOrdered By: Luli Roca on 02-24-2025 Bilirubin [Mass/Vol] 0.54 mg/dL 0.00-1.30 [facility] CBC W/Diff, Automatedon Absolute Lymph 2.23 X10 3/uL Normal 0.83-4.51 [facility] Comment on above: Performed By: #### L 100.0100, L500.4050, L506.1001, L501.9520, L500.4100 #### [facility] [address] [place], [address] Absolute Neut 3.4 X10 3/uL Normal 2.0-7.7 [facility] Comment on above: Performed By: #### L 100.0100, L500.4050, L506.1001, L501.9520, L500.4100 #### [facility] [address] [place], [address] Basophils/100 WBC (Bld) 0.5 % Normal 0-1 [facility] Comment on above: Performed By: #### L 100.0100, L500.4050, L506.1001, L501.9520, L500.4100 #### [facility] [address] [place], [address] Eosinophils/100 WBC (Bld) 3.0 % Normal 0-5 [facility] Comment on above: Performed By: #### L 100.0100, L500.4050, L506.1001, L501.9520, L500.4100 #### [facility] [address] [place], [address] Erythrocyte distribution width (RBC) [Ratio] 12.8 % Normal 11.6-14.6 [facility] Comment on above: Performed By: #### L 100.0100, L500.4050, L506.1001, L501.9520, L500.4100 #### [facility] [address] [place], [address] Hematocrit (Bld) [Volume fraction] 43.3 % Normal 40-54 [facility] Comment on above: Performed By: #### L 100.0100, L500.4050, L506.1001, L501.9520, L500.4100 #### [facility] [address] [place], [address] Hemoglobin (Bld) [Mass/Vol] 15.3 g/dL Normal 13.0-16.5 [facility] Comment on above: Performed By: #### L 100.0100, L500.4050, L506.1001, L501.9520, L500.4100 #### [facility] [address] [place], [address] IG% 0.300 Normal 0.0-0.9 [facility] Comment on above: Result Comment: IG% - Immature Granulocytes (promyelocytes, myelocytes and metamyelocytes) > 1% indicates that a LEFT SHIFT is Present. Performed By: #### L 100.0100, L500.4050, L506.1001, L501.9520, L500.4100 #### [facility] [address] [place], [address] Lymphocytes/100 WBC (Bld) 35.3 % Normal 19-41 [facility] Comment on above: Performed By: #### L 100.0100, L500.4050, L506.1001, L501.9520, L500.4100 #### [facility] [address] [place], [address] MCH (RBC) [Entitic mass] 30.9 pg Normal 27.0-32.0 [facility] Comment on above: Performed By: #### L 100.0100, L500.4050, L506.1001, L501.9520, L500.4100 #### [facility] [address] [place], [address] MCHC (RBC) [Mass/Vol] 35.3 g/dL Normal 32-36 [facility] Comment on above: Performed By: #### L 100.0100, L500.4050, L506.1001, L501.9520, L500.4100 #### [facility] [address] [place], [address] MCV (RBC) [Entitic vol] 87.5 fL Normal 80-94 [facility] Comment on above: Performed By: #### L 100.0100, L500.4050, L506.1001, L501.9520, L500.4100 #### [facility] [address] [place], [address] Monocytes/100 WBC (Bld) 7.4 % Normal 0-10 [facility] Comment on above: Performed By: #### L 100.0100, L500.4050, L506.1001, L501.9520, L500.4100 #### [facility] [address] [place], [address] Neutrophils/100 WBC (Bld) 53.5 % Normal 47-70 [facility] Comment on above: Performed By: #### L 100.0100, L500.4050, L506.1001, L501.9520, L500.4100 #### [facility] [address] [place], [address] Nucleated RBC (Bld) [#/Vol] 0 10*3/uL Normal 0-5 [facility] Comment on above: Performed By: #### L 100.0100, L500.4050, L506.1001, L501.9520, L500.4100 #### [facility] [address] [place], [address] Platelet mean volume (Bld) [Entitic vol] 9.8 fL Normal 6.2-12.0 [facility] Comment on above: Performed By: #### L 100.0100, L500.4050, L506.1001, L501.9520, L500.4100 #### [facility] [address] [place], [address] Platelets (Bld) [#/Vol] 197 10*3/uL Normal 150-450 [facility] Comment on above: Performed By: #### L 100.0100, L500.4050, L506.1001, L501.9520, L500.4100 #### [facility] [address] [place], [address] RBC (Bld) [#/Vol] 4.95 10*6/uL Normal 4.6-6.2 [facility] Comment on above: Performed By: #### L 100.0100, L500.4050, L506.1001, L501.9520, L500.4100 #### [facility] [address] [place], [address] RDW SD 40.7 fl Normal 35.1-43.9 [facility] Comment on above: Performed By: #### L 100.0100, L500.4050, L506.1001, L501.9520, L500.4100 #### [facility] [address] [place], [address] WBC (Bld) [#/Vol] 6.3 10*3/uL Normal 4.4-11.0 [facility] Comment on above: Performed By: #### L 100.0100, L500.4050, L506.1001, L501.9520, L500.4100 #### [facility] [address] [place], [address] Calculated very low density lipoprotein (VLDL) cholesterol measurementOrdered By: Luli Roca on 02-24-2025 Calculated very low density lipoprotein (VLDL) cholesterol measurement 51 mg/dL High 5-40 [facility] Carbon dioxide, total [Moles /volume] in Central venous bloodOrdered By: Luli Roca on 02-24-2025 CO2 [Moles/Vol] 24.0 mmol/L 21.0-32.0 [facility] Chloride assayOrdered By: Jake Roca on 02-24-2025 Chloride [Moles/Vol] 102 mmol/L 98-108 [facility] Comprehensive Metabolic Prof ilon 02-24-2025 Albumin [Mass/Vol] 4.2 g/dL Normal 3.4-4.8 [facility] Comment on above: Performed By: #### L 100.0100, L500.4050, L506.1001, L501.9520, L500.4100 ####[facility] [address] [place], [address] Albumin/Globulin [Mass ratio] 1.9 {ratio} Normal 0.9-2.4 [facility] Comment on above: Performed By: #### L 100.0100, L500.4050, L506.1001, L501.9520, L500.4100 ####[facility] [address] [place], [address] ALK PHOS 65 U/L Normal 40-129 [facility] Comment on above: Performed By: #### L 100.0100, L500.4050, L506.1001, L501.9520, L500.4100 ####[facility] [address] [place], [address] ALT [Catalytic activity/Vol] 22 U/L Normal <=46 [facility] Comment on above: Performed By: #### L 100.0100, L500.4050, L506.1001, L501.9520, L500.4100 ####[facility] [address] [place], [address] AST [Catalytic activity/Vol] 23 U/L Normal <=37 [facility] Comment on above: Result Comment: Hemo lysis present, Results??could be affected. ?? Performed By: #### L 100.0100, L500.4050, L506.1001, L501.9520, L500.4100 ####[facility] [address] [place], [address] Bilirubin [Mass/Vol] 0.54 mg/dL Normal 0.00-1.30 [facility] Comment on above: Performed By: #### L 100.0100, L500.4050, L506.1001, L501.9520, L500.4100 ####[facility] [address] [place], [address] BUN/CRE 13.9 RATIO Normal 10-20 [facility] Comment on above: Performed By: #### L 100.0100, L500.4050, L506.1001, L501.9520, L500.4100 ####[facility] [address] [place], [address] Calcium [Mass/Vol] 9.5 mg/dL Normal 7.6-11.0 [facility] Comment on above: Performed By: #### L 100.0100, L500.4050, L506.1001, L501.9520, L500.4100 ####[facility] [address] [place], [address] Chloride [Moles/Vol] 102 mmol/L Normal 98-108 [facility] Comment on above: Performed By: #### L 100.0100, L500.4050, L506.1001, L501.9520, L500.4100 ####[facility] [address] [place], [address] CO2 [Moles/Vol] 24.0 mmol/L Normal 21.0-32.0 [facility] Comment on above: Performed By: #### L 100.0100, L500.4050, L506.1001, L501.9520, L500.4100 ####[facility] [address] [place], [address] Creatinine [Mass/Vol] 0.88 mg/dL Normal 0.70-1.20 [facility] Comment on above: Performed By: #### L 100.0100, L500.4050, L506.1001, L501.9520, L500.4100 ####[facility] [address] [place], [address] GAP 12 Normal 5-15 [facility] Comment on above: Performed By: #### L 100.0100, L500.4050, L506.1001, L501.9520, L500.4100 ####[facility] [address] [place], [address] GFR/1.73 sq M.predicted among non-blacks MDRD (S/P/Bld) [Vol rate/Area] 91 mL/min/{1.73_m2} Normal >60 [facility] Comment on above: Result Comment: mL/m in/1.73m2 CKD-EPI Creatinine Equation (2020) Performed By: #### L 100.0100, L500.4050, L506.1001, L501.9520, L500.4100 ####[facility] [address] [place], [address] Globulin (S) [Mass/Vol] 2.2 g/dL Normal 2.2-4.2 [facility] Comment on above: Performed By: #### L 100.0100, L500.4050, L506.1001, L501.9520, L500.4100 ####[facility] [address] [place], [address] Glucose [Mass/Vol] 97 mg/dL Normal 70-99 [facility] Comment on above: Performed By: #### L 100.0100, L500.4050, L506.1001, L501.9520, L500.4100 ####[facility] [address] [place], [address] Potassium [Moles/Vol] 4.3 mmol/L Normal 3.3-5.1 [facility] Comment on above: Result Comment: Hemo lysis present, Results??could be affected. ?? Performed By: #### L 100.0100, L500.4050, L506.1001, L501.9520, L500.4100 ####[facility] [address] [place], [address] Sodium [Moles/Vol] 138 mmol/L Normal 133-145 [facility] Comment on above: Performed By: #### L 100.0100, L500.4050, L506.1001, L501.9520, L500.4100 ####[facility] [address] [place], [address] T PROT 6.4 g/dL Normal 5.9-8.4 [facility] Comment on above: Performed By: #### L 100.0100, L500.4050, L506.1001, L501.9520, L500.4100 ####[facility] [address] [place], [place], [address] Urea nitrogen [Mass/Vol] 12 mg/dL Normal 4-19 [facility] Comment on above: Performed By: #### L 100.0100, L500.4050, L506.1001, L501.9520, L500.4100 ####[facility] [address] [place], [address] Eosinophil percentageOrdered By: Luli Roca on 02-24-2025 Eosinophils/100 WBC (Bld) 3.0 % 0-5 [facility] Erythrocyte distribution wid th ratioOrdered By: Luli Roca on 02-24-2025 Erythrocyte distribution width (RBC) [Ratio] 12.8 % 11.6-14.6 [facility] Erythrocyte distribution wid th standard deviationOrdered By: Luli Roca on 02-24-2025 Erythrocyte distribution width (RBC) [Ratio] 40.7 fl 35.1-43.9 [facility] Glomerular filtration rate ( GFR) estimation/1.73 sq m using serum, plasma, or whole bOrdered By: Luli Roca on 02-24-2025 GFR/1.73 sq M.predicted among non-blacks MDRD (S/P/Bld) [Vol rate/Area] 91 mL/min/{1.73_m2} >60 [facility] Comment on above: mL/min/1.73m2 CKD-EP I Creatinine Equation (2020) Hematocrit Auto (Bld) [Volum e fraction]Ordered By: Luli Roca on 02-24-2025 Hematocrit (Bld) [Volume fraction] 43.3 % 40-54 [facility] Hemoglobin measurementOrdere d By: Luli Roca on 02-24-2025 Hemoglobin (Bld) [Mass/Vol] 15.3 g/dL 13.0-16.5 [facility] Immature granulocytes/100 WB C Auto (Bld)Ordered By: Luli Roca on 02-24-2025 Immature granulocytes/100 WBC (Bld) 0.300 % 0.0-0.9 [facility] Comment on above: IG% - Immature Granu locytes (promyelocytes, myelocytes and metamyelocytes) > 1% indicates that a LEFT SHIFT is Present. LDL calc ser/plasOrdered By: Luli Roca on 02-24-2025 Cholesterol in LDL [Mass/Vol] 167 mg/dL [facility] Comment on above: Zzbcdsuhrs=843-582 m g/dL & Higher Yxax=035 mg/dL or greater Laboratory - Chemistry and C hemistry - challengeOrdered By: Luli Roca on 02-24-2025 AST [Catalytic activity/Vol] 23 U/L <38 [facility] Comment on above: Hemolysis present, R esults could be affected. Lipid Profileon 02-24-2025 CHOL:HDL 4.79 Normal [facility] Comment on above: Performed By: #### L 100.0100, L500.4050, L506.1001, L501.9520, L500.4100 #### [facility] [address] [place], [address] Cholesterol [Mass/Vol] 275 mg/dL High <=200 [facility] Comment on above: Result Comment: Chol esterol level, Desirable <200 mg/dL Borderline high cholesterol 200-239 mg/dL High cholesterol >=240 mg/dL Recommendations of the NCEP Adult Treatment Panel for the following risk-cutoff thresholds for the [place] population. Performed By: #### L 100.0100, L500.4050, L506.1001, L501.9520, L500.4100 #### [facility] [address] [place], [address] Cholesterol in HDL [Mass/Vol] 57 mg/dL Normal [facility] Comment on above: Result Comment: Zena onal Cholesterol Education Program (NCEP) guidelines: <40 mg/dL: Low HDL-cholesterol (major risk factor for CHD) >= 60 mg/dL: High HDL-cholesterol (negative risk factor for CHD) HDL-cholesterol is affected by a number of factors, e.g. smoking, exercise, hormones, sex and age. Performed By: #### L 100.0100, L500.4050, L506.1001, L501.9520, L500.4100 #### [facility] [address] [place], [address] Cholesterol in LDL [Mass/Vol] 167 mg/dL Normal [facility] Comment on above: Result Comment: Bord phjybl=311-707 mg/dL Higher Qfxm=787 mg/dL or greater Performed By: #### L 100.0100, L500.4050, L506.1001, L501.9520, L500.4100 #### [facility] [address] [place], [address] Cholesterol in VLDL [Mass/Vol] 51 mg/dL High 5-40 [facility] Comment on above: Performed By: #### L 100.0100, L500.4050, L506.1001, L501.9520, L500.4100 #### [facility] [address] [place], [address] Triglyceride [Mass/Vol] 255 mg/dL High [facility] Comment on above: Result Comment: The drugs N-Acetylcysteine and Metamizole may falsely depress this assay. Normal range: <150 mg/dL Borderline High: 150-199 mg/dL High: 200-499 mg/dL Very High: >500 mg/dL Performed By: #### L 100.0100, L500.4050, L506.1001, L501.9520, L500.4100 #### [facility] [address] [place], [address] MCV (mean corpuscular volume ) determinationOrdered By: Luli Roca on 02-24-2025 MCV (RBC) [Entitic vol] 87.5 fL 80-94 [facility] Mean corpuscular hemoglobin (MCH) determinationOrdered By: Luli Roca on 02-24-2025 MCH (RBC) [Entitic mass] 30.9 pg 27.0-32.0 [facility] Mean corpuscular hemoglobin concentration (MCHC) determinationOrdered By: Luli Roca on 02-24-2025 MCHC (RBC) [Mass/Vol] 35.3 g/dL 32-36 [facility] Mean platelet volume determi nationOrdered By: Luli Roca on 02-24-2025 Platelet mean volume (Bld) [Entitic vol] 9.8 fL 6.2-12.0 [facility] Monocyte percentageOrdered B y: Luli Roca on 02-24-2025 Monocytes/100 WBC (Bld) 7.4 % 0-10 [facility] Neutrophil percentageOrdered By: Luli Roca on 02-24-2025 Neutrophils/100 WBC (Bld) 53.5 % 47-70 [facility] Nucleated red blood cell per centageOrdered By: Luli Roca on 02-24-2025 Nucleated RBC/100 WBC (Bld) [Ratio] 0 % 0-5 [facility] Platelet countOrdered By: Jake Roca on 02-24-2025 Platelets (Bld) [#/Vol] 197 10*3/uL 150-450 [facility] Potassium measurement (mass/ volume)Ordered By: Luli Roca on 02-24-2025 Potassium (Unsp spec) [Mass/Vol] 4.3 mmol/L 3.3-5.1 [facility] Comment on above: Hemolysis present, R esults could be affected. RBC Auto (Bld) [#/Vol]Ordere d By: Luli Roca on 02-24-2025 RBC (Bld) [#/Vol] 4.95 10*6/uL 4.6-6.2 [facility] Screening total cholesterol/ high density lipoprotein (HDL) cholesterol ratioOrdered By: Luli Roca on 02-24-2025 Cholesterol.total/Maria Dolores sterol in HDL [Mass ratio] 4.79 {ratio} [facility] Serum creatinine measurement (mass/volume)Ordered By: Luli Roca on 02-24-2025 Creatinine [Mass/Vol] 0.88 mg/dL 0.70-1.20 [facility] Serum globulin measurementOr dered By: Luli Roca on 02-24-2025 Globulin (S) [Mass/Vol] 2.2 g/dL 2.2-4.2 [facility] Serum glucose measurement (m ass/volume)Ordered By: Luli Roca on 02-24-2025 Glucose [Mass/Vol] 97 mg/dL 70-99 [facility] Serum or plasma alanine peguero otransferase (ALT) measurementOrdered By: Luli Mamta 02-24-2025 ALT [Catalytic activity/Vol] 22 U/L <47 [facility] Serum or plasma albumin charmaine urement (mass/volume)Ordered By: Luli Mamta 02-24-2025 Albumin [Mass/Vol] 4.2 g/dL 3.4-4.8 [facility] Serum or plasma albumin/glob ulin mass ratioOrdered By: Luli Mamta 02-24-2025 Albumin/Globulin [Mass ratio] 1.9 {ratio} 0.9-2.4 [facility] Serum or plasma alkaline koko sphatase measurementOrdered By: Luli Mamta 02-24-2025 ALP [Catalytic activity/Vol] 65 U/L 40-129 [facility] Serum or plasma calcium charmaine urement (mass/volume)Ordered By: Luli Roca 02-24-2025 Calcium [Mass/Vol] 9.5 mg/dL 7.6-11.0 [facility] Serum or plasma cholesterol in HDL measurement (mass/volume)Ordered By: Luli Mamta 02-24-2025 Cholesterol in HDL [Mass/Vol] 57 mg/dL >40 [facility] Comment on above: National Cholesterol Education Program (NCEP) guidelines:<40 mg/dL: Low HDL-cholesterol (major risk factor for CHD)>= 60 mg/dL: High HDL-cholesterol (negative risk factor for CHD)HDL-cholesterol is affected by a number of factors, e.g. smoking, exercise, hormones, sex and age. Serum or plasma cholesterol measurement (mass/volume)Ordered By: Luli Roca 02-24-2025 Cholesterol [Mass/Vol] 275 mg/dL High <201 [facility] Comment on above: Cholesterol level, D esirable <200 mg/dLBorderline high cholesterol 200-239 mg/dLHigh cholesterol >=240 mg/dLRecommendations of the NCEP Adult Treatment Panel for the following risk-cutoff thresholds for the [place] population. Serum or plasma urea nitroge n measurement (mass/volume)Ordered By: Luli Roca 02-24-2025 Urea nitrogen [Mass/Vol] 12 mg/dL 4-19 [facility] Sodium levelOrdered By: Luli Roca on 02-24-2025 Sodium [Moles/Vol] 138 mmol/L 133-145 [facility] TSH DL <= 0.005 mIU/L QnOrde red By: Luli Roca on 02-24-2025 TSH Qn 2.310 uIU/mL 0.300-4.20 0 [facility] Thyroid Stim Hormone (TSH)on 02-24-2025 TSH 2.310 uIU/mL Normal 0.300-4.20 0 [facility] Comment on above: Performed By: #### L 100.0100, L500.4050, L506.1001, L501.9520, L500.4100 #### [facility] [address] [place], [place], [address] Total proteinOrdered By: Luli Roca on 02-24-2025 Protein [Mass/Vol] 6.4 g/dL 5.9-8.4 [facility] Triglycerides measurementOrd ered By: Luli Roca on 02-24-2025 Triglyceride [Mass/Vol] 255 mg/dL High <199 [facility] Comment on above: The drugs N-Acetylcy steine and Metamizole may falsely depress this assay. Normal range: <150 mg/dLBorderline High: 150-199 mg/dLHigh: 200-499 mg/dLVery High: >500 mg/dL Vitamin D,25 Hydroxyon 02-24 Vitamin D 25-OH 15.8 ng/mL Low 30-100 [facility] Comment on above: Result Comment: Raquel min D Status Deficiency: <20 ng/mL (50nmol/L) Insufficiency: 20-30 ng/mL (50-75 nmol/L) Sufficiency: 30-100 ng/mL (75-250 nmol/L) Toxicity: >100 ng/mL (>250 nmol/L) Performed By: #### L 100.0100, L500.4050, L506.1001, L501.9520, L500.4100 #### [facility] [address] [place], [place], [id number] White blood cell (WBC) count Ordered By: Luli Roca on 02-24-2025 WBC (Bld) [#/Vol] 6.3 10*3/uL 4.4-11.0 [facility] Absolute lymphocyte countOrd ered By: Luli Roca on 12-03-2024 Lymphocytes Auto (Unsp spec) [#/Vol] 2.38 10*3/uL 0.83-4.51 [facility] Absolute neutrophil countOrd ered By: Luli Roca on 12-03-2024 Neutrophils (Bld) [#/Vol] 3.5 10*3/uL 2.0-7.7 [facility] Albumin to globulin ratioOrd ered By: [facility] 12-03-2024 Albumin/Globulin [Mass ratio] 1.1 {ratio} 0.9-2.4 [facility] Automated lymphocyte count a s percentage of total leukocytesOrdered By: Luli Roca on 12-03-2024 Lymphocytes/100 WBC Auto (Unsp spec) 36.7 % 19-41 [facility] Basophil percentageOrdered B y: Luli Roca on 12-03-2024 Basophils/100 WBC (Bld) 0.5 % 0-1 [facility] Bilirubin, totalOrdered By: Luli Roca on 12-03-2024 Bilirubin [Mass/Vol] 0.70 mg/dL 0.20-1.00 [facility] Comment on above: For patients on eltr ombopag therapy, use of Dimension [place] TBIL is not recommended. Blood urea nitrogen (BUN)/cr eatinine ratioOrdered By: Luli Roca on 12-03-2024 Urea nitrogen/Creatinine [Mass ratio] 12.4 mg/mg 10-20 [facility] CBC W/Diff, Automatedon 11-20 Absolute Lymph 2.38 X10 3/uL Normal 0.83-4.51 [facility] Comment on above: Performed By: #### L 500.4050, L100.0100 ####[facility] [address] [place], [place], [id number] Absolute Neut 3.5 X10 3/uL Normal 2.0-7.7 [facility] Comment on above: Performed By: #### L 500.4050, L100.0100 ####[facility] [address] [place], [address] Basophils/100 WBC (Bld) 0.5 % Normal 0-1 [facility] Comment on above: Performed By: #### L 500.4050, L100.0100 ####[facility] [address] [place], [address] Eosinophils/100 WBC (Bld) 2.8 % Normal 0-5 [facility] Comment on above: Performed By: #### L 500.4050, L100.0100 ####[facility] [address] [place], [address] Erythrocyte distribution width (RBC) [Ratio] 12.5 % Normal 11.6-14.6 [facility] Comment on above: Performed By: #### L 500.4050, L100.0100 ####[facility] [address] [place], [address] Hematocrit (Bld) [Volume fraction] 45.6 % Normal 40-54 [facility] Comment on above: Performed By: #### L 500.4050, L100.0100 ####[facility] [address] [place], [address] Hemoglobin (Bld) [Mass/Vol] 15.6 g/dL Normal 13.0-16.5 [facility] Comment on above: Performed By: #### L 500.4050, L100.0100 ####[facility] [address] [place], [address] IG% 0.300 Normal 0.0-0.9 [facility] Comment on above: Result Comment: IG% - Immature Granulocytes (promyelocytes, myelocytes and metamyelocytes) > 1% indicates that a LEFT SHIFT is Present. Performed By: #### L 500.4050, L100.0100 ####[facility] [address] [place], [address] Lymphocytes/100 WBC (Bld) 36.7 % Normal 19-41 [facility] Comment on above: Performed By: #### L 500.4050, L100.0100 ####[facility] [address] [place], [address] MCH (RBC) [Entitic mass] 30.0 pg Normal 27.0-32.0 [facility] Comment on above: Performed By: #### L 500.4050, L100.0100 ####[facility] [address] [place], [address] MCHC (RBC) [Mass/Vol] 34.2 g/dL Normal 32-36 [facility] Comment on above: Performed By: #### L 500.4050, L100.0100 ####[facility] [address] [place], [address] MCV (RBC) [Entitic vol] 87.7 fL Normal 80-94 [facility] Comment on above: Performed By: #### L 500.4050, L100.0100 ####[facility] [address] [place], [address] Monocytes/100 WBC (Bld) 6.6 % Normal 0-10 [facility] Comment on above: Performed By: #### L 500.4050, L100.0100 ####[facility] [address] [place], [address] Neutrophils/100 WBC (Bld) 53.1 % Normal 47-70 [facility] Comment on above: Performed By: #### L 500.4050, L100.0100 ####[facility] [address] [place], [address] Nucleated RBC (Bld) [#/Vol] 0 10*3/uL Normal 0-5 [facility] Comment on above: Performed By: #### L 500.4050, L100.0100 ####[facility] [address] [place], [address] Platelet mean volume (Bld) [Entitic vol] 9.8 fL Normal 6.2-12.0 [facility] Comment on above: Performed By: #### L 500.4050, L100.0100 ####[facility] [address] [place], [address] Platelets (Bld) [#/Vol] 212 10*3/uL Normal 150-450 [facility] Comment on above: Performed By: #### L 500.4050, L100.0100 ####[facility] [address] [place], [address] RBC (Bld) [#/Vol] 5.20 10*6/uL Normal 4.6-6.2 [facility] Comment on above: Performed By: #### L 500.4050, L100.0100 ####[facility] [address] [place], [address] RDW SD 40.2 fl Normal 35.1-43.9 [facility] Comment on above: Performed By: #### L 500.4050, L100.0100 ####[facility] [address] [place], [address] WBC (Bld) [#/Vol] 6.5 10*3/uL Normal 4.4-11.0 [facility] Comment on above: Performed By: #### L 500.4050, L100.0100 ####[facility] [address] [place], [address] Carbon dioxide measurementOr dered By: Luli Roca on 12-03-2024 CO2 [Moles/Vol] 25.0 mmol/L 21.0-32.0 [facility] Chloride measurementOrdered By: Luli Roca on 12-03-2024 Chloride [Moles/Vol] 105 mmol/L 98-107 [facility] Comprehensive Metabolic Prof ilon 12-03-2024 Albumin [Mass/Vol] 3.6 g/dL Normal 3.2-5.0 [facility] Comment on above: Performed By: #### L 500.4050, L100.0100 ####[facility] [address] [place], [address] Albumin/Globulin [Mass ratio] 1.1 {ratio} Normal 0.9-2.4 [facility] Comment on above: Performed By: #### L 500.4050, L100.0100 ####[facility] [address] [place], [address] ALK P 68 U/L Normal 45-117 [facility] Comment on above: Performed By: #### L 500.4050, L100.0100 ####[facility] [address] [place], [address] ALT [Catalytic activity/Vol] 31 U/L Normal 16-61 [facility] Comment on above: Performed By: #### L 500.4050, L100.0100 ####[facility] [address] [place], [address] AST [Catalytic activity/Vol] 27 U/L Normal 15-37 [facility] Comment on above: Result Comment: Slig ht Hemolysis, Result may be falsely increased. Performed By: #### L 500.4050, L100.0100 ####[facility] [address] [place], [address] Bilirubin [Mass/Vol] 0.70 mg/dL Normal 0.20-1.00 [facility] Comment on above: Result Comment: For patients on eltrombopag therapy, use of Dimension [place] TBIL is not recommended. Performed By: #### L 500.4050, L100.0100 ####[facility] [address] [place], [address] BUN/CRE 12.4 RATIO Normal 10-20 [facility] Comment on above: Performed By: #### L 500.4050, L100.0100 ####[facility] [address] [place], [address] CA,Total 9.3 mg/dL Normal 8.5-10.1 [facility] Comment on above: Performed By: #### L 500.4050, L100.0100 ####[facility] [address] [place], [address] Chloride [Moles/Vol] 105 mmol/L Normal 98-107 [facility] Comment on above: Performed By: #### L 500.4050, L100.0100 ####[facility] [address] [place], [address] CO2 [Moles/Vol] 25.0 mmol/L Normal 21.0-32.0 [facility] Comment on above: Performed By: #### L 500.4050, L100.0100 ####[facility] [address] [place], [address] Creatinine [Mass/Vol] 0.88 mg/dL Normal 0.70-1.30 [facility] Comment on above: Result Comment: The validity of the calculated GFR GFRAA in patients over 70 years has not been determined. Clinical correlation is essential. Performed By: #### L 500.4050, L100.0100 ####[facility] [address] [place], [address] EST GFR - AA 108 mL/min Normal >60 [facility] Comment on above: Result Comment: Afri can [place] GFR Calc Performed By: #### L 500.4050, L100.0100 ####[facility] [address] [place], [address] GAP 7 Normal 5-15 [facility] Comment on above: Performed By: #### L 500.4050, L100.0100 ####[facility] [address] [place], [address] GFR/1.73 sq M.predicted among non-blacks MDRD (S/P/Bld) [Vol rate/Area] 90 mL/min/{1.73_m2} Normal >60 [facility] Comment on above: Result Comment: Non- GFR Calc Performed By: #### L 500.4050, L100.0100 ####[facility] [address] [place], [address] Globulin (S) [Mass/Vol] 3.4 g/dL Normal 2.2-4.2 [facility] Comment on above: Performed By: #### L 500.4050, L100.0100 ####[facility] [address] [place], [address] Glucose [Mass/Vol] 129 mg/dL High 74-106 [facility] Comment on above: Result Comment: Fast ing Glucose result greater than or equal to 126 mg/dL suggests DIABETES MELLITUS per A.D.A. criteria. Performed By: #### L 500.4050, L100.0100 ####[facility] [address] [place], [address] Potassium [Moles/Vol] 4.0 mmol/L Normal 3.5-5.1 [facility] Comment on above: Result Comment: Slig ht Hemolysis, Result may be falsely increased. Performed By: #### L 500.4050, L100.0100 ####[facility] [address] [place], [address] Sodium [Moles/Vol] 137 mmol/L Normal 136-145 [facility] Comment on above: Performed By: #### L 500.4050, L100.0100 ####[facility] [address] [place], [address] T PROT 7.0 g/dL Normal 6.4-8.2 [facility] Comment on above: Performed By: #### L 500.4050, L100.0100 ####[facility] [address] [place], [address] Urea nitrogen [Mass/Vol] 11 mg/dL Normal 7-18 [facility] Comment on above: Performed By: #### L 500.4050, L100.0100 ####[facility] [address] [place], [address] Eosinophil percentageOrdered By: Luli Roca on 12-03-2024 Eosinophils/100 WBC (Bld) 2.8 % 0-5 [facility] Erythrocyte distribution wid th ratioOrdered By: Luli Roca on 12-03-2024 Erythrocyte distribution width (RBC) [Ratio] 12.5 % 11.6-14.6 [facility] Erythrocyte distribution wid th standard deviationOrdered By: Luli Roca on 12-03-2024 Erythrocyte distribution width (RBC) [Ratio] 40.2 fl 35.1-43.9 [facility] Glomerular filtration rate ( GFR) estimationOrdered By: Luli Roca 12-03-2024 GFR/1.73 sq M.predicted among non-blacks MDRD (S/P/Bld) [Vol rate/Area] 90 mL/min/{1.73_m2} >60 [facility] Comment on above: Non- GFR Calc Glucose measurementOrdered B y: Luli Roca on 12-03-2024 Glucose [Mass/Vol] 129 mg/dL High 74-106 [facility] Comment on above: Fasting Glucose resu lt greater than or equal to 126 mg/dL suggests DIABETES MELLITUS per A.D.A. criteria. Hematocrit Auto (Bld) [Volum e fraction]Ordered By: Luli Roca on 12-03-2024 Hematocrit (Bld) [Volume fraction] 45.6 % 40-54 [facility] Hemoglobin measurementOrdere d By: Luli Roca on 12-03-2024 Hemoglobin (Bld) [Mass/Vol] 15.6 g/dL 13.0-16.5 [facility] Immature granulocytes/100 WB C Auto (Bld)Ordered By: Luli Roca on 12-03-2024 Immature granulocytes/100 WBC (Bld) 0.300 % 0.0-0.9 [facility] Comment on above: IG% - Immature Granu locytes (promyelocytes, myelocytes and metamyelocytes) > 1% indicates that a LEFT SHIFT is Present. Laboratory - Chemistry and C hemistry - challengeOrdered By: Luli Roca on 12-03-2024 AST [Catalytic activity/Vol] 27 U/L 15-37 [facility] Comment on above: Slight Hemolysis, Re sult may be falsely increased. MCV (mean corpuscular volume ) determinationOrdered By: Luli Roca on 12-03-2024 MCV (RBC) [Entitic vol] 87.7 fL 80-94 [facility] Mean corpuscular hemoglobin (MCH) determinationOrdered By: Luli Roca 12-03-2024 MCH (RBC) [Entitic mass] 30.0 pg 27.0-32.0 [facility] Mean corpuscular hemoglobin concentration (MCHC) determinationOrdered By: Luli Roca 12-03-2024 MCHC (RBC) [Mass/Vol] 34.2 g/dL 32-36 [facility] Mean platelet volume determi nationOrdered By: Luli Roca on 12-03-2024 Platelet mean volume (Bld) [Entitic vol] 9.8 fL 6.2-12.0 [facility] Monocyte percentageOrdered B y: Luli Roca on 12-03-2024 Monocytes/100 WBC (Bld) 6.6 % 0-10 [facility] Neutrophil percentageOrdered By: Luli Roca on 12-03-2024 Neutrophils/100 WBC (Bld) 53.1 % 47-70 [facility] Nucleated red blood cell per centageOrdered By: Luli Roca on 12-03-2024 Nucleated RBC/100 WBC (Bld) [Ratio] 0 % 0-5 [facility] Platelet countOrdered By: Jake Roca on 12-03-2024 Platelets (Bld) [#/Vol] 212 10*3/uL 150-450 [facility] Potassium measurementOrdered By: Luli Roca 12-03-2024 Potassium [Moles/Vol] 4.0 mmol/L 3.5-5.1 [facility] Comment on above: Slight Hemolysis, Re sult may be falsely increased. RBC Auto (Bld) [#/Vol]Ordere d By: Luli Roca on 12-03-2024 RBC (Bld) [#/Vol] 5.20 10*6/uL 4.6-6.2 [facility] Serum anion gap measurementO rdered By: Luli Roca 12-03-2024 Anion gap [Moles/Vol] 7 mmol/L 5-15 [facility] Serum globulin measurementOr dered By: Luli Roca 12-03-2024 Globulin (S) [Mass/Vol] 3.4 g/dL 2.2-4.2 [facility] Serum or plasma alanine peguero otransferase (ALT) measurementOrdered By: Luli Roca 12-03-2024 ALT [Catalytic activity/Vol] 31 U/L 16-61 [facility] Serum or plasma albumin charmaine urement (mass/volume)Ordered By: Luli Roca 12-03-2024 Albumin [Mass/Vol] 3.6 g/dL 3.2-5.0 [facility] Serum or plasma alkaline koko sphatase measurementOrdered By: Luli Roca 12-03-2024 ALP [Catalytic activity/Vol] 68 U/L 45-117 [facility] Serum or plasma calcium charmaine urement (mass/volume)Ordered By: Luli Roca 12-03-2024 Calcium [Mass/Vol] 9.3 mg/dL 8.5-10.1 [facility] Serum or plasma creatinine m easurement (mass/volume)Ordered By: Luli Roca 12-03-2024 Creatinine [Mass/Vol] 0.88 mg/dL 0.70-1.30 [facility] Comment on above: The validity of the calculated GFR & GFRAA in patients over 70 years has not been determined. Clinical correlation is essential. Serum or plasma urea nitroge n measurement (mass/volume)Ordered By: Luli Roca 12-03-2024 Urea nitrogen [Mass/Vol] 11 mg/dL 7-18 [facility] Sodium levelOrdered By: Luli Roca on 12-03-2024 Sodium [Moles/Vol] 137 mmol/L 136-145 [facility] Total proteinOrdered By: Luli Roca on 12-03-2024 Protein [Mass/Vol] 7.0 g/dL 6.4-8.2 [facility] White blood cell (WBC) count Ordered By: Luli Roca on 12-03-2024 WBC (Bld) [#/Vol] 6.5 10*3/uL 4.4-11.0 [facility] CBC W/Diff, Automatedon 10-2 Absolute Lymph 2.53 X10 3/uL Normal 0.83-4.51 [facility] Comment on above: Performed By: #### L 500.4100, L500.4050, L100.0100, L506.1000, L501.9520 ####[facility] [address] [place], [address] Absolute Neut 3.5 X10 3/uL Normal 2.0-7.7 [facility] Comment on above: Performed By: #### L 500.4100, L500.4050, L100.0100, L506.1000, L501.9520 ####[facility] [address] [place], [address] Basophils/100 WBC (Bld) 0.6 % Normal 0-1 [facility] Comment on above: Performed By: #### L 500.4100, L500.4050, L100.0100, L506.1000, L501.9520 ####[facility] [address] [place], [address] Eosinophils/100 WBC (Bld) 2.3 % Normal 0-5 [facility] Comment on above: Performed By: #### L 500.4100, L500.4050, L100.0100, L506.1000, L501.9520 ####[facility] [address] [place], [address] Erythrocyte distribution width (RBC) [Ratio] 12.7 % Normal 11.6-14.6 [facility] Comment on above: Performed By: #### L 500.4100, L500.4050, L100.0100, L506.1000, L501.9520 ####[facility] [address] [place], [address] Hematocrit (Bld) [Volume fraction] 45.5 % Normal 40-54 [facility] Comment on above: Performed By: #### L 500.4100, L500.4050, L100.0100, L506.1000, L501.9520 ####[facility] [address] [place], [address] Hemoglobin (Bld) [Mass/Vol] 15.3 g/dL Normal 13.0-16.5 [facility] Comment on above: Performed By: #### L 500.4100, L500.4050, L100.0100, L506.1000, L501.9520 ####[facility] [address] [place], [address] IG% 0.500 Normal 0.0-0.9 [facility] Comment on above: Result Comment: IG% - Immature Granulocytes (promyelocytes, myelocytes and metamyelocytes) > 1% indicates that a LEFT SHIFT is Present. Performed By: #### L 500.4100, L500.4050, L100.0100, L506.1000, L501.9520 ####[facility] [address] [place], [place], [address] Lymphocytes/100 WBC (Bld) 38.1 % Normal 19-41 [facility] Comment on above: Performed By: #### L 500.4100, L500.4050, L100.0100, L506.1000, L501.9520 ####[facility] [address] [place], [address] MCH (RBC) [Entitic mass] 30.3 pg Normal 27.0-32.0 [facility] Comment on above: Performed By: #### L 500.4100, L500.4050, L100.0100, L506.1000, L501.9520 ####[facility] [address] [place], [address] MCHC (RBC) [Mass/Vol] 33.6 g/dL Normal 32-36 [facility] Comment on above: Performed By: #### L 500.4100, L500.4050, L100.0100, L506.1000, L501.9520 ####[facility] [address] [place], [address] MCV (RBC) [Entitic vol] 90.1 fL Normal 80-94 [facility] Comment on above: Performed By: #### L 500.4100, L500.4050, L100.0100, L506.1000, L501.9520 ####[facility] [address] [place], [address] Monocytes/100 WBC (Bld) 5.9 % Normal 0-10 [facility] Comment on above: Performed By: #### L 500.4100, L500.4050, L100.0100, L506.1000, L501.9520 ####[facility] [address] [place], [address] Neutrophils/100 WBC (Bld) 52.6 % Normal 47-70 [facility] Comment on above: Performed By: #### L 500.4100, L500.4050, L100.0100, L506.1000, L501.9520 ####[facility] [address] [place], [address] Nucleated RBC (Bld) [#/Vol] 0 10*3/uL Normal 0-5 [facility] Comment on above: Performed By: #### L 500.4100, L500.4050, L100.0100, L506.1000, L501.9520 ####[facility] [address] [place], [address] Platelet mean volume (Bld) [Entitic vol] 9.6 fL Normal 6.2-12.0 [facility] Comment on above: Performed By: #### L 500.4100, L500.4050, L100.0100, L506.1000, L501.9520 ####[facility] [address] [place], [address] Platelets (Bld) [#/Vol] 197 10*3/uL Normal 150-450 [facility] Comment on above: Performed By: #### L 500.4100, L500.4050, L100.0100, L506.1000, L501.9520 ####[facility] [address] [place], [address] RBC (Bld) [#/Vol] 5.05 10*6/uL Normal 4.6-6.2 [facility] Comment on above: Performed By: #### L 500.4100, L500.4050, L100.0100, L506.1000, L501.9520 ####[facility] [address] [place], [address] RDW SD 42.1 fl Normal 35.1-43.9 [facility] Comment on above: Performed By: #### L 500.4100, L500.4050, L100.0100, L506.1000, L501.9520 ####[facility] [address] [place], [address] WBC (Bld) [#/Vol] 6.6 10*3/uL Normal 4.4-11.0 [facility] Comment on above: Performed By: #### L 500.4100, L500.4050, L100.0100, L506.1000, L501.9520 ####[facility] [address] [place], [address] Comprehensive Metabolic Prof ilon 08-17-2024 Albumin [Mass/Vol] 3.9 g/dL Normal 3.2-5.0 [facility] Comment on above: Performed By: #### L 500.4100, L500.4050, L100.0100, L506.1000, L501.9520 ####[facility] [address] [place], [address] Albumin/Globulin [Mass ratio] 1.4 {ratio} Normal 0.9-2.4 [facility] Comment on above: Performed By: #### L 500.4100, L500.4050, L100.0100, L506.1000, L501.9520 ####[facility] [address] [place], [address] ALK P 61 U/L Normal 45-117 [facility] Comment on above: Performed By: #### L 500.4100, L500.4050, L100.0100, L506.1000, L501.9520 ####[facility] [address] [place], [address] ALT [Catalytic activity/Vol] 25 U/L Normal 16-61 [facility] Comment on above: Performed By: #### L 500.4100, L500.4050, L100.0100, L506.1000, L501.9520 ####[facility] [address] [place], [address] AST [Catalytic activity/Vol] 19 U/L Normal 15-37 [facility] Comment on above: Performed By: #### L 500.4100, L500.4050, L100.0100, L506.1000, L501.9520 ####[facility] [address] [place], [address] Bilirubin [Mass/Vol] 0.70 mg/dL Normal 0.20-1.00 [facility] Comment on above: Result Comment: For patients on eltrombopag therapy, use of Dimension [place] TBIL is not recommended. Performed By: #### L 500.4100, L500.4050, L100.0100, L506.1000, L501.9520 ####[facility] [address] [place], [address] BUN/CRE 14.8 RATIO Normal 10-20 [facility] Comment on above: Performed By: #### L 500.4100, L500.4050, L100.0100, L506.1000, L501.9520 ####[facility] [address] [place], [address] CA,Total 9.2 mg/dL Normal 8.5-10.1 [facility] Comment on above: Performed By: #### L 500.4100, L500.4050, L100.0100, L506.1000, L501.9520 ####[facility] [address] [place], [address] Chloride [Moles/Vol] 105 mmol/L Normal 98-107 [facility] Comment on above: Performed By: #### L 500.4100, L500.4050, L100.0100, L506.1000, L501.9520 ####[facility] [address] [place], [address] CO2 [Moles/Vol] 28.0 mmol/L Normal 21.0-32.0 [facility] Comment on above: Performed By: #### L 500.4100, L500.4050, L100.0100, L506.1000, L501.9520 ####[facility] [address] [place], [address] Creatinine [Mass/Vol] 0.81 mg/dL Normal 0.70-1.30 [facility] Comment on above: Result Comment: The validity of the calculated GFR GFRAA in patients over 70 years has not been determined. Clinical correlation is essential. Performed By: #### L 500.4100, L500.4050, L100.0100, L506.1000, L501.9520 ####[facility] [address] [place], [address] EST GFR - AA 120 mL/min Normal >60 [facility] Comment on above: Result Comment: Afri can [place] GFR Calc Performed By: #### L 500.4100, L500.4050, L100.0100, L506.1000, L501.9520 ####[facility] [address] [place], [address] GAP 5 Normal 5-15 [facility] Comment on above: Performed By: #### L 500.4100, L500.4050, L100.0100, L506.1000, L501.9520 ####[facility] [address] [place], [address] GFR/1.73 sq M.predicted among non-blacks MDRD (S/P/Bld) [Vol rate/Area] 99 mL/min/{1.73_m2} Normal >60 [facility] Comment on above: Result Comment: Non- GFR Calc Performed By: #### L 500.4100, L500.4050, L100.0100, L506.1000, L501.9520 ####[facility] [address] [place], [address] Globulin (S) [Mass/Vol] 2.7 g/dL Normal 2.2-4.2 [facility] Comment on above: Performed By: #### L 500.4100, L500.4050, L100.0100, L506.1000, L501.9520 ####[facility] [address] [place], [address] Glucose [Mass/Vol] 99 mg/dL Normal 74-106 [facility] Comment on above: Performed By: #### L 500.4100, L500.4050, L100.0100, L506.1000, L501.9520 ####[facility] [address] [place], [address] Potassium [Moles/Vol] 4.1 mmol/L Normal 3.5-5.1 [facility] Comment on above: Performed By: #### L 500.4100, L500.4050, L100.0100, L506.1000, L501.9520 ####[facility] [address] [place], [address] Sodium [Moles/Vol] 139 mmol/L Normal 136-145 [facility] Comment on above: Performed By: #### L 500.4100, L500.4050, L100.0100, L506.1000, L501.9520 ####[facility] [address] [place], [address] T PROT 6.6 g/dL Normal 6.4-8.2 [facility] Comment on above: Performed By: #### L 500.4100, L500.4050, L100.0100, L506.1000, L501.9520 ####[facility] [address] [place], [address] Urea nitrogen [Mass/Vol] 12 mg/dL Normal 7-18 [facility] Comment on above: Performed By: #### L 500.4100, L500.4050, L100.0100, L506.1000, L501.9520 ####[facility] [address] [place], [address] Lipid Profileon 08-17-2024 Cholesterol [Mass/Vol] 263 mg/dL High 200 [facility] Comment on above: Result Comment: <200 mg/dL Desirable 200-240 mg/dL Borderline >240 mg/dL High Risk Performed By: #### L 500.4100, L500.4050, L100.0100, L506.1000, L501.9520 ####[facility] [address] [place], [address] Cholesterol in HDL [Mass/Vol] 63 mg/dL Normal [facility] Comment on above: Result Comment: The drugs N-Acetylcysteine and Metamizole may falsely depress this assay. Reference Range HDL <40 mg/dL Low HDL Cholesterol HDL >or= 60 mg/dL High HDL Cholesterol Performed By: #### L 500.4100, L500.4050, L100.0100, L506.1000, L501.9520 ####[facility] [address] [place], [address] Cholesterol in LDL [Mass/Vol] 153 mg/dL High 0-130 [facility] Comment on above: Performed By: #### L 500.4100, L500.4050, L100.0100, L506.1000, L501.9520 ####[facility] [address] [place], [address] Cholesterol in VLDL [Mass/Vol] 47 mg/dL High 5-40 [facility] Comment on above: Performed By: #### L 500.4100, L500.4050, L100.0100, L506.1000, L501.9520 ####[facility] [address] [place], [address] Triglyceride [Mass/Vol] 233 mg/dL High W [facility] Comment on above: Result Comment: The drugs N-Acetylcysteine and Metamizole may falsely depress this assay. Serum Triglycerides Reference Interval Normal <150 mg/dL Borderline high 150 - 199 mg/dL High 200 - 499 mg/dL Very High > or = 500 mg/dL Performed By: #### L 500.4100, L500.4050, L100.0100, L506.1000, L501.9520 ####[facility] [address] [place], [address] Thyroid Stim Hormone (TSH)on 08-17-2024 TSH 1.960 uIU/mL Normal 0.358-3.74 0 [facility] Comment on above: Performed By: #### L 500.4100, L500.4050, L100.0100, L506.1000, L501.9520 ####[facility] [address] [place], [address] Vitamin D,25 Hydroxyon 08-17 Vitamin D 25-OH 11.8 ng/mL Normal [facility] Comment on above: Result Comment: Raquel min D 25(OH) Status Range Deficiency <20 ng/mL (50nmol/L) Insufficiency 20 - 30 ng/mL (50 - 75 nmol/L) Sufficiency 30 - 100 ng/mL (75 - 250 nmol/L) Toxicity >100 ng/mL (>250 nmol/L) Performed By: #### L 500.4100, L500.4050, L100.0100, L506.1000, L501.9520 ####[facility] [address] [place], [address] 36on 05-04-2024 36 Spoke with patient. Made patient aware refill was sent to pharmacy. [facility] 36on 05-03-2024 36 Medication sent [facility] 36 Name of caller: Gian lin Contact phone number: [phone] Relationship to Patient: patient Provider: Dr. Abdalla Practice: Urology Chief Complaint/Reason for Call: Patient Ruben calling in and wanted to know if Dr. Abdalla could call in Trimix for the patient. Patients last office visit was 08/2022. Please advise Best time of day caller can be reached: Any Patient advised that office/PCP has 24-48 business hours to return their call: N/A [facility] Absolute lymphocyte countOrd ered By: Luli Roca on 08-19-2023 Lymphocytes Auto (Unsp spec) [#/Vol] 1.80 10*3/uL 0.83-4.51 [facility] Basophil percentageOrdered B y: Luli Roca on 08-19-2023 Basophils/100 WBC (Bld) 0.6 % 0-1 [facility] Bilirubin [Mass/Vol] 0.50 mg/dL 0.20-1.00 [facility] Comment on above: For patients on eltr ombopag therapy, use of Dimension [place] TBIL is not recommended. Chloride [Moles/Vol] 106 mmol/L 98-107 [facility] Eosinophils/100 WBC (Bld) 2.7 % 0-5 [facility] Glucose [Mass/Vol] 80 mg/dL 74-106 [facility] Neutrophils (Bld) [#/Vol] 2.8 10*3/uL 2.0-7.7 [facility] Neutrophils/100 WBC (Bld) 55.1 % 47-70 [facility] Potassium [Moles/Vol] 3.8 mmol/L 3.5-5.1 [facility] Protein [Mass/Vol] 6.9 g/dL 6.4-8.2 [facility] Sodium [Moles/Vol] 137 mmol/L 136-145 [facility] WBC (Bld) [#/Vol] 5.1 10*3/uL 4.4-11.0 [facility] Blood erythrocytes count (nu mber/volume)Ordered By: Luli Roca on 08-19-2023 RBC (Bld) [#/Vol] 4.99 10*6/uL 4.6-6.2 [facility] Blood hemoglobin measurement (mass/volume)Ordered By: Luli Roca on 08-19-2023 Hemoglobin (Bld) [Mass/Vol] 15.6 g/dL 13.0-16.5 [facility] Blood lymphocytes/100 leukoc ytesOrdered By: Luli Roca on 08-19-2023 Lymphocytes/100 WBC (Bld) 35.0 % 19-41 [facility] Blood monocytes/100 leukocyt esOrdered By: Luli Roca on 08-19-2023 Monocytes/100 WBC (Bld) 6.4 % 0-10 [facility] Blood platelet mean volumeOr dered By: Luli Roca on 08-19-2023 Platelet mean volume (Bld) [Entitic vol] 9.6 fL 6.2-12.0 [facility] Determination of erythrocyte mean corpuscular volume (MCV)Ordered By: Luli Roca on 08-19-2023 MCV (RBC) [Entitic vol] 89.6 fL 80-94 [facility] Hematocrit Auto (Bld) [Volum e fraction]Ordered By: Luli Roca on 08-19-2023 Hematocrit (Bld) [Volume fraction] 44.7 % 40-54 [facility] Laboratory - Chemistry and C hemistry - challengeOrdered By: [facility] on 08-19-2023 ALP [Catalytic activity/Vol] 62 U/L 45-117 [facility] ALT [Catalytic activity/Vol] 27 U/L 16-61 [facility] CO2 [Moles/Vol] 28.0 mmol/L 21.0-32.0 [facility] Globulin (S) [Mass/Vol] 3.2 g/dL 2.2-4.2 [facility] Urea nitrogen/Creatinine [Mass ratio] 18.0 mg/mg 10-20 [facility] - Hematology and Cell countsOrdered By: [facility] Mamta on 08-19-2023 Erythrocyte distribution width (RBC) [Entitic vol] 42.2 fL 35.1-43.9 [facility] Erythrocyte distribution width (RBC) [Ratio] 12.9 % 11.6-14.6 [facility] Immature granulocytes/100 WBC (Bld) 0.200 % 0.0-0.9 [facility] Comment on above: IG% - Immature Granu locytes (promyelocytes, myelocytes and metamyelocytes) > 1% indicates that a LEFT SHIFT is Present. MCH (RBC) [Entitic mass] 31.3 pg 27.0-32.0 [facility] Nucleated RBC/100 WBC (Bld) [Ratio] 0 % 0-5 [facility] MCHC Auto (RBC) [Mass/Vol]Or dered By: Luli Roca on 08-19-2023 MCHC (RBC) [Mass/Vol] 34.9 g/dL 32-36 [facility] No Panel InformationOrdered By: Luli Roca on 08-19-2023 Estimated GFR (MDRD) Amer 117 mL/min >60 [facility] Comment on above: GFR Calc Estimated GFR (MDRD) Non-Af Amer 96 mL/min >60 [facility] Comment on above: Non- GFR Calc Thyroid Stimulating Hormone (TSH) 1.15 uIU/mL 0.358-3.74 [facility] Vitamin D 25-Hydroxy 28.8 ng/mL [facility] Comment on above: Vitamin D 25(OH) Sta tus Range Deficiency <20 ng/mL (50nmol/L) Insufficiency 20 - 30 ng/mL (50 - 75 nmol/L) Sufficiency 30 - 100 ng/mL (75 - 250 nmol/L) Toxicity >100 ng/mL (>250 nmol/L) Platelets bldOrdered By: Luli Roca on 08-19-2023 Platelets (Bld) [#/Vol] 191 10*3/uL 150-450 [facility] Serum or plasma albumin charmaine urement (mass/volume)Ordered By: Luli Roca on 08-19-2023 Albumin [Mass/Vol] 3.7 g/dL 3.2-5.0 [facility] Serum or plasma albumin/glob ulin mass ratioOrdered By: Luli Roca on 08-19-2023 Albumin/Globulin [Mass ratio] 1.2 {ratio} 0.9-2.4 [facility] Serum or plasma calcium charmaine urement (mass/volume)Ordered By: Luli Roca on 08-19-2023 Calcium [Mass/Vol] 9.1 mg/dL 8.5-10.1 [facility] Serum or plasma creatinine m easurement (mass/volume)Ordered By: Luli Roca on 08-19-2023 Creatinine [Mass/Vol] 0.83 mg/dL 0.70-1.30 [facility] Comment on above: The validity of the calculated GFR & GFRAA in patients over 70 years has not been determined. Clinical correlation is essential. Serum or plasma urea nitroge n measurement (mass/volume)Ordered By: Luli Roca on 08-19-2023 Urea nitrogen [Mass/Vol] 15 mg/dL 7-18 [facility] Thin prep Papanicolaou smear with manual screeningOrdered By: Luli Roca on 08-19-2023 Thin prep Papanicolaou smear with manual screening 17 U/L 15-37 [facility] Thin prep Papanicolaou smear with manual screening 3 5-15 [facility] Absolute lymphocyte countOrd ered By: Dr. Roca on 02-20-2023 Lymphocytes Auto (Unsp spec) [#/Vol] 1.77 10*3/uL 0.83-4.51 [facility] Basophil percentageOrdered B y: Dr. Roca on 02-20-2023 Basophils/100 WBC (Bld) 0.5 % 0-1 [facility] Bilirubin [Mass/Vol] 0.70 mg/dL 0.20-1.00 [facility] Comment on above: For patients on eltr ombopag therapy, use of Dimension [place] TBIL is not recommended. Chloride [Moles/Vol] 103 mmol/L 98-107 [facility] Eosinophils/100 WBC (Bld) 2.2 % 0-5 [facility] Glucose [Mass/Vol] 90 mg/dL 74-106 [facility] Neutrophils (Bld) [#/Vol] 3.6 10*3/uL 2.0-7.7 [facility] Neutrophils/100 WBC (Bld) 61.5 % 47-70 [facility] Potassium [Moles/Vol] 4.2 mmol/L 3.5-5.1 [facility] Protein [Mass/Vol] 7.4 g/dL 6.4-8.2 [facility] Sodium [Moles/Vol] 140 mmol/L 136-145 [facility] WBC (Bld) [#/Vol] 5.8 10*3/uL 4.4-11.0 [facility] Blood erythrocytes count (nu mber/volume)Ordered By: Dr. Roca on 02-20-2023 RBC (Bld) [#/Vol] 5.20 10*6/uL 4.6-6.2 [facility] Blood hemoglobin measurement (mass/volume)Ordered By: Dr. Roca on 02-20-2023 Hemoglobin (Bld) [Mass/Vol] 16.3 g/dL 13.0-16.5 [facility] Blood lymphocytes/100 leukoc ytesOrdered By: Dr. Roca on 02-20-2023 Lymphocytes/100 WBC (Bld) 30.4 % 19-41 [facility] Blood monocytes/100 leukocyt esOrdered By: Dr. Roca on 02-20-2023 Monocytes/100 WBC (Bld) 5.2 % 0-10 [facility] Blood platelet mean volumeOr dered By: Dr. Roca on 02-20-2023 Platelet mean volume (Bld) [Entitic vol] 10.7 fL 6.2-12.0 [facility] Determination of erythrocyte mean corpuscular volume (MCV)Ordered By: Dr. Roca on 02-20-2023 MCV (RBC) [Entitic vol] 91.2 fL 80-94 [facility] Hematocrit Auto (Bld) [Volum e fraction]Ordered By: Dr. Roca on 02-20-2023 Hematocrit (Bld) [Volume fraction] 47.4 % 40-54 [facility] Laboratory - Chemistry and C hemistry - challengeOrdered By: Dr. Roca on 02-20-2023 ALP [Catalytic activity/Vol] 60 U/L 45-117 [facility] ALT [Catalytic activity/Vol] 32 U/L 16-61 [facility] CO2 [Moles/Vol] 28.0 mmol/L 21.0-32.0 [facility] Globulin (S) [Mass/Vol] 3.2 g/dL 2.2-4.2 [facility] Urea nitrogen/Creatinine [Mass ratio] 14.0 mg/mg 10-20 [facility] - Hematology and Cell countsOrdered By: Dr. Roca on 02-20-2023 Erythrocyte distribution width (RBC) [Entitic vol] 42.7 fL 35.1-43.9 [facility] Erythrocyte distribution width (RBC) [Ratio] 12.8 % 11.6-14.6 [facility] Immature granulocytes/100 WBC (Bld) 0.200 % 0.0-0.9 [facility] Comment on above: IG% - Immature Granu locytes (promyelocytes, myelocytes and metamyelocytes) > 1% indicates that a LEFT SHIFT is Present. MCH (RBC) [Entitic mass] 31.3 pg 27.0-32.0 [facility] Nucleated RBC/100 WBC (Bld) [Ratio] 0 % 0[facility]5 [facility] [Mass/Vol]Or dered By: Dr. Roca on 02-20-2023 MCHC (RBC) [Mass/Vol] 34.4 g/dL 32-36 [facility] No Panel InformationOrdered By: Dr. Roca on 02-20-2023 Estimated GFR (MDRD) Amer 113 mL/min >60 [facility] Comment on above: GFR Calc Estimated GFR (MDRD) Non-Af Amer 93 mL/min >60 [facility] Comment on above: Non- GFR Calc Prostate Specific Antigen Screen 0.15 ng/mL 0.00-4.00 [facility] Comment on above: This test was perfor med using the TPSA assay method for [employer] chemistry system. Values obtained with differentassay methods cannot be used interchangably.When changing PSA assays in the course of monitoring apatient, additional sequential testing should be carriedout to confirm baseline values. Thyroid Stimulating Hormone (TSH) 1.51 uIU/mL 0.358-3.74 [facility] Vitamin D 25-Hydroxy 31.9 ng/mL [facility] Comment on above: Vitamin D 25(OH) Sta tus Range Deficiency <20 ng/mL (50nmol/L) Insufficiency 20 - 30 ng/mL (50 - 75 nmol/L) Sufficiency 30 - 100 ng/mL (75 - 250 nmol/L) Toxicity >100 ng/mL (>250 nmol/L) Platelets bldOrdered By: Dr. Roca on 02-20-2023 Platelets (Bld) [#/Vol] 196 10*3/uL 150-450 [facility] Serum or plasma albumin charmaine urement (mass/volume)Ordered By: Dr. Roca on 02-20-2023 Albumin [Mass/Vol] 4.2 g/dL 3.2-5.0 [facility] Serum or plasma albumin/glob ulin mass ratioOrdered By: Dr. Roca on 02-20-2023 Albumin/Globulin [Mass ratio] 1.3 {ratio} 0.9-2.4 [facility] Serum or plasma calcium charmaine urement (mass/volume)Ordered By: Dr. Roca on 02-20-2023 Calcium [Mass/Vol] 9.6 mg/dL 8.5-10.1 [facility] Serum or plasma creatinine m easurement (mass/volume)Ordered By: Dr. Roca on 02-20-2023 Creatinine [Mass/Vol] 0.86 mg/dL 0.70-1.30 [facility] Comment on above: The validity of the calculated GFR & GFRAA in patients over 70 years has not been determined. Clinical correlation is essential. Serum or plasma urea nitroge n measurement (mass/volume)Ordered By: Dr. Roca on 02-20-2023 Urea nitrogen [Mass/Vol] 12 mg/dL 7-18 [facility] Thin prep Papanicolaou smear with manual screeningOrdered By: Dr. Roca on 02-20-2023 Thin prep Papanicolaou smear with manual screening 21 U/L 15-37 [facility] Thin prep Papanicolaou smear with manual screening 9 5-15 [facility] 36on 09-26-2022 36 Returned call to casandra tam. Per pharmacy they got the papaverine back in stock and RX was filled as ordered. States patient picked it up yesterday. [facility] 36 Ok to use bimix [address] 09-25-2022 36 Received call from fabrice grady regarding pt's Trimix order. The pharmacy is out of Papaverine. They would like to know if they can change the order to use a supplement. Please advise, thank you [place] [id number] 09-24-2022 36 Pharmacy called to matthew rivera trimix order faxed. Faxed at this time. [facility] 36on 09-20-2022 36 Trimix prescription created and will place at the front to have it be [facility]ed [facility]. Closing encounter [facility] 36 Received VM from pt stating medication script has not been received from pharmacy. Noted prescription not found in media. [facility] Laboratory - Microbiology an d Antimicrobial susceptibilityOrdered By: Dr. Roca on 09-18-2022 SARS-CoV-2 (COVID-19) RNA EZEQUIEL+probe Ql (Unsp spec) Not detected Not Detect [facility] Comment on above: Normal Reference Ran ge: Not DetectedMethod:(RT-PCR) real-time reverse transcriptase PCRLuminex BENNY Instrument*The Food and Drug Administration (FDA) has issued an Emergency Use Authorization (EAU) for the BENNY SARS-CoV-2 Assay for the rapid detection of the virus that causes COVID-19. This test has been validated, but the FDAs independent review of this validation is pending.*Negative results do not preclude infection and should not be used as the sole basis for treatment or patient management. Optimum specimen types and timing for peak viral levels during infections caused by SARS-CoV-2 have not been determined. Collection of multiple specimens from the same patient may be necessary to detect the virus. The possibility of a false negative result should be considered if the patient has clinical presentation or has had recent exposure. No Panel InformationOrdered By: Dr. Roca on 09-18-2022 Influenza Types A,B Direct FA (MICHAEL) [facility] RSV Ag EIAOrdered By: Dr. Hayde mata on 09-18-2022 RSV Ag Immune stain Ql (Tiss) [facility] 36on 09-10-2022 36 Patient called in. H e had a Trimix teaching on 09/06/[address] Abdalla was to sent script for trimix to [facility]. Patient has not received rx. No script in media at this time. Please write script and fax to [facility]. Let patient know we will update him once rx is sent. Normal [facility] Absolute lymphocyte countOrd ered By: Dr. Roca on 08-22-2022 Lymphocytes Auto (Unsp spec) [#/Vol] 1.69 10*3/uL 0.83-4.51 [facility] Basophil percentageOrdered B y: Dr. Roca on 08-22-2022 Basophils/100 WBC (Bld) 0.5 % 0-1 [facility] Bilirubin [Mass/Vol] 0.70 mg/dL 0.20-1.00 [facility] Comment on above: For patients on eltr ombopag therapy, use of Dimension [place] TBIL is not recommended. Chloride [Moles/Vol] 102 mmol/L 98-107 [facility] Eosinophils/100 WBC (Bld) 2.7 % 0-5 [facility] Glucose [Mass/Vol] 127 mg/dL 74-106 [facility] Comment on above: Fasting Glucose resu lt greater than or equal to 126 mg/dL suggests DIABETES MELLITUS per A.D.A. criteria. Neutrophils (Bld) [#/Vol] 3.4 10*3/uL 2.0-7.7 [facility] Neutrophils/100 WBC (Bld) 61.0 % 47-70 [facility] Potassium [Moles/Vol] 4.1 mmol/L 3.5-5.1 [facility] Protein [Mass/Vol] 7.6 g/dL 6.4-8.2 [facility] Sodium [Moles/Vol] 138 mmol/L 136-145 [facility] Testosterone [Mass/Vol] 448.42 ng/dL [facility] Comment on above: CENTRAL 90% REFERENC E RANGES MALE AGE <50 197.44 - 669.58 ng/dL MALE AGE > or = 50 187.72 - 684.19 ng/dL FEMALE AGE <50 8.38 - 35.01 ng/dL FEMALE AGE > or = 50 <7.00 - 35.92 ng/dL Effective as of 05/15/21 WBC (Bld) [#/Vol] 5.6 10*3/uL 4.4-11.0 [facility] Blood erythrocytes count (nu mber/volume)Ordered By: Dr. Roca on 08-22-2022 RBC (Bld) [#/Vol] 5.17 10*6/uL 4.6-6.2 [facility] Blood hemoglobin measurement (mass/volume)Ordered By: Dr. Roca on 08-22-2022 Hemoglobin (Bld) [Mass/Vol] 16.5 g/dL 13.0-16.5 [facility] Blood lymphocytes/100 leukoc ytesOrdered By: Dr. Roca on 08-22-2022 Lymphocytes/100 WBC (Bld) 30.4 % 19-41 [facility] Blood monocytes/100 leukocyt esOrdered By: Dr. Roca on 08-22-2022 Monocytes/100 WBC (Bld) 5.2 % 0-10 [facility] Blood platelet mean volumeOr dered By: Dr. Roca on 08-22-2022 Platelet mean volume (Bld) [Entitic vol] 9.8 fL 6.2-12.0 [facility] Determination of erythrocyte mean corpuscular volume (MCV)Ordered By: Dr. Roca on 08-22-2022 MCV (RBC) [Entitic vol] 89.6 fL 80-94 [facility] Hematocrit Auto (Bld) [Volum e fraction]Ordered By: Dr. Roca on 08-22-2022 Hematocrit (Bld) [Volume fraction] 46.3 % 40-54 [facility] Laboratory - Chemistry and C hemistry - challengeOrdered By: Dr. Roca on 08-22-2022 ALP [Catalytic activity/Vol] 62 U/L 45-117 [facility] ALT [Catalytic activity/Vol] 35 U/L 16-61 [facility] CO2 [Moles/Vol] 28.0 mmol/L 21.0-32.0 [facility] Globulin (S) [Mass/Vol] 3.4 g/dL 2.2-4.2 [facility] Urea nitrogen/Creatinine [Mass ratio] 13.5 mg/mg 10-20 [facility] Laboratory - Hematology and Cell countsOrdered By: Dr. Roca on 08-22-2022 Erythrocyte distribution width (RBC) [Entitic vol] 41.2 fL 35.1-43.9 [facility] Erythrocyte distribution width (RBC) [Ratio] 12.6 % 11.6-14.6 [facility] Immature granulocytes/100 WBC (Bld) 0.200 % 0.0-0.9 [facility] Comment on above: IG% - Immature Granu locytes (promyelocytes, myelocytes and metamyelocytes) > 1% indicates that a LEFT SHIFT is Present. MCH (RBC) [Entitic mass] 31.9 pg 27.0-32.0 [facility] Nucleated RBC/100 WBC (Bld) [Ratio] 0 % 0-5 [facility] MCHC Auto (RBC) [Mass/Vol]Or dered By: Dr. Roca on 08-22-2022 MCHC (RBC) [Mass/Vol] 35.6 g/dL 32-36 [facility] No Panel InformationOrdered By: Dr. Roca on 08-22-2022 Estimated GFR (MDRD) Amer 99 mL/min >60 [facility] Comment on above: GFR Calc Estimated GFR (MDRD) Non-Af Amer 82 mL/min >60 [facility] Comment on above: Non- GFR Calc Thyroid Stimulating Hormone (TSH) 1.49 uIU/mL 0.358-3.74 [facility] Vitamin D 25-Hydroxy 22.0 ng/mL [facility] Comment on above: Vitamin D 25(OH) Sta tus Range Deficiency <20 ng/mL (50nmol/L) Insufficiency 20 - 30 ng/mL (50 - 75 nmol/L) Sufficiency 30 - 100 ng/mL (75 - 250 nmol/L) Toxicity >100 ng/mL (>250 nmol/L) Platelets bldOrdered By: Dr. Roca on 08-22-2022 Platelets (Bld) [#/Vol] 214 10*3/uL 150-450 [facility] Serum or plasma albumin charmaine urement (mass/volume)Ordered By: Dr. Roca on 08-22-2022 Albumin [Mass/Vol] 4.2 g/dL 3.2-5.0 [facility] Serum or plasma albumin/glob ulin mass ratioOrdered By: Dr. Roca on 08-22-2022 Albumin/Globulin [Mass ratio] 1.2 {ratio} 0.9-2.4 [facility] Serum or plasma calcium charmaine urement (mass/volume)Ordered By: Dr. Roca on 08-22-2022 Calcium [Mass/Vol] 9.8 mg/dL 8.5-10.1 [facility] Serum or plasma creatinine m easurement (mass/volume)Ordered By: Dr. Roca on 08-22-2022 Creatinine [Mass/Vol] 0.96 mg/dL 0.70-1.30 [facility] Comment on above: The validity of the calculated GFR & GFRAA in patients over 70 years has not been determined. Clinical correlation is essential. Serum or plasma urea nitroge n measurement (mass/volume)Ordered By: Dr. Roca on 08-22-2022 Urea nitrogen [Mass/Vol] 13 mg/dL 7-18 [facility] Thin prep Papanicolaou smear with manual screeningOrdered By: Dr. Roca on 08-22-2022 Thin prep Papanicolaou smear with manual screening 18 U/L 15-37 [facility] Thin prep Papanicolaou smear with manual screening 8 5-15 [facility] Absolute lymphocyte counton 02-19-2022 Lymphocytes Auto (Unsp spec) [#/Vol] 1.56 10*3/uL 0.83-4.51 [facility] Work Phone: Basophil percentageon 2021 Basophils/100 WBC (Bld) 0.6 % 0-1 [facility] Work Phone: Bilirubin [Mass/Vol] 0.60 mg/dL 0.20-1.00 [facility] Work Phone: Comment on above: For patients on eltr ombopag therapy, use of Dimension [place] TBIL is not recommended. Chloride [Moles/Vol] 102 mmol/L 98-107 [facility] Work Phone: [phone] Eosinophils/100 WBC (Bld) 3.4 % 0-5 [facility] Work Phone: Glucose [Mass/Vol] 96 mg/dL 74-106 [facility] Work Phone: Neutrophils (Bld) [#/Vol] 3.2 10*3/uL 2.0-7.7 [facility] Work Phone: [phone] Neutrophils/100 WBC (Bld) 60.7 % 47-70 [facility] Work Phone: Potassium [Moles/Vol] 4.1 mmol/L 3.5-5.1 [facility] Work Phone: [phone] Protein [Mass/Vol] 7.1 g/dL 6.4-8.2 [facility] Work Phone: [phone] Sodium [Moles/Vol] 137 mmol/L 136-145 [facility] Work Phone: Testosterone [Mass/Vol] 552.47 ng/dL [facility] Work Phone: Comment on above: CENTRAL 90% REFERENC E RANGES MALE AGE <50 197.44 - 669.58 ng/dL MALE AGE > or = 50 187.72 - 684.19 ng/dL FEMALE AGE <50 8.38 - 35.01 ng/dL FEMALE AGE > or = 50 <7.00 - 35.92 ng/dL Effective as of 05/15/21 WBC (Bld) [#/Vol] 5.3 10*3/uL 4.4-11.0 [facility] Work Phone: Blood erythrocytes count (nu mber/volume)on 02-19-2022 RBC (Bld) [#/Vol] 4.90 10*6/uL 4.6-6.2 [facility] Work Phone: Blood hemoglobin measurement (mass/volume)on 02-19-2022 Hemoglobin (Bld) [Mass/Vol] 15.1 g/dL 13.0-16.5 [facility] Work Phone: Blood lymphocytes/100 leukoc yteson 02-19-2022 Lymphocytes/100 WBC (Bld) 29.3 % 19-41 [facility] Work Phone: Blood monocytes/100 leukocyt eson 02-19-2022 Monocytes/100 WBC (Bld) 5.8 % 0-10 [facility] Work Phone: Blood platelet mean volumeon 02-19-2022 Platelet mean volume (Bld) [Entitic vol] 10.1 fL 6.2-12.0 [facility] Work Phone: Determination of erythrocyte mean corpuscular volume (MCV)on 02-19-2022 MCV (RBC) [Entitic vol] 88.8 fL 80-94 [facility] Work Phone: Hematocrit Auto (Bld) [Volum e fraction]on 02-19-2022 Hematocrit (Bld) [Volume fraction] 43.5 % 40-54 [facility] Work Phone: Laboratory - Chemistry and C hemistry - challengeon 02-19-2022 ALP [Catalytic activity/Vol] 57 U/L 45-117 [facility] Work Phone: ALT [Catalytic activity/Vol] 31 U/L 16-61 [facility] Work Phone: CO2 [Moles/Vol] 29.0 mmol/L 21.0-32.0 [facility] Work Phone: Globulin (S) [Mass/Vol] 3.3 g/dL 2.2-4.2 [facility] Work Phone: Urea nitrogen/Creatinine [Mass ratio] 16.1 mg/mg 10-20 [facility] Work Phone: Laboratory - Hematology and Cell countson 02-19-2022 Erythrocyte distribution width (RBC) [Entitic vol] 40.8 fL 35.1-43.9 [facility] Work Phone: Erythrocyte distribution width (RBC) [Ratio] 12.5 % 11.6-14.6 [facility] Work Phone: Immature granulocytes/100 WBC (Bld) 0.200 % 0.0-0.9 [facility] Work Phone: Comment on above: IG% - Immature Granu locytes (promyelocytes, myelocytes and metamyelocytes) > 1% indicates that a LEFT SHIFT is Present. MCH (RBC) [Entitic mass] 30.8 pg 27.0-32.0 [facility] Work Phone: Nucleated RBC/100 WBC (Bld) [Ratio] 0 % 0-5 [facility] Work Phone: MCHC Auto (RBC) [Mass/Vol]on 02-19-2022 MCHC (RBC) [Mass/Vol] 34.7 g/dL 32-36 [facility]: No Panel Informationon 02-19 Estimated GFR (MDRD) Amer 112 mL/min >60 [facility] Work Phone: Comment on above: GFR Calc Estimated GFR (MDRD) Non-Af Amer 92 mL/min >60 [facility] Work Phone: Comment on above: Non- GFR Calc Prostate Specific Antigen Screen 0.12 ng/mL 0.00-4.00 [facility] Work Phone: Comment on above: This test was perfor med using the TPSA assay method for [employer] chemistry system. Values obtained with differentassay methods cannot be used interchangably.When changing PSA assays in the course of monitoring apatient, additional sequential testing should be carriedout to confirm baseline values. Thyroid Stimulating Hormone (TSH) 1.30 uIU/mL 0.358-3.74 [facility] Work Phone: Vitamin D 25-Hydroxy 19.2 ng/mL [facility] Work Phone: Comment on above: Vitamin D 25(OH) Sta tus Range Deficiency <20 ng/mL (50nmol/L) Insufficiency 20 - 30 ng/mL (50 - 75 nmol/L) Sufficiency 30 - 100 ng/mL (75 - 250 nmol/L) Toxicity >100 ng/mL (>250 nmol/L) Platelets bldon 02-19-2022 Platelets (Bld) [#/Vol] 208 10*3/uL 150-450 [facility] Work Phone: Serum or plasma albumin charmaine urement (mass/volume)on 02-19-2022 Albumin [Mass/Vol] 3.8 g/dL 3.2-5.0 [facility] Work Phone: Serum or plasma albumin/glob ulin mass ratioon 02-19-2022 Albumin/Globulin [Mass ratio] 1.2 {ratio} 0.9-2.4 [facility] Work Phone: Serum or plasma calcium charmaine urement (mass/volume)on 02-19-2022 Calcium [Mass/Vol] 9.3 mg/dL 8.5-10.1 [facility] Work Phone: Serum or plasma creatinine m easurement (mass/volume)on 02-19-2022 Creatinine [Mass/Vol] 0.87 mg/dL 0.70-1.30 [facility] Work Phone: Comment on above: The validity of the calculated GFR & GFRAA in patients over 70 years has not been determined. Clinical correlation is essential. Serum or plasma urea nitroge n measurement (mass/volume)on 02-19-2022 Urea nitrogen [Mass/Vol] 14 mg/dL 7-18 [facility] Work Phone: Thin prep Papanicolaou smear with manual screeningon 02-19-2022 Thin prep Papanicolaou smear with manual screening 17 U/L 15-37 [facility] Work Phone: Thin prep Papanicolaou smear with manual screening 6 5-15 [facility] Work Phone: [facility] Procedure Noteon [facility]) Final Surgical Pathology Rep [facility] 03-31-2018 Final Surgical Pathology Report . Pathology ReportsAccession: Collected Date/Time: Received Date/Time: Pathologist:[id number] 03/27/2018 10:45 EDT 03/30/2018 07:34 EDT DO [...] soft tissue. TS -1Dictated by TIBURCIO PRASAD ([facility])MICROSCOPIC DESCRIPTION:A,B&C) Slides reviewed.Electronically Signed byPathology Report verified by [facility] signed by CHRISTIAN DAVIS DOSign out Date: 03/31/2018 12:04Performing Lab: [facility], [address] [place] [address] ([place]) Comment on above: Performed By: #### S PFR ####[facility] [place] [address] [facility] ENDO Procedure Recordon 03-27-2018 AO ENDO Procedure Record Normal [facility] ([place]) Depart Summaryon 03-27-2018 Depart Summary Normal [facility] ([place]) History and Physicalon 03-27 History and Physical Normal [facility] ([place]) [facility] Patient Summaryon 03-27-2018 [facility] Patient Summary Normal [facility] ([place]) Vital Signs Date Time Vital Sign Value Performing Clinician Faci lity 06-03-2025 13:47-0400 Body temperature 97.7 [degF] Dr. Luli Roca MD Work Phone: [facility] 06-03-2025 13:47-0400 Diastolic blood pressure 72 mm[Hg] Dr. Luli Roca MD Work Phone: [facility] 06-03-2025 13:47-0400 Heart rate 57 /min Dr. Luli Roca MD Work Phone: [facility] 06-03-2025 13:47-0400 Respiratory rate 16 /min Dr. Luli Roca MD Work Phone: [facility] 06-03-2025 13:47-0400 SaO2% (BldA) [Mass fraction] 100 % Dr. Luli Roca MD Work Phone: [facility] 06-03-2025 13:47-0400 Systolic blood pressure 141 mm[Hg] Dr. Luli Roca MD Work Phone: [facility] 06-03-2025 09:54-0400 Body height 172.[address] Luli Roca MD Work Phone: [facility] 06-03-2025 09:54-0400 Body mass index (BMI) [Ratio] 28.8 kg/m2 Dr. Luli Roca MD Work Phone: [facility] 06-03-2025 09:54-0400 Body weight 86.[address] Luli Roca MD Work Phone: [facility] 01-20-2024 08:44-0400 Body temperature 96.7 [degF] Dr. Luli Roca Work Phone: [facility] 01-20-2024 08:44-0400 Body weight 86.[address] Luli Roca Work Phone: [facility] 01-20-2024 08:44-0400 Diastolic blood pressure 77 mm[Hg] Dr. Luli Roca Work Phone: [facility] 01-20-2024 08:44-0400 Heart rate 75 /min Dr. Luli Roca Work Phone: [facility] 01-20-2024 08:44-0400 Respiratory rate 17 /min Dr. Luli Roca Work Phone: [facility] 01-20-2024 08:44-0400 SaO2% (BldA) [Mass fraction] 98 % Dr. Luli Roca Work Phone: [facility] 01-20-2024 08:44-0400 Systolic blood pressure 128 mm[Hg] Dr. Luli Roca Work Phone: [facility] Encounters Encounter Date Encounter Type Care Provider Facility Start: 06-06-2025 ambulatory Michael Onofre lity:[facility] Start: 06-03-2025 End: 06-03-2025 Admission to same day surgery center Dr. Michael Poe MD -[facility] Day [facility] Start: 06-03-2025 End: 06-03-[address] Luli Roca MD Work Phone: -[facility] Start: 05-23-2025 End: 05-23-[address] Luli Roca MD Work Phone: -Cat Scan [facility] Start: 05-23-2025 End: 05-23-[address] Luli Roca MD -Cat Scan [facility] Work Phone: Start: 05-23-2025 End: 05-23-2025 ambulatory Luli Roca Facility:[facility] Start: 04-11-2025 End: 04-11-[address] Luli Roca MD Work Phone: [facility] Work Phone: Start: 04-11-2025 End: 04-11-[address] Luli Roca MD -Laboratory Work Phone: Start: 04-11-2025 End: 04-11-2025 ambulatory Luli [facility] Facility:[facility] Start: 02-24-2025 End: 02-24-[address] Luli Roca MD Work Phone: [facility] Work Phone: Start: 02-24-2025 End: 02-24-[address] Luli Roca MD -Laboratory Work Phone: Start: 02-24-2025 End: 02-24-2025 ambulatory Luli [facility] Facility:[facility] Start: 12-03-2024 End: 12-03-[address] Luli Roca MD -Laboratory Work Phone: Start: 12-03-2024 End: 12-03-2024 ambulatory [facility] Facility:[facility] Start: 08-17-2024 End: 08-17-2024 ambulatory [facility] Facility:[facility] Start: 06-17-2024 ambulatory [facility] Facility:[facility] Start: 05-03-2024 End: 05-03-2024 Telephone encounter Howard Abdalla MD Work Phone: [facility] Comment on above: Med Refill Start: 02-19-2024 End: 02-19-[address] Luli Roca Work Phone: [facility] Work Phone: Start: 02-18-2024 End: 02-18-[address] Luli Roca Work Phone: [facility] Work Phone: Start: 02-18-2024 End: 02-18-[address] Luli Roca Work Phone: [facility]-Radiology, [facility] Work Phone: Start: 02-06-2024 End: 02-06-[address] Luli Roca Work Phone: [facility] Work Phone: Start: 02-06-2024 End: 02-06-[address] Luli Roca Work Phone: [facility]-Laboratory, Specimen Work Phone: Start: 02-06-2024 End: 02-06-[address] Luli Roca Work Phone: [facility] Work Phone: Start: 01-20-2024 End: 01-20-[address] Luli Roca Work Phone: [facility] Work Phone: Start: 08-19-2023 End: 08-19-2023 ambulatory [facility] Work Phone: Start: 08-19-2023 End: 08-19-2023 Patient encounter procedure [facility]-Laboratory, Phy Office 3rd Prr Start: 02-20-2023 End: 02-20-2023 ambulatory [facility] Work Phone: Start: 02-20-2023 End: 02-20-2023 Patient encounter procedure [facility]-Laboratory Start: 02-06-2023 End: 02-06-2023 ambulatory [facility] Work Phone: Start: 02-06-2023 End: 02-06-2023 Patient encounter procedure [facility]-MRI - [facility] Start: 12-02-2022 End: 12-02-2022 ambulatory [facility] Work Phone: Start: 12-02-2022 End: 12-02-2022 Patient encounter procedure [facility]-Radiology, [facility] Start: 09-18-2022 End: 09-18-2022 [facility] Start: 09-06-2022 End: 09-06-2022 ambulatory [facility] Start: 08-22-2022 End: 08-22-2022 ambulatory [facility] Work Phone: Start: 08-22-2022 End: 08-22-2022 Patient encounter procedure [facility]-Laboratory, Phy Office 3rd Flr Start: 02-19-2022 End: 02-19-[address] Luli Roca [facility] Start: 02-08-2022 Non-patient / Non-visit Dr. Jake Roca Work Phone: [facility] Start: 02-08-2022 End: 02-08-[address] Luli Roca Work Phone: [facility]-Pulmonary Services/Neurology Start: 01-22-2022 End: 01-22-[address] Luli [facility] Start: 01-22-[address] Luli hines [facility] Start: 12-28-2021 End: 12-28-[address] Luli Roca [facility] Start: 03-27-2018 End: 03-27-2018 Ambulatory [facility] Facility:B Procedures Date Procedure Procedure Detail Performing Clinician Start: 06-03-2025 Extracorporeal shock wave lith[address]ripsy Dr[address] Luli Roca MD Work Phone: Start: 06-03-2025 Plain X-ray abdomen Dr. Luli Roca MD Work Phone: Start: 05-23-2025 CT of abdomen and pe lvis without contrast Dr. Luli Roca MD Work Phone: Start: 05-23-2025 Assay of prostate sp ecific antigen total Dr. Luli Roca MD Work Phone: Comment on above: This test was perfor med using the [employer] tPSA method. Measured values of a patient sample can vary depending on the testing procedure used. PSA values determined on patient samples by different testing procedures cannot be used interchangeably. If there is a change in PSA assays while monitoring therapy, sequential testing should be performed to confirm baseline values. Start: 05-23-[address] Luli hines MD Work Phone: Start: 02-24-2025 Vitamin D, 25-hydrox y measurement Dr. Luli Roca MD Work Phone: Comment on above: Vitamin D StatusDefi ciency: <20 ng/mL (50nmol/L)Insufficiency: 20-30 ng/mL (50-75 nmol/L)Sufficiency: 30-100 ng/mL (75-250 nmol/L)Toxicity: >100 ng/mL (>250 nmol/L) Start: 12-03-2024 Measurement of renal function Dr. Luli Roca MD Work Phone: Comment on above: GFR Calc Start: 02-18-2024 X-ray of cervical spine Dr. Luli Roca Work Phone: Start: 08-19-2023 Plain X-ray of shoulder Start: 02-06-2023 MRI of lumbar spine Start: 12-02-2022 Pelvis X-ray Start: 12-02-2022 Radiography of sacrococcygeal spine Start: 12-02-2022 X-ray of lumbar spin e, two or three views Start: 12-28-2021 X-ray of lumbar spin e, two or three views Dr. Luli Roca Work Phone: H/O: surgery S/P excision of skin lesion, follow-up exam Dr. Luli Roca Work Phone: Comment on above: Patient presents fol lowing excision of a sebaceous cyst in clinic on 02/06/2024. Overall he is well-healing on exam apart from a small seroma. I have advised him that if this either spontaneously drains or becomes concerning for infection to notify us. However, I otherwise give him simple wound care instructions and shared with him the results of his pathology which showed a giant cell reaction likely related to a inflamed epidermal inclusion cyst. Influenza Types A,B Direct FA (MICHAEL) Respiratory syncytia l virus antigen assay Plan of Treatment Date Care Activity Detail Author Start: 06-14-2025 DTaP/Tdap/Td Vaccines (2 - Td or Tdap) DTaP/Tdap/Td Vaccines (2 - Td or Tdap) [facility] Start: 06-03-2025 Ambulation without limitation [facility] Start: 06-03-2025 Medical regimen orders management [facility] Start: 06-03-2025 Medication education [facility] Start: 06-03-2025 Patient discharge [facility] Start: 06-03-2025 Taking patient vital signs [facility] Start: 06-03-2025 [facility] Start: 06-20-2024 Influenza vaccination Influenza Vaccine (#1) [facility] Start: 10-20-2023 Medicare Advantage Annual Wellness Visit Medicare Advantage Annual Wellness Visit [facility] Start: 06-20-2023 COVID-19 Vaccine ( season) COVID-19 Vaccine ( season) [facility] Start: 04-07-2020 Zoster Vaccines (2 of 2) Zoster Vaccines (2 of 2) [facility] Start: 02-10-2020 Pneumococcal Vaccine: 65+ Years (2 of 2 - PCV) Pneumococcal Vaccine: 65+ Years (2 of 2 - PCV) [facility] Start: 2011 RSV Immunization aged 60 or older (1 - 1-dose 60+ series) RSV Immunization aged 60 or older (1 - 1-dose 60+ series) [facility] Start: 1969 Diabetes mellitus screening Diabetes Screening [facility] Start: 1969 Hepatitis C screening Hepatitis C Screening [facility] Start: 1963 Depression Screening Depression Screening [facility] Start: 1950 Lipid panel Lipid Panel [facility] Start: 1950 Screening for malignant neoplasm of colon [facility] Immunizations Immunization Date Immunization Notes Care Provider Fa cility 07-02-2021 influenza virus vaccine, unspecified formulation Howard Abdalla MD Work Phone: [facility] 01-15-2021 Covid (Moderna) Dr. Luli Roca Work Phone: [facility] 12-18-2020 Covid (Moderna) Dr. Luli Roca Work Phone: [facility] Payers Date Payer Category Payer Self-pay [id number] 2021 Medicare [employer] [id number] 2021-Present [address] [place] [address] Medicare HMO [id number] 2016 Medicare [id number] Medicare [id number] Unknown [id number] Unknown [id number] Unknown [id number] Unknown [id number] Unknown [id number] Unknown [id number] Unknown [id number] Unknown [id number] Social History Date Type Detail Facility Start: 04-21-2018 End: 01-20-2024 Tobacco smoking status NHIS Unknown if ever smoked [facility] Start: 1950 Sex Assigned At Male [facility] Start: 09-06-2022 End: 05-27-2025 Tobacco smoking status NHIS Never smoked tobacco [facility] Start: 09-06-2022 Tobacco use and exposure Smokeless tobacco non-user [facility] Start: 09-06-2022 Alcoholic beverage intake Current drinker of alcohol (finding) [facility] Start: 09-06-2022 History of Social function [facility] Start: 09-06-2022 Tobacco use panel [facility] Start: 1950 Sex assigned at Not on file [facility] Health Goals Date Patient Goal Desired Activity /State Mental Status Date Assessment Result Facility 06-03-2025 Cognitive function Voice/Name;Touch/Tristenki roxie [facility] Work Phone: Clinical Notes 05-03-2024 to 06-03-2025 Note Date & Type Note Facility 06-03-2025 Consult note [facility] 06-03-2025 Consult note [facility] 06-03-2025 Discharge summary [facility] 06-03-2025 Procedure note [facility] 06-03-2025 Consult note Note Date/Time June 03, 2025 10:08am [facility] Medical Records Department [address] [place] [address] Pre-Anesthesia Evaluation 06/03/25 1005 MR#: [id number] Acct: [id number] Name: RUBEN REED Rep #:[id number] : 1950 75 From: Max Singh PCP: Dr. Luli Roca MD Status:REG S DC Y Race: C Location: [place] [address] ASA Classification* ASA Classification ASA Classification: 2 Assessment & Plan Anesthesia* Anesthesia Assessment Anesthesia Assessment: Discussed sedation and/or anesthesia options, risks, benefits, and alternatives with patient/parents/legal guardian/POA. Questions invited. The patient/parents/legal guardian/POA seems to understand and agrees to proceedwith anesthesia plan. Reviewed the physical assessment, medical history, allergy history and patient home medications list prior to surgery/procedure/anesthetic and documented any changes. Performed airway and anesthesia risk assessments. Anesthesia Type Anesthesia Type: General History Source History Obtained from:: Patient and Chart Anesthesia Focused Assessment* Temperature: 98.3 F Pulse Rate: 64 Blood Pressure: 127/68 Respiratory Rate: 16 Pulse Ox: 98 Oxygen Delivery Method: Room Air Airway Assessment Mouth opens: >3 cm Mallampati Score: II Teeth Condition: Intact Neck Range of motion (ROM): Full ROM Labs Anesthesia Preop lab: CBC WBC 5.9 K/mm3 (4.4-11.0) 05/23/25 16:14 05/23/25 RBC 4.89 M/mm3 (4.6-6.2) 05/23/25 16:14 05/23/25 Hgb 14.9 g/dL (13.0-16.5) 05/23/25 16:14 05/23/25 Hct 43.2 % (40-54) 05/23/25 16:14 05/23/25 Plt Count 200 K/mm3 (150-450) 05/23/25 16:14 05/23/25 CHEMISTRY Potassium 4.4 mmol/L (3.3-5.1) 05/23/25 16:14 05/23/25 Sodium 137 mmol/L (133-145) 05/23/25 16:14 05/23/25 BUN 16 mg/dL (4-19) 05/23/25 16:14 05/23/25 Creatinine 0.80 mg/dL (0.70-1.20) 05/23/25 16:14 05/23/25 Glucose 97 mg/dL (70-99) 05/23/25 16:14 05/23/25 TSH 2.310 uIU/mL (0.300-4.200) 02/24/25 13:50 05/0 06/13 COAG Pre-Assessment Diagnosis/Proposed Procedure Planned Operative Procedure(s): (R) ESWL,Cystocopy Insertion Stent Anesthesia History Anesthesia History - clinical nursing intern: Anesthesia History - clinical nursing intern Hx Hospitalization No 05/27/25 12:51 Any Problems With Anesthesia No 05/27/25 12:51 Cholinesterase deficiency No 05/27/25 12:51 You/Your Family Experience No 05/27/25 12:51 fever (hyperthermia) with Relationship Recent Exposure to Contagious No 06/03/25 09:54 Disease Does patient have nerve No 05/27/25 12:51 stimulator Patient instructed to have device shut off --Does patient have Pacemaker No 06/03/25 09:54 or ICD? When Was Last Pacemaker Check QUESTION #4 FULL TEXT: You/Your Family Experience fever (hyperthermia) with Anesthesia Last Oral Intake Last Oral intake: Last Oral Intake NPO since 18:30 06/03/25 09:54 Meds taken in AM with sips of No 06/03/25 09:54 water? Meds patient instructed to take am of surgery PONV PONV - clinical nursing intern: PONV - clinical nursing intern Female No 05/27/25 12:51 HX of Motion Sickness No 05/27/25 12:51 HX of N/V After Surgery No 05/27/25 12:51 Non-Smoker Yes 05/27/25 12:51 Duration of Surgery greater No 05/27/25 12:51 than 60 minutes Number of Risk Factors 1 05/27/25 12:51 PONV Score Low Risk 05/27/25 12:51 Height & Weight Height & Weight: Anesthesia: Height & Weight Height 5 ft 8 in 06/03/25 09:54 Weight: 86.2 kg 06/03/25 09:54 Body Mass Index (BMI) 28.8 06/03/25 09:54 Respiratory Assessment Respiratory Assessment - clinical nursing intern: Respiratory Tract Infection Hx - clinical nursing intern Hx Respiratory Tract Infection No 05/27/25 12:51 STOP Sleep Apnea STOP Sleep Apnea - clinical nursing intern: STOP Sleep Apnea - clinical nursing intern Hx Hypertension Yes 05/27/25 12:51 Hx Sleep Apnea No 05/27/25 12:51 CPAP BIPAP Do you snore loudly (louder No 05/27/25 12:51 than talking or can be heard Do you often feel tired/ No 05/27/25 12:51 fatigued/ sleepy during daytime? Has anyone observed you stop No 05/27/25 12:51 breathing during sleep? STOP Results Negative 05/27/25 12:51 QUESTION #5 FULL TEXT : Do you snore loudly (louder than talking or can be heard through closed doors)? 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 Specify any problems Hx of Preganancy in last 3 No 05/27/25 12:51 Months Nurse Filling Out Transfusion KARON 05/27/25 12:51 & Questions: Date: 05/27/25 05/27/25 12:51 Time: 12:51 05/27/25 12:51 Patient unable to answer at this time (ie. confused, unrespo /Reproduction History /Reproductive History - clinical nursing intern: /Reproductive Hx- clinical nursing intern Hx Now No 05/27/25 12:51 Gestational Age (in weeks): EDC: Hx Hx Para Hx Section SAB No 05/27/25 12:51 Active Medications Active Medications: Current Medications Generic Name Dose Route Start Last Admin Trade Name Freq PRN Reason Stop Dose Admin Cefazolin Sodium 2 gm/ Sodium 110 mls @ 200 mls/hr 06/03/25 11:25 Chloride IV 06/03/25 11:57 INTRAOP ONE Lactated Ringer's 1,000 mls @ 15 mls/hr 06/03/25 09:30 06/03/25 10:00 IV 15 mls/hr .Q48H KOBE Administration PFSH Medical History (Updated 05/27/25 @ 12:50 by Jahaira Roa) Wears glasses Cancer Bladder disease Injury of back Non-smoker Hypertension Home Medications ?Medication ?Instructions ?Recorded ?Last Taken ?Type tamsulosin 0.4 mg capsule 0.4 mg PO DAILY 04/04/23 Unk nown History losartan 50 mg tablet 50 mg PO DAILY 05/27/25 Unkn own History pravastatin 10 mg tablet 10 mg PO QHS 05/27/25 Unknow n History Allergy/AdvReac Type Severity Reaction Status Date / Time No Known Allergies Allergy Verified 06/03/25 09:53 Family History (Updated 01/20/24 @ 08:44 by Isha Martinez) Brother Diabetes Mother Thyroid disorder Sister Heart disease Surgical History (Updated 05/27/25 @ 12:50 by Jahaira Roa) Hx of colonoscopy History of back surgery History of left hip replacement History of right hip replacement Social History (Updated 01/20/24 @ 08:44 by Isha Martinez) Smoking Status: Never smoker alcohol intake: current alcohol intake frequency: a few times a month Review of Systems (Anesthesia) ROS Narrative System reviewed and no additional complaints, except as documented. 06/03/25 1008 <Electronically signed by Max Zelaya MD> Date _ Max Zelaya MD Cosigner Signature: Date CC: ~ Signed [facility] Work Phone: [phone] 561-176108-15-2025 Consult note [facility] Medical Records Department [address] [place] [address] Pre-Anesthesia Evaluation 06/03/25 1005 MR#: [id number] Acct: [id number] Name: RUBEN REED Rep #:[id number] : 1950 75 From: Max Singh PCP: Dr. Luli Roca MD Status:REG S DC Y Race: C Location: [place] [address] ASA Classification* ASA Classification ASA Classification: 2 Assessment & Plan Anesthesia* Anesthesia Assessment Anesthesia Assessment: Discussed sedation and/or anesthesia options, risks, benefits, and alternatives with patient/parents/legal guardian/POA. Questions invited. The patient/parents/legal guardian/POA seems to understand and agrees to proceedwith anesthesia plan. Reviewed the physical assessment, medical history, allergy history and patient home medications list prior to surgery/procedure/anesthetic and documented any changes. Performed airway and anesthesia risk assessments. Anesthesia Type Anesthesia Type: General History Source History Obtained from:: Patient and Chart Anesthesia Focused Assessment* Temperature: 98.3 F Pulse Rate: 64 Blood Pressure: 127/68 Respiratory Rate: 16 Pulse Ox: 98 Oxygen Delivery Method: Room Air Airway Assessment Mouth opens: >3 cm Mallampati Score: II Teeth Condition: Intact Neck Range of motion (ROM): Full ROM Labs Anesthesia Preop lab: CBC WBC 5.9 K/mm3 (4.4-11.0) 05/23/25 16:14 05/23/25 RBC 4.89 M/mm3 (4.6-6.2) 05/23/25 16:14 05/23/25 Hgb 14.9 g/dL (13.0-16.5) 05/23/25 16:14 05/23/25 Hct 43.2 % (40-54) 05/23/25 16:14 05/23/25 Plt Count 200 K/mm3 (150-450) 05/23/25 16:14 05/23/25 CHEMISTRY Potassium 4.4 mmol/L (3.3-5.1) 05/23/25 16:14 05/23/25 Sodium 137 mmol/L (133-145) 05/23/25 16:14 05/23/25 BUN 16 mg/dL (4-19) 05/23/25 16:14 05/23/25 Creatinine 0.80 mg/dL (0.70-1.20) 05/23/25 16:14 05/23/25 Glucose 97 mg/dL (70-99) 05/23/25 16:14 05/23/25 TSH 2.310 uIU/mL (0.300-4.200) 02/24/25 13:50 05/06/13 COAG Pre-Assessment Diagnosis/Proposed Procedure Planned Operative Procedure(s): (R) ESWL,Cystocopy Insertion Stent Anesthesia History Anesthesia History - clinical nursing intern: Anesthesia History - clinical nursing intern Hx Hospitalization No 05/27/25 12:51 Any Problems With Anesthesia No 05/27/25 12:51 Cholinesterase deficiency No 05/27/25 12:51 You/Your Family Experience No 05/27/25 12:51 fever (hyperthermia) with Relationship Recent Exposure to Contagious No 06/03/25 09:54 Disease Does patient have nerve No 05/27/25 12:51 stimulator Patient instructed to have device shut off --Does patient have Pacemaker No 06/03/25 09:54 or ICD? When Was Last Pacemaker Check QUESTION #4 FULL TEXT: You/Your Family Experience fever (hyperthermia) with Anesthesia Last Oral Intake Last Oral intake: Last Oral Intake NPO since 18:30 06/03/25 09:54 Meds taken in AM with sips of No 06/03/25 09:54 water? Meds patient instructed to take am of surgery PONV PONV - clinical nursing intern: PONV - clinical nursing intern Female No 05/27/25 12:51 HX of Motion Sickness No 05/27/25 12:51 HX of N/V After Surgery No 05/27/25 12:51 Non-Smoker Yes 05/27/25 12:51 Duration of Surgery greater No 05/27/25 12:51 than 60 minutes Number of Risk Factors 1 05/27/25 12:51 PONV Score Low Risk 05/27/25 12:51 Height & Weight Height & Weight: Anesthesia: Height & Weight Height 5 ft 8 in 06/03/25 09:54 Weight: 86.2 kg 06/03/25 09:54 Body Mass Index (BMI) 28.8 06/03/25 09:54 Respiratory Assessment Respiratory Assessment - clinical nursing intern: Respiratory Tract Infection Hx - clinical nursing intern Hx Respiratory Tract Infection No 05/27/25 12:51 STOP Sleep Apnea STOP Sleep Apnea - clinical nursing intern: STOP Sleep Apnea - clinical nursing intern Hx Hypertension Yes 05/27/25 12:51 Hx Sleep Apnea No 05/27/25 12:51 CPAP BIPAP Do you snore loudly (louder No 05/27/25 12:51 than talking or can be heard Do you often feel tired/ No 05/27/25 12:51 fatigued/ sleepy during daytime? Has anyone observed you stop No 05/27/25 12:51 breathing during sleep? STOP Results Negative 05/27/25 12:51 QUESTION #5 FULL TEXT : Do you snore loudly (louder than talking or can be heard through closeddoors)? 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 Specify any problems Hx of Preganancy in last 3 No 05/27/25 12:51 Months Nurse Filling Out Transfusion FrancisZEYNEPREKHA 05/27/25 12:51 & Questions: Date: 05/27/25 05/27/25 12:51 Time: 12:51 05/27/25 12:51 Patient unable to answer at this time (ie. confused, unrespo /Reproduction History /Reproductive History - clinical nursing intern: /Reproductive Hx- clinical nursing intern Hx Now No 05/27/25 12:51 Gestational Age (in weeks): EDC: Hx Hx Para Hx Section SAB No 05/27/25 12:51 Active Medications Active Medications: Current Medications Generic Name Dose Route Start Last Admin Trade Name Freq PRN Reason Stop Dose Admin Cefazolin Sodium 2 gm/ Sodium 110 mls @ 200 mls/hr 06/03/25 11:25 Chloride IV 06/03/25 11:57 INTRAOP ONE Lactated Ringer's 1,000 mls @ 15 mls/hr 06/03/25 09:30 06/03/25 10:00 IV 15 mls/hr .Q48H KOBE Administration PFSH Medical History (Updated 05/27/25 @ 12:50 by Jahaira Roa) Wears glasses Cancer Bladder disease Injury of back Non-smoker Hypertension Home Medications ?Medication ?Instructions ?Recorded ?Last Taken ?Type tamsulosin 0.4 mg capsule 0.4 mg PO DAILY 04/04/23 Unk nown History losartan 50 mg tablet 50 mg PO DAILY 05/27/25 Unkn own History pravastatin 10 mg tablet 10 mg PO QHS 05/27/25 Unknow n History Allergy/AdvReac Type Severity Reaction Status Date / Time No Known Allergies Allergy Verified 06/03/25 09:53 Family History (Updated 01/20/24 @ 08:44 by Isha Martinez) Brother Diabetes Mother Thyroid disorder Sister Heart disease Surgical History (Updated 05/27/25 @ 12:50 by Jahaira Roa) Hx of colonoscopy History of back surgery History of left hip replacement History of right hip replacement Social History (Updated 01/20/24 @ 08:44 by Isha Martinez) Smoking Status: Never smoker alcohol intake: current alcohol intake frequency: a few times a month Review of Systems (Anesthesia) ROS Narrative System reviewed and no additional complaints, except as documented. 06/03/25 1008 MD> Date _ Max Zelaya MD Cosigner Signature: Date CC: ~ Signed [facility]08-15-2025 Radiology Diagnostic study note [facility] Imaging Services [address] [place] [address] Abdomen Single View MR#: [id number] Acct: [id number] Name: RUBEN REED Rep #: [id number] : 1950 M 75 From: Reddy Guerrero MD PCP: Dr. Luli Roca MD Status: REG S DC Study:Abdomen Single View Date of Exam: 06/03/25 Exam# [id number] Ordering Dr: Francis Poe MD PROCEDURE: ABDOMEN SINGLE VIEW 06/03/2025 REASON FOR EXAM: KIDNEY STONE TECHNIQUE: ABDOMEN SINGLE VIEW COMPARISON: Prior CT scan of the abdomen dated May 23, 2025. FINDINGS: Bowel gas: Fecal material is seen throughout the colon. Calcifications: 7 mm calcification overlying the lower pole calyx of the right kidney. Bones: There are degenerative changes of the spine. Status post bilateral hip replacement. Other: RAD/Abdomen Single View IMPRESSION: 7 mm calcification overlying the lower pole calyx of the right kidney. Reading Location: [place] [address] CC: Dr. Michael Poe MD; Dr. Luli Roca MD ~ Movie Extra: Signed [facility]08-04-2025 Radiology Diagnostic study note [facility] Imaging Services [address] [place] [address] Abdomen/Pelvis without Cont MR#: [id number] Acct: [id number] Name: RUBEN REED Rep #: [id number] : 1950 M 75 From: Lucas Sanders MD PCP: Dr. Luli Roca MD Status: REG C RIC Study:Abdomen/Pelvis without Cont Date of Exa m: 05/23/25 Exam# [id number] Ordering Dr: Luli Roca MD PROCEDURE: ABDOMEN/PELVIS WITHOUT CONT 05/23/2025 REASON FOR EXAM: CALCULUS OF KIDNEY TECHNIQUE: ABDOMEN/PELVIS WITHOUT CONT Noncontrast technique limits evaluation of the abdominal and pelvic viscera. Coronal and Sagittal reconstruction series were provided. One or more dose reduction techniques were used (e.g., Automated exposure control, adjustment of the mA and/or kV according to patient size, use of iterative reconstruction technique). RADIATION DOSE SUMMARY: CTDlvol: 16.04 mGy DLP: 822.07 mGycm COMPARISON: None. FINDINGS: Lung bases: Clear. Atherosclerotic calcifications of the coronary arteries. Liver: Unremarkable. Gallbladder: Cholelithiasis with no evidence of acute cholecystitis. Spleen: Unremarkable. Pancreas: Unremarkable. Adrenals: Unremarkable. Kidneys: A 1 cm stone at the lower pole of the right kidney. An 8 mm stone at the right ureteral-bladder junction causing moderate right hydroureteronephrosis. Limited evaluation due to streak artifactfrom bilateral hip replacement. Left extrarenal pelvis versus narrowing of the left ureteropelvic junction.. Bladder: Lobulated contour of the bladder indicating chronic outlet obstruction. Reproductive Organs: Unremarkable. Bowel: No bowel wall thickening. No bowel obstruction. Appendix: Unremarkable. Lymph nodes: No lymphadenopathy. Vasculature: Atherosclerotic calcifications of the aorta and iliac arteries. Noaneurysm. Peritoneum / Retroperitoneum: No free air or free fluid. Bones: No acute bony abnormalities. Multilevel degenerate changes of the lumbarspine. Status post total bilateral hip replacement. CT/Abdomen/Pelvis without Cont IMPRESSION: A 1 cm stone at the lower pole of the right kidney. An 8 mm stone at the right ureteral-bladder junction causing moderate right hydroureteronephrosis. Limited evaluation due to streak artifact from bilateral hip replacement. Left extrarenal pelvis versus narrowing of the left ureteropelvic junction. Lobulated contour of the bladder indicating chronic outlet obstruction. Reading Location: [facility] CC: Dr. Luli Roca MD ~ Movie Extra: Signed [facility]07-16-2024 Telephone encounter Note* Telephone Encounter - Suzy Hammond RN - 05/04/2024 11:38 AM EDT Spoke with patient. Made patient aware refill was sent to pharmacy. [id number] Miscellaneous Notes* Telephone Encounter - Suzy Bailon RN - 05/04/2024 11:38 AM EDT Spoke with patient. Made patient aware refill was sent to pharmacy. * Addendum Note - ANNETTE Jenkins CNP - 05/03/2024 2:20 PM EDTAddended by: EFRAIN MONAE on: 05/03/2024 02:20 PM Modules accepted: Orders * Telephone Encounter - ANNETTE Jenkins CNP - 05/03/2024 2:20 PM EDT Medication sent * Telephone Encounter - Nabil Akers - 05/03/2024 12:46 PM EDT Name of caller: Ruben Contact phone number: [phone] Relationship to Patient: patient Provider: Dr. Abdalla Practice: Urology Chief Complaint/Reason for Call: Patient Ruben calling in and wanted to know if Dr. Abdalla could call in [employer] for the patient. Patients last office visit was 08/2022. Please advise Best time of day caller can be reached: Any Patient advised that office/PCP has 24-48 business hours to return their call: N/A documented in this encounterSMemorial Health [id number] Note* Addendum Note - ANNETTE Jenkins CNP - 05/03/2024 2:20 PM EDTAddended by: EFRAIN MONAE on: 05/03/2024 02:20 PM Modules accepted: Orders [id number] Note* Addendum Note - ANNETTE Jenkins CNP - 05/03/2024 2:20 PM EDTAddended by: EFRAIN MONAE on: 05/03/2024 02:20 PM Modules accepted: Orders [facility] [id number] NoteAddended by: EFRAIN MONAE on: 05/03/2024 02:20 PM Modules accepted: [facility]07-15-2024 Telephone encounter Note* Telephone Encounter - ANNETTE Jenkins CNP - 05/03/2024 2:20 PM EDT Medication sent [facility] [id number] Miscellaneous Notes* Addendum Note - ANNETTE Jenkins CNP - 05/03/2024 2:20 PM EDTAddended by: EFRAIN MONAE on: 05/03/2024 02:20 PM Modules accepted: Orders * Telephone Encounter - ANNETTE Jenkins CNP - 05/03/2024 2:20 PM EDT Medication sent * Telephone Encounter - Nabil Akers - 05/03/2024 12:46 PM EDT Name of caller: Ruben Contact phone number: [phone] Relationship to Patient: patient Provider: Dr. Abdalla Practice: Urology Chief Complaint/Reason for Call: Patient Ruben calling in and wanted to know if Dr. Abdalla could call in [employer] for the patient. Patients last office visit was 08/2022. Please advise Best time of day caller can be reached: Any Patient advised that office/PCP has 24-48 business hours to return their call: N/A documented in this [facility]07-15-2024 Telephone encounter Note* Telephone Encounter - Nabil Akers - 05/03/2024 12:46 PM EDT Name of caller: Ruben Contact phone number: [phone] Relationship to Patient: patient Provider: Dr. Abdalla Practice: Urology Chief Complaint/Reason for Call: Patient Ruben calling in and wanted to know if Dr. Abdalla could call in [employer] for the patient. Patients last office visit was 08/2022. Please advise Best time of day caller can be reached: Any Patient advised that office/PCP has 24-48 business hours to return their call: N/A [facility] note Author Latrice Gunn [facility] Note Date/Time June 03, 2025 2: 19pm [facility] Medical Records Department [address] [place] [address] Anesthesia Postop Eval I 06/03/25 1311 MR#: [id number] Acct: [id number] Name: RUBEN REED Rep #:[id number] : 1950 75 From: Latrice Gunn CRNA PCP: Dr. Luli Roca MD Status:REG S DC Y Race: C Location: [place] [address] Anesthesia: Postop Eval I Current Vital Signs Temperature: 97.1 F Pulse Rate: 56 Blood Pressure: 141/70 Respiratory Rate: 12 Pulse Ox: 98 Assessment Airway patent: Yes Spontaneous unlabored respirations: Yes nausea: No Vomiting: No Anesthesia Complication: No Fluid Hydration Crystalloid volume administer (ml): 800 Total IV fluid infused: 800 Progress Note Anesthesia document: Postop Eval 1 completed: Yes 06/03/25 1311 <Electronically signed by Latrice alvarez CRNA> Date _ Latrice Gunn OUTPATIENT SCHEDULER Cosigner Signature: Date CC: ~ Signed [facility] Work Phone: Consult note Author [facility] Note Date/Time June 03, 2025 2: 19pm [facility] Medical Records Department [address] [place] [address] Anesthesia Postop Eval II 06/03/25 1343 MR#: [id number] Acct: [id number] Name: RUBEN REED Rep #:[id number] : 1950 75 From: Max Singh PCP: Dr. Luli Roca MD Status:REG S DC Y Race: C Location: [place] [address] Anesthesia Postop Eval I Sum Postop Eval Completion status Anesthesia document: Postop Eval 1 completed: Yes Anesthesia Postop Eval I Summary Anesthesia Postop Eval I Summary: Anesthesia Postop Eval I: Assessment Summary Airway patent Yes 06/03/25 13:11 OUTPATIENT SCHEDULER.KCRO Spontaneous unlabored Yes 06/03/25 13:11 OUTPATIENT SCHEDULER.KCRO respirations Mental status nausea No 06/03/25 13:11 OUTPATIENT SCHEDULER.KCRO Vomiting No 06/03/25 13:11 OUTPATIENT SCHEDULER.KCRO Anesthesia Postop Eval I: Fluid Summary Crystalloid volume administer 800 06/03/25 13:11 OUTPATIENT SCHEDULER.KCRO (ml) Colloids volume administered ( ml) Blood Product volume administered (ml) Total IV fluid infused 800 06/03/25 13:11 OUTPATIENT SCHEDULER.KCRO Anesthesia Postop Eval I: Summary Notes Anesthesia Complication No 06/03/25 13:11 OUTPATIENT SCHEDULER.KCRO Anesthesia Complication Comment: Post-operative progress note Anesthesia: Postop Eval II Evaluation Mental status: Awake and Calm Pain Level: 1 nausea: No Vomiting: No Complications Anesthesia Complication: No 06/03/25 1343 <Electronically signed by Max Zelaya MD> Date _ Max Zelaya MD Cosigner Signature: Date CC: ~ Signed [facility] Work Phone: Discharge summary Author Michael Poe [facility] Note Date/Time June 03, 2025 2: 19pm [facility] Medical Records Department [address] [place] [address] Instructions for Home/Discharge Instructions 06/03/25 1227 MR#: [id number] Acct: [id number] Name: RUBEN REED Rep #:[id number] : 1950 75 From: Michael Poe MD PCP: Dr. Luli Roca MD Status:REG S DC Discharge Instructions DC O2, CPAP, BIPAP needs Home O2 Discharge instructions: No Dressing / Incision Discharge Activity: Return to Normal Activity and May Not Drive (while taking narcotic pain medications.) Dressing / Incision Call your doctor if you observe: Fever of 101 or Higher Follow Up Care Please Follow Up With: Michael Poe MD When: Call [phone] for an appointment Test Results: Test results from this visit will be discussed in further detail at your follow- up appointment, if applicable. Discharge Plan Admission Primary Reason for Your Visit: right kidney stone Attending Provider: Michael Poe Primary Care Provider: Luli Roca Chi Instructions Print Language: [place] Discharge Orders/Prescriptions Prescriptions: New oxycodone 5 mg tablet 5 mg PO Q6H PRN (Reason: pain) 3 Days Qty: 14 0RF No Action tamsulosin 0.4 mg capsule 0.4 mg PO DAILY losartan 50 mg tablet 50 mg PO DAILY pravastatin 10 mg tablet 10 mg PO QHS Referrals / Follow Up: Luli Roca Chi, MD [Primary Care Provider] - Disposition Disposition (needs filled in before D/C Order can be placed): Home, Self Care 06/03/25 1227<Electronically signed by Michael Poe MD>Michael Poe MD CC: Dr. Luli Roca MD ~ Signed [facility] Work Phone: Evaluation noteNo assessment information available [facility] Work Phone: Evaluation note* Diagnosis Onset Date Resolution Status Sebaceous cyst chronic Sebaceous cyst chronic [facility] Work Phone: Evaluation note* Diagnosis Onset Date Resolution Status Sebaceous cyst chronic Sebaceous cyst chronic S/P excision of skin lesion, follow-up exam acute [facility] Work Phone: Evaluation note* Diagnosis Erectile dysfunction due to arterial insufficiency- [facility] Diagnosis Erectile dysfunction due to arterial insufficiency- Primary documented in [facility] HealthReason for referral (narrative)No reason for referral [facility] Work Phone: Summary Purpose Family History No Family History Records Found Relationship Condition Age at Onset Recorded Date/T radha brother Diabetes mellitus Unknown mother Disorder of thyroid Unknown sister Cardiac disease Unknown Advance Directives No Advanced Directives Records Found Advance Directive Response Recorded Date/ Time Living Will Yes April 21, 2018 8 :10am Power of Film Coater Yes April 21, 2018 8:10am Advance Directive Response Recorded Date/ Time Living Will Yes April 21, 2018 7 :10am Power of Film Coater Yes April 21, 2018 7:10am Advance Directive Response Recorded Date/ Time Do you have a Healthcare Power of Film Coater? No May 27, 2025 12:51pm Chief Complaint and Reason for Visit Chief Complaint LOW BACK PAIN RT SCIATICA. 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 Chief Complaint EXCISION OF SEBACEOU S CYST EXCISION OF BACK MASS Reason for Visit Sebaceous cyst Sebaceous cyst Chief Complaint EXCISION OF SEBACEOU S CYST EXCISION OF BACK MASS Radiculopathy, cervical region 1 1/2 WK FU BACK MASS Reason for Visit Sebaceous cyst Sebaceous cyst S/P excision of skin lesion, follow-up exam Chief Complaint Admit Date Calculus of kidney May 23, 2025 4:1 3pm Chief Complaint Admit Date Calculus of kidney May 23, 2025 4:1 3pm ESWL,Cystocopy Insertion Stent June 032024 9:02am Additional Source Comments (unrecognized sect ion and content) No Status Records FoundNo Status Records FoundNo Status Records FoundNo Status Records Found INFORMATION SOURCE (unrecogn ized section and content) DATE CREATED AUTHOR 04/07/2018 [employer] ([place]) DATE CREATED AUTHOR AUTHOR'S ORGANIZ ATION 09/27/2022 [facility] [employer] [facility] DATE CREATED AUTHOR AUTHOR'S ORGANIZ ATION 05/07/2024 [facility] [employer] [facility] DATE CREATED AUTHOR AUTHOR'S ORGANIZ ATION 06/06/2025 [facility] Goals (unrecognized section and content) Goals may be documented in a n alternate sectionGoals may be documented in an alternate sectionGoals may be documented in an alternate sectionGoals may be documented in an alternate sectionGoals may be documented in an alternate sectionGoals may be documented in an alternate sectionGoals may be documented in an alternate sectionGoals may be documented in an alternate sectionGoals may be documented in an alternate sectionGoals may be documented in an alternate sectionGoals may be documented in an alternate sectionGoals may be documented in an alternate sectionGoals may be documented in an alternate section Care Teams (unrecognized sec tion and content) Team Status: Active Member Role Status Dates Dr. Luli Roca MD Family Provider Active Dr. Luli Roca MD Primary Care Provider Active Team Status: Inactive Member Role Status Dates Dr. Luli Roca MD Primary Care Provider, Attending Provider Active Team Status: Inactive Member Role Status Dates Dr. Luli Roca MD Primary Care Provider Active Dr. Wilton Gomez MD Attending Provider, Referring Pr addis Active Team Status: Inactive Member Role Status Dates Dr. Luli Roca MD Primary Care Provi aquiles, Attending Provider, Referring Provider Active Team Status: Inactive Member Role Status Dates Dr. Luli Roca MD Primary Care Provider, Referring Provider Active Dr. Clint Thomas MD Attending Provider Active Team Status: Inactive Member Role Status Dates Dr. Luli Roca MD Primary Care Provider Active Dr. Clint Thomas MD Attending Provider, Referring P ryan Active Electronics Specialist Relationship Specialty Start Date End Date Ascencion Roca MD [address] [place] [address] PCP - General 05/09/22 Howard Abdalla MD [address] [facility] [address] [place] [address] Surgeon Urology 09/06/22 Electronics Specialist Relationship Specialty Start Date End Date Ascencion Roac MD [address] [place] [address] PCP - General 05/09/22 Howard Abdalla MD [address] [facility] [address] [place] [address] Surgeon Urology 09/06/22 Team Status: Active Member Role Status Dates Dr. Luli Roca MD Primary Care Provider Active Team Status: Inactive Member Role Status Dates Dr. Luli Roca MD Primary Care Provider Active Start: December 03, 2024 End: December 03, 2024 Dr. Luli Roca MD Attending Provider Active Start: December 03, 2024 End: December 03, 2024 Dr. Luli Roca MD Referring Provider Active Start: December 03, 2024 End: December 03, 2024 Team Status: Inactive Member Role Status Dates Dr. Luli Roca MD Primary Care Provider Active Start: February 24, 2025 End: February 24, 2025 Dr. Luli Roca MD Attending Provider Active Start: February 24, 2025 End: February 24, 2025 Dr. Luli Roca MD Referring Provider Active Start: February 24, 2025 End: February 24, 2025 Team Status: Inactive Member Role Status Dates Dr. Luli Roca MD Primary Care Provider Active Start: April 11, 2025 End: April 11, 2025 Dr. Luli Roca MD Attending Provider Active Start: April 11, 2025 End: April 11, 2025 Dr. Luli Roca MD Referring Provider Active Start: April 11, 2025 End: April 11, 2025 Team Status: Active Member Role/Relationship Status Dates Dr. Luli Roca MD Primary Care Provider Active Team Status: Inactive Member Role/Relationship Status Dates Dr. Luli Roca MD Primary Care Provider Active Start: February 24, 2025 End: February 24, 2025 Dr. Luli Roca MD Attending Provider Active Start: February 24, 2025 End: February 24, 2025 Dr. Luli Roca MD Referring Provider Active Start: February 24, 2025 End: February 24, 2025 Team Status: Inactive Member Role/Relationship Status Dates Dr. Luli Roca MD Primary Care Provider Active Start: April 11, 2025 End: April 11, 2025 Dr. Luli Roca MD Attending Provider Active Start: April 11, 2025 End: April 11, 2025 Dr. Luli Roca MD Referring Provider Active Start: April 11, 2025 End: April 11, 2025 Team Status: Inactive Member Role/Relationship Status Dates Dr. Luli Roca MD Primary Care Provider Active Start: May 23, 2025 End: May 23, 2025 Dr. Luli Roca MD Attending Provider Active Start: May 23, 2025 End: May 23, 2025 Dr. Luli Roca MD Referring Provider Active Start: May 23, 2025 End: May 23, 2025 Team Status: Inactive Member Role/Relationship Status Dates Dr. Luli Roca MD Primary Care Provider Active Start: June 03, 2025 End: June 03, 2025 Dr. Michael Poe MD Attending Provider Active Start: June 03, 2025 End: June 03, 2025 Dr. Michael Poe MD Referring Provider Active Start: June 03, 2025 End: June 03, 2025 Reason for Visit (unrecogniz ed section and content) Reason Onset Date Comments Med Refill 05/03/2024 FOR RECORDS PERTAINING TO PATIENTS WHO ARE [...] BE BASED ON THE PRIMARY CLINICAL RECORDS. [employer] [facility]. provides no warranty or guarantee of the accuracy or completeness of information in this document.
== END | disposition home or self-care (01) ==
LOC: RAD 14:19
PROVIDERS: PCP Family Medicine Geriatric Medicine; Referring Provider Urology; Visit Provider Urology
DX: N20.0 Calculus of kidney (principal)
CPT/HCPCS: 74018

== ENCOUNTER → 2025-08-30 | Outpatient (CLI) | payer MEDICARE, SELFPAY ==
[2025-08-30 11:17] LABS: Hematocrit 44.9 % (40-54); Hemoglobin 15.5 g/dL (13.0-16.5); Immature Granulocytes Count 0.020 X10^3/uL (0.0-0.0); Mean Corp Hgb Conc 34.5 g/dL (32-36); Mean Corpuscular Volume 87.0 fL (80-94); Mean Platelet Vol. 9.5 fl (6.2-12.0); NRBC Flagged by Analyzer 0 % (0-5); Platelet Count 211 K/mm3 (150-450); RBC Distribution Width CV 12.6 % (11.6-14.6); RBC Distribution Width SD 40.0 fl (35.1-43.9); Red Blood Count 5.16 M/mm3 (4.6-6.2); White Blood Count 7.0 K/mm3 (4.4-11.0)
[2025-08-30 12:26] LABS: Cholesterol 241 mg/dL (<=200); Low Density Lipoprotein Calc. 138 mg/dL; Triglycerides 218 mg/dL; Very Low Density Lipoprotein 44 mg/dL (5-40); Vitamin D,25 Hydroxy 19.1 ng/mL (30-100); cholesterol:hdl ratio screen 3.75
[2025-08-30 12:28] LABS: AST(SGOT) 22 U/L (<=37); Alanine Aminotransfer ALT/SGPT 19 U/L (<=46); Albumin, Serum 4.3 g/dL (3.4-4.8); Alkaline Phosphatase 67 U/L (40-129); Anion Gap 10 (5-15); BUN 16 mg/dL (4-19); BUN/Creat Ratio 17.8 RATIO (10-20); Calcium,Total 9.8 mg/dL (7.6-11.0); Carbon Dioxide 24.5 mmol/L (21.0-32.0); Chloride 100 mmol/L (98-108); Globulin 2.4 g/dL (2.2-4.2); Glucose 103 mg/dL (70-99); Potassium 4.7 mmol/L (3.3-5.1)
[2025-08-30 19:05] LABS: Xtra Tube Kwok EXTRA TUBE
== END | disposition home or self-care (01) ==
LOC: POLAB3 11:05
PROVIDERS: PCP Family Medicine Geriatric Medicine; Visit Provider Family Medicine Geriatric Medicine
DX: I10 Essential (primary) hypertension (principal); E55.9 Vitamin D deficiency, unspecified; E78.5 Hyperlipidemia, unspecified
CPT/HCPCS: 36415; 80053; 80061; 82306; 84443; 85025